=== PATIENT | female | born 1960 | race Caucasian/White ===

== ENCOUNTER 2022-07-05 14:25 | Emergency (ER) | payer SELFPAY ==
[2022-07-05 14:38] VITALS: BP 117/82; PULSE 106; RESP 18; TEMP 36.2; O2SAT 97; BMI 37.3
[2022-07-05 17:25] LABS: Appearance Urine Clear (Clear); Bilirubin Urine Negative (Negative); Blood Urine 1+ (Negative); Color Urine Yellow (Yellow); Glucose Urine Negative (Negative); Ketones Urine Negative (Negative); Leukocyte Esterase Urine 3+ (Negative); Nitrite Urine Negative (Negative); Protein Urine Negative (Negative); Specific Gravity Urine 1.015 (1.000-1.030)
--- NOTE | 2022-07-05 17:28 | CRLHL7_ITS ---
For Patients: As a result of the Cures Act, medical imaging exams and procedure reports are released immediately into your electronic medical record. You may view this report before your referring provider. If you have questions, please contact your health care provider. INDICATION: Cough, shortness of breath TECHNIQUE: Chest radiograph 2 views COMPARISON: None FINDINGS: The sensitivity and specificity of the exam are moderately limited by the patient`s body habitus. Mediastinum: The mediastinum is normal in appearance. The heart silhouette is normal in size and morphology. Lung: Both lungs are unremarkable in appearance. No sign of pleural effusion seen. No pneumothorax is identified. Bone and Soft tissue: Unremarkable for age. IMPRESSION: 1. No acute cardiopulmonary disease is seen. Dictated by: Adonay Polo MD @ 07/05/2022 18:45:23 (Electronically Signed)
--- NOTE | 2022-07-05 17:29 | ED.GENADULT ---
HPI - General Adult General Chief complaint: Shortness of Breath/Dyspnea Stated complaint: UTI, congestion, fever, shortness of breath Time Seen by Provider: 07/05/22 17:24 History of Present Illness HPI narrative: This 61-year-old female comes in reporting upper respiratory symptoms with productive cough and sore throat. She states that these symptoms started about a week ago. Her test for COVID was negative today. She states that she did have COVID toward the end of last month. She does not report any fevers. She does report some shortness of breath but arrives with oximetry at 97% on room air. She does have slight tachycardia. Related Data Home Medications Medication Instructions Recorded Confirmed chlorthalidone 25 mg tablet mg 07/05/22 cyclobenzaprine 5 mg tablet mg 07/05/22 duloxetine PO 07/05/22 lisinopril 10 mg tablet mg 07/05/22 ondansetron HCl 4 mg tablet mg 07/05/22 oxycodone 10 mg tablet,crush mg PO 07/05/22 resistant,extended release 12 hr (OxyContin) oxycodone 20 mg tablet,crush mg PO 07/05/22 resistant,extended release 12 hr (OxyContin) Previous Rx's Medication Instructions Recorded cephalexin 500 mg capsule 500 mg PO TID 7 days #21 caps 07/05/22 Allergies Allergy/AdvReac Type Severity Reaction Status Date / Time hydrochlorothiazide Allergy Unknown Verified 07/05/22 14:43 Review of Systems Status of ROS: Reports: 10 or more systems reviewed and unremarkable except as noted in History and below Narrative: Constitutional: No fevers, no weight gain or loss. Eyes: No discharge. No vision changes. HENT: No congestion, no sore throat, no ear pain. Laryngitis. Cardiovascular: No chest pain, no palpitations. Respiratory: Productive cough. Gastrointestinal: No abdominal pain, no vomiting, no diarrhea. Genitourinary: She wonders if she might have urinary tract infection. Musculoskeletal: Normal range of motion. Skin: No rashes, no pruritis. Neurological: No dizziness, weakness, sensory change, speech change. Endo/Heme/Allergies: No bruising or bleeding. No polydipsia. Pysch: no suicidality, no anxiety, no insomnia. All other systems reviewed and are negative. Exam Narrative: Exam Narrative: Constitutional: Well-developed, well-nourished, no acute distress. HEENT: Normocephalic, atraumatic. Neck: Normal range of motion. Nontender. Supple. Heart: Regular. No murmurs. Normal rate. Intact distal pulses. Lungs: Clear to auscultation. No chest discomfort. No wheezes, rhonchi, or rales. Abdomen: Normal bowel sounds. Nontender. No rebound tenderness. Genitalia: Deferred. Back: No midline tenderness. Normal range of motion. Extremities: Normal range of motion. No injury. Skin: Intact. No rash. Warm. No erythema or pallor. Neurologic: No altered sensation. No weakness. Alert and oriented. Psychiatric: No suicidality. No anxiety or depression. No insomnia. Nursing notes and vitals signs are reviewed. Const: Vital Signs, click to edit/add: Vital Signs - 24 hr 07/05/22 14:38 Temperature 97.1 F L Pulse Rate [Pulse Oximeter] 106 H Respiratory Rate 18 Blood Pressure [Ri ght Upper Arm] 117/82 Pulse Oximetry 97 Oxygen Delivery Me thod Room Air Course Vital Signs Vital signs: Initial Vital Signs Temperature 97.1 F L 07/05/22 14:38 Temperature Source Temporal Artery Scan 07/05/22 14:38 Pulse Rate 106 H 07/05/22 14:38 Respiratory Rate 18 07/05/22 14:38 Blood Pressure 117/82 07/05/22 14:38 Blood Pressure Mean 93 07/05/22 14:38 Blood Pressure Position Supine 07/05/22 14:38 Pulse Oximetry 97 07/05/22 14:38 Oxygen Delivery Method 07/05/22 14:38 Vital Signs Temperature 97.1 F L 07/05/22 14:38 Pulse Rate 106 H 07/05/22 14:38 Respiratory Rate 18 07/05/22 14:38 Blood Pressure 117/82 07/05/22 14:38 Pulse Oximetry 97 07/05/22 14:38 Oxygen Delivery Method 07/05/22 14:38 Temperature 97.1 F L 07/05/22 14:38 Pulse Rate 106 H 07/05/22 14:38 Respiratory Rate 18 07/05/22 14:38 Blood Pressure 117/82 07/05/22 14:38 Pulse Oximetry 97 07/05/22 14:38 Oxygen Delivery Method 07/05/22 14:38 Medical Decision Making MDM Narrative Medical decision making narrative: Urinalysis does show evidence of urinary tract infection. Patient received a prescription for Keflex. Chest x-ray by my review with radiology report pending shows no sign of acute infiltrate. If there is a possibility of a bacterial infection in the respiratory tract brewing, Keflex may help address this also. At the time of discharge the patient appears safe for outpatient management. The treatment plan is reviewed along with written and verbal return precautions. Reasons to return and the importance of close followup were also reviewed. Lab Data Labs: Lab Results 07/05/22 07/05/22 07/05/22 Range/Units 17:00 17:34 17:34 Urine Color Yellow (Yellow) Urine Appearance Clear (Clear) Urine pH 7.0 (5.0-8.5) Ur Specific [place] 1.015 (1.000-1.030) Urine Protein Negative (Negative) Urine Glucose (UA) Negative (Negative) Urine Ketones Negative (Negative) Urine Blood 1+ A (Negative) Urine Nitrite Negative (Negative) Urine Bilirubin Negative (Negative) Urine Urobilinogen 1.0 (0.2-1.0) Ur Leukocyte Esterase 3+ A (Negative) Urine RBC 0-2 (0-2) Urine WBC 25-50 A (0-5) Ur Squamous Epith Cells Few (None-Few) Urine Bacteria Moderate A (None) SARS-CoV-2 (PCR) Negative SARS-CoV-2 (Negative) Influenza Type A (PCR) Negative PCR FLU A (Negative) Influenza Type B (PCR) Negative PCR FLU B (Negative) RSV (PCR) Negative PCR RSV (Negative) Group A Strep DNA NOT DETECTED (Not Detectd) Discharge Plan Discharge Clinical Impression: UTI (urinary tract infection), URI (upper respiratory infection) Patient Disposition: Home, Self-Care Condition: Stable Additional Instructions: Take medication as prescribed. Follow up with MD or return if worsening. Prescriptions: New cephalexin 500 mg capsule 500 mg PO TID 7 Days Qty: 21 0RF No Action chlorthalidone 25 mg tablet Label Comments: TAKE 1 TABLET BY MOUTH ONCE DAILY duloxetine [Cymbalta] PO ondansetron HCl 4 mg tablet Label Comments: TAKE 1 TABLET BY MOUTH EVERY 8 HOURS NEEDED FOR NAUSEA lisinopril 10 mg tablet Label Comments: TAKE 1 TABLET BY MOUTH ONCE DAILY cyclobenzaprine 5 mg tablet Label Comments: TAKE 1 TO 2 TABLETS BY MOUTH EVERY 8 HOURS NEEDED oxycodone [OxyContin] 10 mg tablet,oral only,ext.rel.12 hr PO Label Comments: TAKE 1 TABLET BY ORAL ROUTE EVERY 12 HOURS FOR CHRONIC PAIN oxycodone [OxyContin] 20 mg tablet,oral only,ext.rel.12 hr PO Label Comments: TAKE 1 TABLET BY MOUTH EVERY 12 HOURS FOR CHRONIC PAIN Follow Up/Referrals: Provider,Not a Local [Primary Care Provider] - Stand Alone Forms: [employer] (P) Info Instructions
[2022-07-05 17:33] LABS: RBC Urine 0-2 (0-2)
[2022-07-05 17:34] LABS: Bacteria Urine Moderate; Squamous Epithelial Cell Urine Few (None-Few); WBC Urine 25-50 (0-5)
[2022-07-05 18:28] LABS: Strep A DNA Probe* NOT DETECTED (Not Detectd)
[2022-07-05 18:32] LABS: PCR FLU A Negative PCR FLU A (Negative); PCR FLU B Negative PCR FLU B (Negative); PCR RSV Negative PCR RSV (Negative)
[2022-07-05 18:35] LABS: SARS PCR* Negative SARS-CoV-2 (Negative)
== END 2022-07-05 18:47 | disposition home or self-care (01) ==
PROVIDERS: Emergency Provider Emergency Medicine Emergency Medical Services
DX: N39.0 Urinary tract infection, site not specified (principal); J06.9 Acute upper respiratory infection, unspecified
CPT/HCPCS: 71046; 81003; 81015; 87086; 87186; 87502; 87634; 87635; 87651; 99284

== ENCOUNTER 2022-09-22 09:19 | Emergency (ER) | payer SELFPAY ==
[2022-09-22 09:33] VITALS: BP 166/93; PULSE 94; RESP 20; TEMP 35.8; O2SAT 97; BMI 44.1
[2022-09-22 10:00] VITALS: BP 137/85; PULSE 90; RESP 16; O2SAT 96
--- NOTE | 2022-09-22 10:05 | ED.GENADULT ---
HPI - General Adult General Chief complaint: Weakness Stated complaint: Legs swollen/rashes, lumps on tongue Time Seen by Provider: 09/22/22 09:53 History of Present Illness HPI narrative: Patient is a 61 year white female who has fibromyalgia, chronic pain syndrome and is on narcotics from the pain clinic. She presents having no insurance with complaints of leg swelling as she has been out of her Lasix, she gets intermittent leg edema. She has not had by of history any significant heart failure. She takes it mostly for blood pressure issues. She has had some redness of the calves bilaterally, she is concerned she might have a UTI as well. She has no chest pain no shortness of breath. She has been on her regular doses of medicines except for the lisinopril and Lasix by her report, but her charts issues on chlorthalidone 25 mg daily. He has had some intermittent ear UTI type symptoms and wants this checked as well. No other specific complaints Related Data Home Medications Medication Instructions Recorded Confirmed chlorthalidone 25 mg tablet mg 07/05/22 cyclobenzaprine 5 mg tablet mg 07/05/22 duloxetine PO 07/05/22 lisinopril 10 mg tablet mg 07/05/22 ondansetron HCl 4 mg tablet mg 07/05/22 oxycodone 10 mg tablet,crush mg PO 07/05/22 resistant,extended release 12 hr (OxyContin) oxycodone 20 mg tablet,crush mg PO 07/05/22 resistant,extended release 12 hr (OxyContin) Previous Rx's Medication Instructions Recorded cephalexin 500 mg capsule 500 mg PO TID 7 days #21 caps 07/05/22 Allergies Allergy/AdvReac Type Severity Reaction Status Date / Time hydrochlorothiazide Allergy Unknown Verified 07/05/22 14:43 gluten Allergy Uncoded 09/22/22 09:41 Review of Systems Status of ROS: Reports: 6 or more systems reviewed and unremarkable except as noted in History and below PFSH PFSH Social History Smoking Status: Never smoker Do you use any of these nicotine containing products: None Second hand tobacco smoke exposure: Yes How often do you have a drink containing alcohol: never How often do you have six or more drinks on one occasion: Never AUDIT-C Alcohol total score: 0 Non-prescribed substance use: denies use service: No Exam Narrative: Exam Narrative: Objective: Patient's vital signs show elevated blood pressure O2 sats 97% on room air she is afebrile HEENT is unremarkable Neck is supple Chest is clear Heart rhythm rate rhythm regular without murmur Abdomen obese benign nontender Lower extremity shows some redness along in the distal 3rd of both legs mild 1+ edema of the lower extremities. Neurologic is non focal, good peripheral perfusion noted Const: Vital Signs, click to edit/add: Vital Signs - 24 hr 09/22/22 09:33 09/22/22 10:00 09/22/22 10:30 Temperature 96.5 F L Pulse Rate [Pulse Oximeter] 94 90 80 Respiratory Rate 20 16 16 Blood Pressure [Ri ght Forearm] 166/93 H 137/85 135/86 Pulse Oximetry 97 96 97 Oxygen Delivery Me thod Room Air Room Air Room Air 09/22/22 11:00 Temperature Pulse Rate [Pulse Oximeter] 78 Respiratory Rate 16 Blood Pressure [Ri ght Forearm] 144/86 H Pulse Oximetry 93 Oxygen Delivery Me thod Room Air Course Vital Signs Vital signs: Initial Vital Signs Temperature 96.5 F L 09/22/22 09:33 Temperature Source Temporal Artery Scan 09/22/22 09:33 Pulse Rate 94 09/22/22 09:33 Pulse Rhythm Regular 09/22/22 09:33 Respiratory Rate 20 09/22/22 09:33 Blood Pressure 166/93 H 09/22/22 09:33 Blood Pressure Mean 117 H 09/22/22 09:33 Pulse Oximetry 97 09/22/22 09:33 Oxygen Delivery Method Room Air 09/22/22 09:33 Vital Signs Temperature 96.5 F L 09/22/22 09:33 Pulse Rate 94 09/22/22 09:33 Respiratory Rate 20 09/22/22 09:33 Blood Pressure 166/93 H 09/22/22 09:33 Pulse Oximetry 97 09/22/22 09:33 Oxygen Delivery Method Room Air 09/22/22 09:33 Temperature 96.5 F L 09/22/22 09:33 Pulse Rate 78 09/22/22 11:00 Respiratory Rate 16 09/22/22 11:00 Blood Pressure 144/86 H 09/22/22 11:00 Pulse Oximetry 93 09/22/22 11:00 Oxygen Delivery Method Room Air 09/22/22 11:00 Medical Decision Making MDM Narrative Medical decision making narrative: Patient is a 61-year-old female without insurance who is currently under chronic pain management for fibromyalgia. She needs a refill on her chlorthalidone and lisinopril. I will write a prescription for this for her for 30 days. Social Service will check and see if there is a [facility] resource that she can get medications more chiefly. Recommend follow-up with primary care in 2-3 days certainly sooner changes or concerns. I am also going to give her prescription for Keflex 500 t.i.d. times 10 days for her leg inflammation and possible mild cellulitis. This should also cover UTI. If that turns out to be positive. Addendum 10 40 7p a a.m. patient's EKG shows low-voltage QRS but normal sinus rhythm, no acute ST T wave changes, white count is 4000 hemoglobin is 9.3 and should be followed up by the patient with primary care ER profile is unremarkable urinalysis is pending, but because of the patient's lower extremity cellulitis will treat her with Keflex, will follow up the urinalysis and urine culture as needed. Recommend recheck with primary care in 2-3 days certainly sooner changes or concerns return to ED. Lab Data Labs: Lab Results 09/22/22 09/22/22 Range/Units 09:55 10:14 WBC 4.06 L (4.50-11.00) K/uL RBC 3.13 L (4.00-5.20) m/uL Hgb 9.3 L (12.0-16.0) gm/dL Hct 29.1 L (33.0-51.0) % MCV 93 (80-100) fL MCH 30 (26-34) pg MCHC 32 (32-36) gm/dL RDW Coeff of Swapnil 14.1 (11.5-15.5) % Plt Count 253 (140-440) K/uL Neut % (Auto) 63.8 (42.0-72.0) % Lymph % (Auto) 22.2 (20-44) % [place] % (Auto) 8.9 (0.0-11.0) % Eos % (Auto) 4.4 (0.0-7.0) % Baso % (Auto) 0.5 (0.0-3.0) % Neut # (Auto) 2.60 (1.7-7.0) K/uL Lymph # (Auto) 0.90 (0.90-2.90) K/uL [place] # (Auto) 0.40 (0.00-0.90) K/UL Eos # (Auto) 0.20 (0.00-0.50) K/uL Baso # (Auto) 0.00 (0.00-0.30) K/uL Sodium 142 (135-149) mmol/L Potassium 3.6 (3.6-5.1) mmol/L Chloride 109 (96-114) mmol/L Carbon Dioxide 26 (20-32) mmol/L BUN 9 (7-30) mg/dL Creatinine 0.7 (0.5-1.5) mg/dL Estimated Creat Clear 81.01 Estimated GFR 100 ml/min Glucose 98 (60-115) mg/dL Calcium 8.6 (8.4-10.6) mg/dL C-Reactive Protein 1.0 (0.5-1.0) mg/dL Urine Color Yellow (Yellow) Urine Appearance Cloudy A (Clear) Urine pH 5.5 (5.0-8.5) Ur Specific [place] 1.010 (1.000-1.030) Urine Protein Negative (Negative) Urine Glucose (UA) Negative (Negative) Urine Ketones Negative (Negative) Urine Blood Trace-lysed A (Negative) Urine Nitrite Negative (Negative) Urine Bilirubin Negative (Negative) Urine Urobilinogen 0.2 (0.2-1.0) Ur Leukocyte Esterase 2+ A (Negative) Urine RBC 2-5 A (0-2) Urine WBC 50-100 A (0-5) Ur Squamous Epith Cells Few (None-Few) Urine Bacteria Moderate A (None) Discharge Plan Discharge Clinical Impression: Bilateral edema of lower extremity, Cellulitis, Hypertension, Anemia Patient Disposition: Home w/ Parent or Adult Condition: Stable Additional Instructions: Restart the chlorthalidone and lisinopril. Prescription written. Keflex 500 t.i.d. times 10 days for leg redness. Recheck with primary care in 2-3 days, elevate legs, return sooner problems concerns, low-salt diet. Hemoglobin is a little low, should talk about that with your regular doctor. Would recommend you also recheck with your regular doctor in 2-3 days. To make sure your legs are doing well. Would get any pain medication from her chronic pain clinic Activity Level: Light activity Discharge Diet: Heart Healthy (2 gm sodium, low fat) Prescriptions: No Action chlorthalidone 25 mg tablet Patient Comments: TAKE 1 TABLET BY MOUTH ONCE DAILY duloxetine [Cymbalta] PO ondansetron HCl 4 mg tablet Patient Comments: TAKE 1 TABLET BY MOUTH EVERY 8 HOURS NEEDED FOR NAUSEA lisinopril 10 mg tablet Patient Comments: TAKE 1 TABLET BY MOUTH ONCE DAILY cyclobenzaprine 5 mg tablet Patient Comments: TAKE 1 TO 2 TABLETS BY MOUTH EVERY 8 HOURS NEEDED oxycodone [OxyContin] 10 mg tablet,oral only,ext.rel.12 hr PO Patient Comments: TAKE 1 TABLET BY ORAL ROUTE EVERY 12 HOURS FOR CHRONIC PAIN oxycodone [OxyContin] 20 mg tablet,oral only,ext.rel.12 hr PO Patient Comments: TAKE 1 TABLET BY MOUTH EVERY 12 HOURS FOR CHRONIC PAIN cephalexin 500 mg capsule 500 mg PO TID 7 Days Qty: 21 0RF Follow Up/Referrals: Provider,Not a Local [Primary Care Provider] - Stand Alone Forms: [employer] Info Instructions
--- NOTE | 2022-09-22 10:10 | PC.NURSE ---
director of services consulted for no insurance and trouble filling her medications.
[2022-09-22] MEDS: FUROSEMIDE 40 MG TABLET PO (10:18)
--- NOTE | 2022-09-22 10:21 | ED.NURSE ---
marketing services coordinator met with patient and provided good RX cards and resources for [facility]. Patient very appreciative.
--- NOTE | 2022-09-22 10:21 | PC.SOCIAL ---
Pt. has no insurance. Gave pt. the information for [facility] through [facility] and [facility] and [place] [facility] card to use for prescriptions.
[2022-09-22 10:22] LABS: Basophils Percent Auto 0.5 % (0.0-3.0); Eosinophils Percent Auto 4.4 % (0.0-7.0); Hematocrit 29.1 % (33.0-51.0); Hemoglobin* 9.3 gm/dL (12.0-16.0); Immature Granulocytes Pct Auto 0.2 %; Lymphocytes Percent Auto 22.2 % (20-44); Mean Corpuscular HGB Conc 32 gm/dL (32-36); Mean Corpuscular Hemoglobin 30 pg (26-34); Mean Corpuscular Volume 93 fL (80-100); Monocytes Percent Auto 8.9 % (0.0-11.0); Neutrophils Percent Auto 63.8 % (42.0-72.0); Platelet Count* 253 K/uL (140-440); RDW Coefficient of Variation % 14.1 % (11.5-15.5); Red Blood Count 3.13 m/uL (4.00-5.20); White Blood Count* 4.06 K/uL (4.50-11.00)
[2022-09-22 10:30] VITALS: BP 135/86; PULSE 80; RESP 16; O2SAT 97
[2022-09-22 10:33] LABS: Slide Review Reflex No
[2022-09-22 10:38] LABS: Chloride* 109 mmol/L (96-114); Sodium* 142 mmol/L (135-149)
[2022-09-22 10:39] LABS: Potassium* 3.6 mmol/L (3.6-5.1)
[2022-09-22 10:40] LABS: Appearance Urine Cloudy (Clear); Bilirubin Urine Negative (Negative); Blood Urine Trace-lysed (Negative); Color Urine Yellow (Yellow); Glucose Urine Negative (Negative); Ketones Urine Negative (Negative); Leukocyte Esterase Urine 2+ (Negative); Nitrite Urine Negative (Negative); Protein Urine Negative (Negative); Urobilinogen Urine 0.2 (0.2-1.0); pH Urine 5.5 (5.0-8.5)
[2022-09-22 10:41] LABS: Creatinine* 0.7 mg/dL (0.5-1.5); Est. Creatinine Clearance* 81.01; Estimated Glomerular Filt Rate 100 ml/min
[2022-09-22 10:42] LABS: Blood Urea Nitrogen* 9 mg/dL (7-30); Calcium* 8.6 mg/dL (8.4-10.6); Carbon Dioxide* 26 mmol/L (20-32); Glucose* 98 mg/dL (60-115)
[2022-09-22 11:00] VITALS: BP 144/86; PULSE 78; RESP 16; O2SAT 93
[2022-09-22 11:13] LABS: Bacteria Urine Moderate; Squamous Epithelial Cell Urine Few (None-Few); WBC Urine 50-100 (0-5)
== END 2022-09-22 11:30 | disposition home or self-care (01) ==
LOC: ED 10:36
PROVIDERS: Emergency Provider Family Medicine
DX: R60.9 Edema, unspecified (principal); L03.116 Cellulitis of left lower limb; L03.115 Cellulitis of right lower limb; D64.9 Anemia, unspecified
CPT/HCPCS: 36415; 80048; 81001; 85025; 86140; 87086; 87186; 93005; 99284; A9270

== ENCOUNTER 2023-02-01 18:37 | Emergency (ER) | payer MEDICAID, SELFPAY ==
[2023-02-01] VITALS (55 sets, daily range): BP systolic 94–186; BP diastolic 37–156; PULSE 84–95; RESP 18; TEMP 36.5; O2SAT 89–100
--- NOTE | 2023-02-01 18:52 | CRLHL7_ITS ---
For Patients: As a result of the Cures Act, medical imaging exams and procedure reports are released immediately into your electronic medical record. You may view this report before your referring provider. If you have questions, please contact your health care provider. INDICATION: Headaches. Trauma. TECHNIQUE: Noncontrast axial CT of the head is submitted. No comparisons. FINDINGS: Moderate cerebral atrophy. The ventricles, sulci and gyri are of normal size, shape and contour for age and degree of atrophy. Midline structures are centrally located. No convincing evidence of suspicious intra- or extra-axial fluid collections. IMPRESSION: 1. No radiographic evidence of acute intracranial abnormalities. 2. Moderate cerebral atrophy. Dictated by Philip Denise MD @ 02/01/2023 7:30:05 PM Please note that all CT scans at this facility use dose modulation, iterative reconstruction, and/or weight-based dosing when appropriate to reduce radiation dose to as low as reasonably achievable. Dictated by: Philip Denise MD @ 02/01/2023 19:30:11 (Electronically Signed)
--- NOTE | 2023-02-01 18:52 | ED_ITS ---
HPI - Head Injury General Time Seen by Provider: 18:52 Date Seen: 02/01/23 Chief complaint: Head Injury/Pain Stated complaint: Bump on head, confusion Time Seen by Provider: 02/01/23 18:49 Source: patient, family and RN notes reviewed Mode of arrival: ambulatory Limitations: no limitations History of Present Illness HPI Narrative: This 62-year-old female is brought in by her for concern of new facial bruising and his being concerned. He left her for about an hour prior to arriving here, came home and she was confused, had bruising of her forehead. She can ambulate, does not remember what happen. She does take oxycodone for fibromyalgia but he controls them, he states she has not had any since about 10 or 11 this morning. If he does not control them, he admits that she will overuse them. She reportedly does not drink, does not use any other illicit substances. She does not remember what happened. She has bruising above her right forehead, is not on any blood thinners. Her states the bruising was not there. She did fall a couple days ago and has bruising on her right humeral area, remembers falling forward hitting her arm. She is seemingly confused but alert. Neither of them really have any idea what happened to her. When ask her if she has pain, she says a little bit but does not define where. She is not giving me any complaint of pain in her head, no neck or back pain but later when ask her, she maybe has some neck pain. She is ambulatory here. Denies pain in her legs, does state her left shoulder hurts later on. Denies any difficulty breathing, no chest pain, no abdominal pain. She is not noted to have been sick prior to any of this. Complaint: head injury Related Data Home Medications Medication Instructions Recorded Confirmed chlorthalidone 25 mg tablet mg 07/05/22 cyclobenzaprine 5 mg tablet mg 07/05/22 duloxetine PO 07/05/22 lisinopril 10 mg tablet mg 07/05/22 ondansetron HCl 4 mg tablet mg 07/05/22 oxycodone 10 mg tablet,crush mg PO 07/05/22 resistant,extended release 12 hr (OxyContin) oxycodone 20 mg tablet,crush mg PO 07/05/22 resistant,extended release 12 hr (OxyContin) Previous Rx's Medication Instructions Recorded cephalexin 500 mg capsule 500 mg PO TID 7 days #21 caps 07/05/22 Allergies Allergy/AdvReac Type Severity Reaction Status Date / Time hydrochlorothiazide Allergy Unknown Verified 02/01/23 18:56 gluten Allergy Uncoded 09/22/22 09:41 Review of Systems Status of ROS: Reports: 6 or more systems reviewed and unremarkable except as noted in History and below PFSH PFS Social History Smoking Status: Never smoker Do you use any of these nicotine containing products: None Second hand tobacco smoke exposure: Yes How often do you have a drink containing alcohol: never How often do you have six or more drinks on one occasion: Never AUDIT-C Alcohol total score: 0 Non-prescribed substance use: denies use service: No Exam Const: Vital Signs, click to edit/add: Vital Signs - 24 hr 02/01/23 18:59 02/01/23 19:18 02/01/23 19:19 Temperature 97.7 F Pulse Rate 88 87 Pulse Rate [Pulse Oximeter] 90 Respiratory Rate 18 Blood Pressure 163/93 H Blood Pressure [Ri ght Upper Arm] 139/79 Pulse Oximetry 95 100 100 Oxygen Delivery Me thod Room Air 02/01/23 19:22 02/01/23 19:26 02/01/23 19:30 Temperature Pulse Rate 87 86 Pulse Rate [Pulse Oximeter] Respiratory Rate Blood Pressure 170/99 H 158/95 H Blood Pressure [Ri ght Upper Arm] Pulse Oximetry 100 99 Oxygen Delivery Me thod 02/01/23 19:31 02/01/23 19:37 02/01/23 19:42 Temperature Pulse Rate 87 85 90 Pulse Rate [Pulse Oximeter] Respiratory Rate Blood Pressure 164/92 H 186/156 H 146/96 H Blood Pressure [Ri ght Upper Arm] Pulse Oximetry 99 97 89 Oxygen Delivery Me thod 02/01/23 19:45 02/01/23 19:57 02/01/23 20:00 Temperature Pulse Rate 88 87 87 Pulse Rate [Pulse Oximeter] Respiratory Rate Blood Pressure 141/87 H Blood Pressure [Ri ght Upper Arm] Pulse Oximetry 99 99 97 Oxygen Delivery Me thod 02/01/23 20:02 02/01/23 20:07 02/01/23 20:12 Temperature Pulse Rate 87 86 85 Pulse Rate [Pulse Oximeter] Respiratory Rate Blood Pressure 155/64 H 152/102 H 119/89 Blood Pressure [Ri ght Upper Arm] Pulse Oximetry 98 98 98 Oxygen Delivery Me thod 02/01/23 20:15 02/01/23 20:17 02/01/23 20:21 Temperature Pulse Rate 86 85 87 Pulse Rate [Pulse Oximeter] Respiratory Rate Blood Pressure 138/70 156/95 H Blood Pressure [Ri ght Upper Arm] Pulse Oximetry 97 97 97 Oxygen Delivery Me thod 02/01/23 20:27 02/01/23 20:30 02/01/23 20:31 Temperature Pulse Rate 84 85 84 Pulse Rate [Pulse Oximeter] Respiratory Rate Blood Pressure 156/87 H 154/96 H Blood Pressure [Ri ght Upper Arm] Pulse Oximetry 98 97 96 Oxygen Delivery Me thod 02/01/23 20:37 02/01/23 20:41 02/01/23 20:45 Temperature Pulse Rate 87 87 90 Pulse Rate [Pulse Oximeter] Respiratory Rate Blood Pressure 153/107 H 143/84 H Blood Pressure [Ri ght Upper Arm] Pulse Oximetry 97 98 98 Oxygen Delivery Me thod 02/01/23 20:47 02/01/23 20:52 02/01/23 20:53 Temperature Pulse Rate 89 90 89 Pulse Rate [Pulse Oximeter] Respiratory Rate Blood Pressure 130/87 136/98 H Blood Pressure [Ri ght Upper Arm] Pulse Oximetry 97 99 98 Oxygen Delivery Me thod 02/01/23 20:58 02/01/23 21:00 02/01/23 21:02 Temperature Pulse Rate 88 86 86 Pulse Rate [Pulse Oximeter] Respiratory Rate Blood Pressure 94/80 149/92 H Blood Pressure [Ri ght Upper Arm] Pulse Oximetry 98 98 98 Oxygen Delivery Me thod 02/01/23 21:08 02/01/23 21:12 02/01/23 21:15 Temperature Pulse Rate 89 87 89 Pulse Rate [Pulse Oximeter] Respiratory Rate Blood Pressure 108/87 147/85 H Blood Pressure [Ri ght Upper Arm] Pulse Oximetry 99 97 99 Oxygen Delivery Me thod 02/01/23 21:17 02/01/23 21:22 02/01/23 21:28 Temperature Pulse Rate 88 84 84 Pulse Rate [Pulse Oximeter] Respiratory Rate Blood Pressure 143/85 H 123/95 H 145/87 H Blood Pressure [Ri ght Upper Arm] Pulse Oximetry 99 98 99 Oxygen Delivery Me thod 02/01/23 21:30 02/01/23 21:31 02/01/23 21:37 Temperature Pulse Rate 85 85 85 Pulse Rate [Pulse Oximeter] Respiratory Rate Blood Pressure 149/86 H 149/78 H Blood Pressure [Ri ght Upper Arm] Pulse Oximetry 98 99 99 Oxygen Delivery Me thod 02/01/23 21:42 02/01/23 21:45 02/01/23 21:47 Temperature Pulse Rate 87 88 92 Pulse Rate [Pulse Oximeter] Respiratory Rate Blood Pressure 156/85 H 163/114 H Blood Pressure [Ri ght Upper Arm] Pulse Oximetry 98 99 98 Oxygen Delivery Wa thod 62-year-old female that is moving her ar ms and legs around, is able to speak, speech seems normal. Pupils are small but has a conjugate gaze, sclera clear. There is no periorbital swelling or erythema. She has ecchymosis above her right supraorbital ridge in on the forehead. No open wounds. No drainage in the ears or from the nares noted. No oral pharyngeal trauma noted. She sits up without any asking, no definite midline tenderness of her cervical or lower spine, no visible traumatic changes. No paraspinous tenderness. Lying in the bed she will move her head from side to side. No cervical adenopathy, no thyromegaly masses or nodules. Lungs are clear, good air entry, no wheezing or crackles. CV sounds regular, systolic murmur noted, probably 2/6 heard upper sternal borders best. Abdomen is soft, non distended, nontender anywhere. Do not feel any masses. Again exam is nonfocal, will follow commands, upper lower extremities without any focal neurologic deficits, see an old bruise on her upper outer lateral humeral area, watch her move her arms about in bed. Documenting provider has reviewed patient's vital signs: yes Course Course ED Course: I would say her presenting GCS is 14/15 due to some probable confusion. She definitely has bruising on the right frontal forehead area and above the eye, will proceed with a head CT, given some complaints of neck pain will get CT of her cervical spine. Will also get of a chest x-ray as well as left shoulder imaging. She does seem to have altered mental status, will do metabolic, infectious workup as well. I do think toxidrome is a are certainly potential here. She will be on cardiac monitoring, pulse oximetry. Reevaluation(s) Time of Reevaluation #1: 20:53 Reevaluation #1: Patient's son is here right now, is returning. Patient is more awake but son feels she still quite confused. She knows his birthday, her own birthday, thinks the year is 2021, cannot give me anything beyond that for date. She does know she is at [facility]. Her son saw her last night, she was not like this and did not have the bruise on her forehead. She denies using extra oxycodone. Besides the confusion, she does not have a focal neurologic exam. Discussed with them that she may need observation for this significant confusion and amnesia for the events, consideration for MRI in the morning could be entertained if felt clinically appropriate. May need to talk to our hospitalist. Believe there is still a few labs that we are waiting on at this time. Did review x-ray imaging with them. She states she is just really thirsty, will allow her to drink. Consultations Consultation #1: Spoke with hospitalist Dr. Diana, reviewed the drug screen positive for tricyclic antidepressants and oxycodone. Her does not nor medications. I see no hemodynamic changes or EKG changes that are concerning for tricyclic overdose. She has some relative mild hypokalemia with a potassium of 3.3 which is not responsible for these changes. As discussed with her son, this all could be significant concussion with confusion and amnesia for events. Have spoken with Dr. Diana the hospitalist, believe patient should be observed overnight and if not clearing, consideration for MRI and possibly need to talk to Neurology tomorrow. He concurs with the plan, will be down to see her. I do not think she needs any neuro imaging with CTAs at this time, I did not find any focal neurologic examination suggestive of stroke, did ask Dr. Diana to reassess as well. Time: 21:00 Vital Signs Vital signs: Initial Vital Signs Temperature 97.7 F 02/01/23 18:59 Temperature Source Temporal Artery Scan 02/01/23 18:59 Pulse Rate 90 09/19/23 18:59 Respiratory Rate 18 02/01/23 18:59 Blood Pressure 139/79 02/01/23 18:59 Blood Pressure Mean 99 02/01/23 18:59 Blood Pressure Position Sitting 02/01/23 18:59 Pulse Oximetry 95 02/01/23 18:59 Oxygen Delivery Method Room Air 02/01/23 18:59 Vital Signs Temperature 97.7 F 02/01/23 18:59 Pulse Rate 90 02/01/23 18:59 Respiratory Rate 18 02/01/23 18:59 Blood Pressure 139/79 02/01/23 18:59 Pulse Oximetry 95 02/01/23 18:59 Oxygen Delivery Method Room Air 02/01/23 18:59 Temperature 97.7 F 02/01/23 18:59 Pulse Rate 92 02/01/23 21:47 Respiratory Rate 18 02/01/23 18:59 Blood Pressure 163/114 H 02/01/23 21:47 Pulse Oximetry 98 02/01/23 21:47 Oxygen Delivery Method Room Air 02/01/23 18:59 MDM - Head Injury Lab Data Attestation: I reviewed the patient's lab results. Labs: Lab Results 02/01/23 02/01/23 02/01/23 Range/Units 19:56 20:00 20:20 WBC 8.47 (4.50-11.00) K/uL RBC 4.25 (4.00-5.20) m/uL Hgb 12.3 (12.0-16.0) gm/dL Hct 37.1 (33.0-51.0) % MCV 87 (80-100) fL MCH 29 (26-34) pg MCHC 33 (32-36) gm/dL RDW Coeff of Swapnil 15.0 (11.5-15.5) % Plt Count 343 (140-440) K/uL Neut % (Auto) 72.3 H (42.0-72.0) % Lymph % (Auto) 19.8 L (20-44) % Spalding % (Auto) 7.0 (0.0-11.0) % Eos % (Auto) 0.5 (0.0-7.0) % Baso % (Auto) 0.2 (0.0-3.0) % Neut # (Auto) 6.10 (1.7-7.0) K/uL Lymph # (Auto) 1.70 (0.90-2.90) K/uL Spalding # (Auto) 0.60 (0.00-0.90) K/UL Eos # (Auto) 0.04 (0.00-0.50) K/uL Baso # (Auto) 0.02 (0.00-0.30) K/uL Abs Immat Gran (auto) 0.02 (0.00-0.30) K/uL Imm/Tot Granulo (auto) 0.2 % Sodium 143 (135-149) mmol/L Potassium 3.3 L (3.6-5.1) mmol/L Chloride 106 (96-114) mmol/L Carbon Dioxide 26 (20-32) mmol/L Anion Gap 11 (7-15) mEq/L BUN 25 (7-30) mg/dL Creatinine 0.9 (0.5-1.5) mg/dL Estimated GFR 73 ml/min Glucose 119 H (60-115) mg/dL Lactate 1.4 (0.5-1.9) mmol/L Calcium 9.8 (8.4-10.6) mg/dL Total Bilirubin 0.8 (0.1-1.5) mg/dL AST 39 H (12-35) U/L ALT 25 (4-35) U/L Alkaline Phosphatase 88 (40-150) U/L C-Reactive Protein 0.6 (0.5-1.0) mg/dL Total Protein 7.9 (6.0-8.3) g/dL Albumin 4.6 (3.3-5.0) g/dL Urine Color Xochitl A (Yellow) Urine Appearance Clear (Clear) Urine pH 5.5 (5.0-8.5) Ur Specific Jewett >= 1.030 (1.000-1.030) Urine Protein Trace A (Negative) Urine Glucose (UA) Negative (Negative) Urine Ketones 1+ A (Negative) Urine Blood Negative (Negative) Urine Nitrite Negative (Negative) Urine Bilirubin Negative (Negative) Urine Urobilinogen 0.2 (0.2-1.0) Ur Leukocyte Esterase Negative (Negative) Urine RBC 0-2 (0-2) Urine WBC 0-2 (0-5) Ur Squamous Epith Cells Few (None-Few) Urine Bacteria Few A (None) Urine Opiates Screen Negative (Negative) Ur Oxycodone Screen POSITIVE A (Negative) Urine Methadone Screen Negative (Negative) Ur Propoxyphene Screen Negative (Negative) Ur Barbiturates Screen Negative (Negative) U Tricyclic Antidepress POSITIVE A (Negative) Ur Phencyclidine Scrn Negative (Negative) Ur Amphetamines Screen Negative (Negative) U Methamphetamines Scrn Negative (Negative) U Benzodiazepines Scrn Negative (Negative) Urine Cocaine Screen Negative (Negative) U Marijuana (THC) Screen Negative (Negative) Ur Drug Screen Comment See Note Ethyl Alcohol < 0.01 L (0.01-0.03) % SARS-CoV-2 (PCR) Negative SARS-CoV-2 (Negative) POC Troponin I 0.00 L (0.01-0.04) ng/ml Imaging Data CT scan - head: Attestation: I have reviewed the pertinent imaging results. Radiologist's impression: Patient: STEVIE ABDULLAHI Facility:[facility] Patient ID:?[id number] Site Patient ID:?[id number]. Site :?1960 Study:?CT Head CODE TRAUMA-02/01/2023 7:25:38 PM Ordering Physician:Qamar Lee Final Report: INDICATION: Headaches. Trauma. TECHNIQUE: Noncontrast axial CT of the head is submitted. No comparisons. FINDINGS: Moderate cerebral atrophy. The ventricles, sulci and gyri are of normal size, shape and contour for age and degree of atrophy. Midline structures are centrally located. No convincing evidence of suspicious intra- or extra-axial fluid collections. IMPRESSION: 1. No radiographic evidence of acute intracranial abnormalities. 2. Moderate cerebral atrophy. Dictated by Philip Denise MD @ 02/01/2023 7:30:05 PM Please note that all CT scans at this facility use dose modulation, iterative reconstruction, and/or weight-based dosing when appropriate to reduce radiation dose to as low as reasonably achievable. Dictated by: Philip Denise MD @ 02/01/2023 19:30:11 (Electronic Signature) CT cervical spine: Attestation: I have reviewed the pertinent imaging results. Radiologist's impression: Patient: STEVIE ABDULLAHI Facility:?[facility] Patient ID:?[id number] Site Patient ID:?[id number]. Site :?1960 Study:?CT Spine Cervical CODE TRAUMA-02/01/2023 7:26:19 PM Ordering Physician:Qamar Lee Final Report: Indication: Neck pain. Trauma. Technique: Noncontrast axial CT of the cervical spine with coronal and sagittal reformats are provided. No comparisons. Findings: The overall stature, alignment of the cervical spine is within normal limits. No convincing evidence of suspicious bony fragments narrowing the central canal or neural foramina. Prevertebral soft tissues, cervical airway, dens and lateral masses are within normal limits. Mild scattered degenerative changes of the cervical spine. Impression: 1. No convincing radiographic evidence of acute osseous injury. 2. Mild scattered degenerative changes of the cervical spine. Dictated by Philip Denise MD @ 02/01/2023 7:31:28 PM Please note that all CT scans at this facility use dose modulation, iterative reconstruction, and/or weight-based dosing when appropriate to reduce radiation dose to as low as reasonably achievable. Dictated by: Philip Denise MD @ 02/01/2023 19:31:35 (Electronic Signature) Chest x-ray: Attestation: I have reviewed the pertinent imaging results. Radiologist's impression: Patient: STEVIE ABDULLAHI Facility:[facility] Patient ID:?[id number] Site Patient ID:?[id number]. Site :?1960 Study:?XRay Chest 1 VIEW-02/01/2023 7:26:54 PM Ordering Physician:?Marcella Lee Final Report: INDICATION: Fall TECHNIQUE: Single view chest. FINDINGS: The lungs are clear. The heart, mediastinum and pulmonary vessels are of normal size. There is no evidence of pleural disease. IMPRESSION: Negative chest. Dictated by Lilly Sahu MD @ 02/01/2023 8:36:11 PM (Electronic Signature) XR left shoulder: Attestation: I have reviewed the pertinent imaging results. Radiologist's impression: Patient: STEVIE ABDULLAHI Facility:[facility] Patient ID:?[id number] Site Patient ID:?[id number]. Site :?1960 Study:?XRay Shoulder Left -02/01/2023 7:26:42 PM Ordering Physician:Qamar Lee Final Report: INDICATION: Fall TECHNIQUE: Three views left shoulder FINDINGS: Normal alignment. No acute fractures or acute osseous abnormalities. Normal a rticulation glenohumeral joint. Calcific tendinosis. IMPRESSION: No acute fracture. Dictated by Lilly Sahu MD @ 02/01/2023 8:35:38 PM (Electronic Signature) ECG Data Attestation: I personally reviewed and interpreted this ECG as follows: (Sinus rhythm, 87 beats per minute. No ischemia. QT corrected 440 milliseconds.) ECG interpretation date: 02/01/23 ECG interpretation time: 19:06 Prior ECG tracings: not available for review Discharge Plan Discharge Clinical Impression: Amnesia, Closed head injury, Acute confusion Patient Disposition: Home w/ Parent or Adult Condition: Unchanged Activity Level: Activity as Tolerated
--- NOTE | 2023-02-01 18:54 | CRLHL7_ITS ---
For Patients: As a result of the Century Cures Act, medical imaging exams and procedure reports are released immediately into your electronic medical record. You may view this report before your referring provider. If you have questions, please contact your health care provider. INDICATION: Fall TECHNIQUE: Single view chest. FINDINGS: The lungs are clear. The heart, mediastinum and pulmonary vessels are of normal size. There is no evidence of pleural disease. IMPRESSION: Negative chest. Dictated by Lilly Sahu MD @ 02/01/2023 8:36:11 PM (Electronically Signed)
--- NOTE | 2023-02-01 18:54 | CRLHL7_ITS ---
For Patients: As a result of the Century Cures Act, medical imaging exams and procedure reports are released immediately into your electronic medical record. You may view this report before your referring provider. If you have questions, please contact your health care provider. INDICATION: Fall TECHNIQUE: Three views left shoulder FINDINGS: Normal alignment. No acute fractures or acute osseous abnormalities. Normal articulation glenohumeral joint. Calcific tendinosis. IMPRESSION: No acute fracture. Dictated by Lilly Sahu MD @ 02/01/2023 8:35:38 PM (Electronically Signed)
--- NOTE | 2023-02-01 18:54 | CRLHL7_ITS ---
For Patients: As a result of the Century Cures Act, medical imaging exams and procedure reports are released immediately into your electronic medical record. You may view this report before your referring provider. If you have questions, please contact your health care provider. Indication: Neck pain. Trauma. Technique: Noncontrast axial CT of the cervical spine with coronal and sagittal reformats are provided. No comparisons. Findings: The overall stature, alignment of the cervical spine is within normal limits. No convincing evidence of suspicious bony fragments narrowing the central canal or neural foramina. Prevertebral soft tissues, cervical airway, dens and lateral masses are within normal limits. Mild scattered degenerative changes of the cervical spine. Impression: 1. No convincing radiographic evidence of acute osseous injury. 2. Mild scattered degenerative changes of the cervical spine. Dictated by Philip Denise MD @ 02/01/2023 7:31:28 PM Please note that all CT scans at this facility use dose modulation, iterative reconstruction, and/or weight-based dosing when appropriate to reduce radiation dose to as low as reasonably achievable. Dictated by: Philip Denise MD @ 02/01/2023 19:31:35 (Electronically Signed)
[2023-02-01 20:08] LABS: Lactate* 1.4 mmol/L (0.5-1.9)
[2023-02-01 20:10] LABS: Amphetamine Screen Urine Negative (Negative); Appearance Urine Clear (Clear); Barbiturate Screen Urine Negative (Negative); Benzodiazepines Screen Urine Negative (Negative); Bilirubin Urine Negative (Negative); Blood Urine Negative (Negative); Cannabinoid Screen Urine Negative (Negative); Cocaine Screen Urine Negative (Negative); Color Urine Amber (Yellow); Glucose Urine Negative (Negative); Ketones Urine 1+ (Negative); Leukocyte Esterase Urine Negative (Negative); Methadone Screen Urine Negative (Negative); Methamphetamines Screen Urine Negative (Negative); Nitrite Urine Negative (Negative); Opiate Screen Urine Negative (Negative); Oxycodone Screen Urine POSITIVE (Negative); Phencyclidine Screen Urine Negative (Negative); Protein Urine Trace (Negative); Specific Gravity Urine >= 1.030 (1.000-1.030); Tricyclic Antidepressant Urine POSITIVE (Negative); Urobilinogen Urine 0.2 (0.2-1.0); pH Urine 5.5 (5.0-8.5)
[2023-02-01 20:17] LABS: Bacteria Urine Few; RBC Urine 0-2 (0-2); Squamous Epithelial Cell Urine Few (None-Few); WBC Urine 0-2 (0-5)
[2023-02-01 20:20] LABS: Basophils Absolute Auto 0.02 K/uL (0.00-0.30); Basophils Percent Auto 0.2 % (0.0-3.0); Eosinophils Absolute Auto 0.04 K/uL (0.00-0.50); Eosinophils Percent Auto 0.5 % (0.0-7.0); Hematocrit 37.1 % (33.0-51.0); Hemoglobin* 12.3 gm/dL (12.0-16.0); Immature Granulocytes Abs Auto 0.02 K/uL (0.00-0.30); Immature Granulocytes Pct Auto 0.2 %; Lymphocytes Percent Auto 19.8 % (20-44); Mean Corpuscular HGB Conc 33 gm/dL (32-36); Mean Corpuscular Hemoglobin 29 pg (26-34); Mean Corpuscular Volume 87 fL (80-100); Neutrophils Percent Auto 72.3 % (42.0-72.0); Platelet Count* 343 K/uL (140-440); Red Blood Count 4.25 m/uL (4.00-5.20); White Blood Count* 8.47 K/uL (4.50-11.00)
[2023-02-01 20:23] LABS: Slide Review Reflex No
[2023-02-01 20:37] LABS: Albumin* 4.6 g/dL (3.3-5.0); Chloride* 106 mmol/L (96-114); Potassium* 3.3 mmol/L (3.6-5.1); Sodium* 143 mmol/L (135-149)
[2023-02-01 20:39] LABS: Bilirubin Total* 0.8 mg/dL (0.1-1.5); Creatinine* 0.9 mg/dL (0.5-1.5); Estimated Glomerular Filt Rate 73 ml/min
[2023-02-01 20:40] LABS: Alanine Aminotransferase* 25 U/L (4-35); Alkaline Phosphatase* 88 U/L (40-150); Anion Gap 11 mEq/L (7-15); Aspartate Amino Transferase* 39 U/L (12-35); Blood Urea Nitrogen* 25 mg/dL (7-30); Carbon Dioxide* 26 mmol/L (20-32); Glucose* 119 mg/dL (60-115); Total Protein* 7.9 g/dL (6.0-8.3)
[2023-02-01 20:41] LABS: Calcium* 9.8 mg/dL (8.4-10.6); Ethanol* < 0.01 % (0.01-0.03)
[2023-02-01 20:43] LABS: C Reactive Protein* 0.6 mg/dL (0.5-1.0)
[2023-02-01 21:10] LABS: SARS PCR* Negative SARS-CoV-2 (Negative)
--- NOTE | 2023-02-01 21:48 | ED.NURSE ---
nurse to nurse report given
--- NOTE | 2023-02-01 22:12 | PM.IMHP1 ---
Hospitalist- H&P: HPI History of Present Illness Date Seen: 02/01/23 Chief complaint: Bump on head, confusion Narrative: Georgiana España is a 62 year old female with chronic pain, fibromyalgia, obesity, hypertension admitted to the hospital after being found down at home by her , confused and with a bruise over her right forehead. The patient does not recall any of the events that occurred leading up to her being found down by her . reports that he was at home with her until about 3:00 p.m. today. He left the house for about an hour and returned about 4:00 p.m. at that time he found her partly laying on the bed. She seemed confused and did not recall anything that happened. She has a new bruise above her right eyebrow. Her son came home about 530. He noted that her pupils were quite small though he was looking at her outside in the sunshine. She is brought to the emergency room for evaluation. She does have occasional problems with falling at home. She does not have any history of syncope or seizure. She has no recollection of ever having a loss of consciousness episode or finding herself on the floor. She is on chronic oxycodone 10 mg q.i.d. and OxyContin 20 mg b.i.d. her controls her opioids in says he she does not have access to them. She denies taking excess. She denies any other ingestions of mood altering substances. She reports taking her medications as prescribed. In the emergency department she had evaluation including head and C-spine CT scan showing no acute injury. Vital signs have been normal other than persistent hypertension. Her mental status is back to baseline. She is adamantly demanding to go home. She reports no recent illness, shortness of breath, chest pain, abdominal pain, nausea, vomiting, diarrhea, urinary problems. No bleeding or clotting problems. She does report feeling dehydrated today but has not had any restriction on access to food and fluid. She also reports being quite fatigued recently. She reports this is been going on for months or years. I was asked to admit the patient to the hospital for ongoing neurologic monitoring. Review of Systems Narrative: Other than events above happening today there is been no other significant illness or injury. She did fall and bruise her arm a few days ago but no other recent injuries [facility] Medical History (Updated 02/01/23 @ 22:38 by Shawn Diana MD) Ataxia ?R27.0 - Ataxia, unspecified (ICD-10) Humeral fracture ?S42.309A - Unspecified fracture of shaft of humerus, unspecified arm, initial encounter for closed fracture (ICD-10) Fibromyalgia ?M79.7 - Fibromyalgia (ICD-10) Chronic back pain ?M54.9 - Dorsalgia, unspecified (ICD-10) ?G89.29 - Other chronic pain (ICD-10) Obesity ?E66.9 - Obesity, unspecified (ICD-10) Chronic, continuous use of opioids ?F11.90 - Opioid use, unspecified, uncomplicated (ICD-10) Chronic pain ?G89.29 - Other chronic pain (ICD-10) Concussion ?S06.0XAA - Concussion with loss of consciousness status unknown, initial encounter (ICD-10) Surgical History History of cholecystectomy ?Z90.49 - Acquired absence of other specified parts of digestive tract (ICD-10) History of gastric bypass ?Z98.84 - Bariatric surgery status (ICD-10) Family History (Updated 02/01/23 @ 22:32 by Shawn Diana MD) Father Heart disease Stroke Substance use disorder Mother Diabetes High blood pressure Social History (Updated 02/01/23 @ 22:33 by Shawn Diana MD) Narrative: She lives with her who is with her most the time during the day. She does not smoke. She occasionally drinks alcohol. Her and son are present with her in the emergency department today. She does not drive. Smoking Status: Never smoker Do you use any of these nicotine containing products: None Second hand tobacco smoke exposure: Yes How often do you have a drink containing alcohol: never How often do you have six or more drinks on one occasion: Never AUDIT-C Alcohol total score: 0 Non-prescribed substance use: denies use service: No Meds Home Medications and Allergies Home Medications Medication Instructions Recorded Confirmed Type chlorthalidone 25 mg tablet mg 07/05/22 History cyclobenzaprine 5 mg tablet mg 07/05/22 History duloxetine PO 07/05/22 History lisinopril 10 mg tablet mg 07/05/22 History ondansetron HCl 4 mg tablet mg 07/05/22 History oxycodone 10 mg tablet,crush mg PO 07/05/22 History resistant,extended release 12 hr (OxyContin) oxycodone 20 mg tablet,crush mg PO 07/05/22 History resistant,extended release 12 hr (OxyContin) Allergies Allergy/AdvReac Type Severity Reaction Status Date / Time hydrochlorothiazide Allergy Unknown Verified 02/01/23 18:56 gluten Allergy Uncoded 09/22/22 09:41 Exam Narrative: Exam Narrative: She is alert and oriented to her circumstances. She is observed to be having a conversation with her and son when I walk in. Her speech is fluent. She is able to give her own history except has no recall of the events around her head injury. Head is notable for bruising over her forehead and right eyebrow. There is no facial asymmetry. Pupils are equal round reactive to light and extraocular movements are full. Visual barragan are intact. There is no facial asymmetry. Oropharynx is normal except for small airway. Neck is supple without mass or adenopathy. Respirations are clear to auscultation. Cardiovascular: S1, S2, 2/6 systolic murmur heard best at the left lower sternal border. No gallop or rub. Regular rate and rhythm. Abdomen: Bowel sounds active. Abdomen is soft without tenderness or mass. Upper extremity strength testing is full and symmetric in finger extension wrist flexion extension, elbow flexion extension, shoulder flexion extension bilaterally. Cgrrmu-tipe-[id number] is fairly accurate. Lower extremity strength testing shows 5/5 strength in hip flexion, knee flexion and extension and ankle dorsiflexion and plantar flexion bilaterally. Heel-combs is fairly accurate. She has mild ataxia with both kgtdid-lyfq-eudyvb and heel-combs bilaterally. No significant edema. Intact pedal pulses. Bruise on her are arm and forehead but no other obvious bruising or trauma. Const: Vital Signs, click to edit/add: Vital Signs - 24 hr 02/01/23 18:59 02/01/23 19:18 02/01/23 19:19 Temperature 97.7 F Pulse Rate 88 87 Pulse Rate [Pulse Oximeter] 90 Respiratory Rate 18 Blood Pressure 163/93 H Blood Pressure [Ri ght Upper Arm] 139/79 Pulse Oximetry 95 100 100 Oxygen Delivery Me thod Room Air 02/01/23 19:22 02/01/23 19:26 02/01/23 19:30 Temperature Pulse Rate 87 86 Pulse Rate [Pulse Oximeter] Respiratory Rate Blood Pressure 170/99 H 158/95 H Blood Pressure [Ri ght Upper Arm] Pulse Oximetry 100 99 Oxygen Delivery Me thod 02/01/23 19:31 02/01/23 19:37 02/01/23 19:42 Temperature Pulse Rate 87 85 90 Pulse Rate [Pulse Oximeter] Respiratory Rate Blood Pressure 164/92 H 186/156 H 146/96 H Blood Pressure [Ri ght Upper Arm] Pulse Oximetry 99 97 89 Oxygen Delivery Me thod 02/01/23 19:45 02/01/23 19:57 02/01/23 20:00 Temperature Pulse Rate 88 87 87 Pulse Rate [Pulse Oximeter] Respiratory Rate Blood Pressure 141/87 H Blood Pressure [Ri ght Upper Arm] Pulse Oximetry 99 99 97 Oxygen Delivery Me thod 02/01/23 20:02 02/01/23 20:07 02/01/23 20:12 Temperature Pulse Rate 87 86 85 Pulse Rate [Pulse Oximeter] Respiratory Rate Blood Pressure 155/64 H 152/102 H 119/89 Blood Pressure [Ri ght Upper Arm] Pulse Oximetry 98 98 98 Oxygen Delivery Me thod 02/01/23 20:15 02/01/23 20:17 02/01/23 20:21 Temperature Pulse Rate 86 85 87 Pulse Rate [Pulse Oximeter] Respiratory Rate Blood Pressure 138/70 156/95 H Blood Pressure [Ri ght Upper Arm] Pulse Oximetry 97 97 97 Oxygen Delivery Me thod 02/01/23 20:27 02/01/23 20:30 02/01/23 20:31 Temperature Pulse Rate 84 85 84 Pulse Rate [Pulse Oximeter] Respiratory Rate Blood Pressure 156/87 H 154/96 H Blood Pressure [Ri ght Upper Arm] Pulse Oximetry 98 97 96 Oxygen Delivery Me thod 02/01/23 20:37 02/01/23 20:41 02/01/23 20:45 Temperature Pulse Rate 87 87 90 Pulse Rate [Pulse Oximeter] Respiratory Rate Blood Pressure 153/107 H 143/84 H Blood Pressure [Ri ght Upper Arm] Pulse Oximetry 97 98 98 Oxygen Delivery Me thod 02/01/23 20:47 02/01/23 20:52 02/01/23 20:53 Temperature Pulse Rate 89 90 89 Pulse Rate [Pulse Oximeter] Respiratory Rate Blood Pressure 130/87 136/98 H Blood Pressure [Ri ght Upper Arm] Pulse Oximetry 97 99 98 Oxygen Delivery Me thod 02/01/23 20:58 02/01/23 21:00 02/01/23 21:02 Temperature Pulse Rate 88 86 86 Pulse Rate [Pulse Oximeter] Respiratory Rate Blood Pressure 94/80 149/92 H Blood Pressure [Ri ght Upper Arm] Pulse Oximetry 98 98 98 Oxygen Delivery Me thod 02/01/23 21:08 02/01/23 21:12 02/01/23 21:15 Temperature Pulse Rate 89 87 89 Pulse Rate [Pulse Oximeter] Respiratory Rate Blood Pressure 108/87 147/85 H Blood Pressure [Ri ght Upper Arm] Pulse Oximetry 99 97 99 Oxygen Delivery Pr thod 02/01/23 21:17 02/01/23 21:22 02/01/23 21:28 Temperature Pulse Rate 88 84 84 Pulse Rate [Pulse Oximeter] Respiratory Rate Blood Pressure 143/85 H 123/95 H 145/87 H Blood Pressure [Ri ght Upper Arm] Pulse Oximetry 99 98 99 Oxygen Delivery Pr thod 02/01/23 21:30 02/01/23 21:31 02/01/23 21:37 Temperature Pulse Rate 85 85 85 Pulse Rate [Pulse Oximeter] Respiratory Rate Blood Pressure 149/86 H 149/78 H Blood Pressure [Ri ght Upper Arm] Pulse Oximetry 98 99 99 Oxygen Delivery Pr thod 02/01/23 21:42 02/01/23 21:45 02/01/23 21:47 Temperature Pulse Rate 87 88 92 Pulse Rate [Pulse Oximeter] Respiratory Rate Blood Pressure 156/85 H 163/114 H Blood Pressure [Ri ght Upper Arm] Pulse Oximetry 98 99 98 Oxygen Delivery Me thod Documenting provider has reviewed patient's vital signs: yes Hospitalist - H&P: Result Labs Labs: Short CBC 02/01/23 Range/Units 20:00 WBC 8.47 (4.50-11.00) K/uL Hgb 12.3 (12.0-16.0) gm/dL Hct 37.1 (33.0-51.0) % Plt Count 343 (140-440) K/uL BMP 02/01/23 20:00 Sodium 143 Potassium 3.3 L Chloride 106 Carbon Dioxide 26 BUN 25 Creatinine 0.9 Glucose 119 H Calcium 9.8 Liver Function 02/01/23 Range/Units 20:00 Total Bilirubin 0.8 (0.1-1.5) mg/dL AST 39 H (12-35) U/L ALT 25 (4-35) U/L Alkaline Phosphatase 88 (40-150) U/L Albumin 4.6 (3.3-5.0) g/dL Urine 02/01/23 Range/Units 19:56 Urine Color Xochitl A (Yellow) Urine Appearance Clear (Clear) Urine pH 5.5 (5.0-8.5) Ur Specific [place] >= 1.030 (1.000-1.030) Urine Protein Trace A (Negative) Urine Glucose (UA) Negative (Negative) Assessment and Plan Assessment and plan (1) Concussion: Problem comment: I think the most likely explanation for her head injury and amnesia is that she had another fall hitting her head and then having acute confusion or loss of consciousness. Other possibilities include seizure or syncope. Status: Acute (2) Amnesia: Problem comment: Amnesia likely due to concussion. Alternative explanation could be seizure with postictal status Status: Acute (3) Chronic, continuous use of opioids: Problem comment: Does not appear to be suffering from excess opioid ingestion at this time Status: Acute (4) Ataxia: Problem comment: She is mildly ataxic when I examine her today. History of recurrent falls suggests that this is a chronic problem. Cause for this is uncertain. Consider outpatient evaluation Status: Acute Plan I recommended admission for further evaluation and monitoring of the patient. She is adamant about going home. I discussed possible explanations for her probable loss of consciousness, amnesia and head injury including accidental fall with concussion, generalized seizure with postictal status, syncope. I discussed the evaluations the could be done in the hospital including cardiovascular and neurologic monitoring. After this discussion with the patient her and son they asked that she be discharged into their care at home. After discussion of risks and benefits we proceed to discharge from the emergency department rather than admission. Return to the emergency department with any evidence of loss of consciousness, seizure, recurrent injuries. Outpatient follow-up with primary care to discuss recurrent falling Total time spent today is 60 minutes, 40 minutes in coordination of care discussing with patient, family and other providers ongoing evaluation management of head injury, loss of consciousness and amnesia.
== END 2023-02-01 23:00 | disposition home or self-care (01) ==
LOC: ED 21:02 → MEDSURG 22:05 → ED 22:33
PROVIDERS: Emergency Provider Family Medicine
DX: R41.3 Other amnesia (principal); S09.90XA Unspecified injury of head, initial encounter; R41.0 Disorientation, unspecified
CPT/HCPCS: 36415; 70450; 71045; 72125; 73030; 80053; 80306; 81001; 82077; 83605; 84484; 85025; 86140; 87086; 87186; 87635; 93005; 94761; 99284; 99285; 99291; G0390

== ENCOUNTER 2023-02-04 00:44 | Inpatient (IN) | payer MEDICAID, SELFPAY ==
[2023-02-04] VITALS (14 sets, daily range): BP systolic 113–166; BP diastolic 64–121; PULSE 91–110; RESP 16–18; TEMP 36.2–36.9; O2SAT 93–100; BMI 35.9; BMI 33.7
--- NOTE | 2023-02-04 00:50 | ED.GENADULT ---
HPI - General Adult General Time Seen by Provider: 00:50 Date Seen: 02/04/23 Chief complaint: Weakness Stated complaint: Fall, confusion Time Seen by Provider: 02/04/23 00:50 Source: patient, family, RN notes reviewed and old records reviewed Mode of arrival: ambulatory Limitations: no limitations History of Present Illness HPI narrative: 62-year-old female who comes in today with weakness. Patient was seen a couple of days ago with confusion and fall although she did not remember falling at that time, did have bruising of the face and imaging and labs were done, admission was recommended but patient wanted to be discharged. She is on chronic opioid therapy for fibromyalgia, spouse controls her medications patient does have a history of overuse. Patient presents today with spouse who gives additional history, very difficult to get history from them but it sounds like since her prior emergency department visit she has had continued symptoms of confusion and some balance problems although no new falls. She has and electrical shock-like sensation through her arms and legs which is intermittent and does not seem to be related to neck or back flexion or extension, or movement. She says she does have some double vision which is been going on for a while and she has attributed to needing new glasses. Patient currently takes Cymbalta, cyclobenzaprine, lisinopril, chlorthalidone, and oxycodone. Related Data Home Medications Medication Instructions Recorded Confirmed chlorthalidone 25 mg tablet mg 07/05/22 cyclobenzaprine 5 mg tablet mg 07/05/22 duloxetine PO 07/05/22 lisinopril 10 mg tablet mg 07/05/22 oxycodone 10 mg tablet,crush mg PO 07/05/22 resistant,extended release 12 hr (OxyContin) oxycodone 20 mg tablet,crush mg PO 07/05/22 resistant,extended release 12 hr (OxyContin) omeprazole 20 mg capsule,delayed 20 mg PO DAILY 02/04/23 02/04/23 release Previous Rx's Medication Instructions Recorded cephalexin 500 mg capsule 500 mg PO TID 7 days #21 caps 07/05/22 Allergies Allergy/AdvReac Type Severity Reaction Status Date / Time hydrochlorothiazide Allergy Unknown Verified 02/04/23 03:14 gluten Allergy Uncoded 02/04/23 03:14 Review of Systems Status of ROS: Reports: 10 or more systems reviewed and unremarkable except as noted in History and below PFSH PFS Medical History (Updated 02/04/23 @ 02:53 by Zaire Albarran MD) Ataxia ?R27.0 - Ataxia, unspecified (ICD-10) Humeral fracture ?S42.309A - Unspecified fracture of shaft of humerus, unspecified arm, initial encounter for closed fracture (ICD-10) Fibromyalgia ?M79.7 - Fibromyalgia (ICD-10) Chronic back pain ?M54.9 - Dorsalgia, unspecified (ICD-10) ?G89.29 - Other chronic pain (ICD-10) Obesity ?E66.9 - Obesity, unspecified (ICD-10) Chronic, continuous use of opioids ?F11.90 - Opioid use, unspecified, uncomplicated (ICD-10) Chronic pain ?G89.29 - Other chronic pain (ICD-10) Concussion ?S06.0XAA - Concussion with loss of consciousness status unknown, initial encounter (ICD-10) Surgical History History of cholecystectomy ?Z90.49 - Acquired absence of other specified parts of digestive tract (ICD-10) History of gastric bypass ?Z98.84 - Bariatric surgery status (ICD-10) Family History (Updated 02/01/23 @ 22:32 by Shawn Diana MD) Father Heart disease Stroke Substance use disorder Mother Diabetes High blood pressure Social History (Updated 02/01/23 @ 22:33 by Shawn Diana MD) Narrative: She lives with her who is with her most the time during the day. She does not smoke. She occasionally drinks alcohol. Her and son are present with her in the emergency department today. She does not drive. Smoking Status: Never smoker Do you use any of these nicotine containing products: None Second hand tobacco smoke exposure: Yes How often do you have a drink containing alcohol: never How often do you have six or more drinks on one occasion: Never AUDIT-C Alcohol total score: 0 Non-prescribed substance use: denies use service: No Exam Narrative: Exam Narrative: General: Well-developed and well-nourished, no acute distress Head: Atraumatic and normocephalic Eyes: Pupils are equal reactive, extraocular motions intact, conjunctiva clear ENT: External nose and ears are normal, posterior pharynx without erythema or exudate Neck: No midline cervical tenderness, full spontaneous range of motion the neck, trachea midline, no adenopathy Heart: Tachycardic with 4/ 6 systolic murmur Lungs: Clear to auscultation bilaterally without wheezes or crackles Abdomen: Soft, nontender, nondistended with active bowel sounds Musculoskeletal: No tenderness, deformity, or edema Neurologic: Awake, alert, and oriented x3, no gross focal neurologic deficits, cranial nerves intact as tested. 10 beat clonus of the ankles bilaterally, mild hyper reflexia of the upper extremities but diminished in the lower extremities Psych: Mood and affect are appropriate Skin: No rashes Const: Vital Signs, click to edit/add: Vital Signs - 24 hr 02/04/23 00:52 Temperature 98.4 F Pulse Rate [Pulse Oximeter] 106 H Respiratory Rate 18 Blood Pressure [Le ft Upper Arm] 149/84 H Pulse Oximetry 100 Oxygen Delivery Me thod Room Air Course Course ED Course: Patient seen examined, prior emergency department records from February 01 reviewed when patient was seen with acute confusion, at that time had some facial bruising and head CT and neck CT were done which were negative, no focal neurologic deficits at that time. Recommendation was for admission at that time which patient declined. Patient presents today with generalized weakness. Initially little tachycardic but this is a sinus tachycardia. Afebrile and no focal complaints other than her generalized weakness, confusion, some gait disturbance. Differential diagnosis includes but not limited to dehydration, electrolyte disturbance, urinary tract infection or other infection, pneumonia, COVID, acute coronary syndrome, medication reaction. Labs ordered and IV fluids will be given. Patient presents today with ongoing confusion, ataxia, now with some intermittent shock-like pain of her upper and lower extremities. Was seen a couple days ago for similar symptoms, symptoms started a couple days ago although sounds like vision problems may be little bit longer in duration. On exam here, no cogwheel rigidity, no ocular clonus or nystagmus, no focal weakness. She does have sustained myoclonus of the lower extremities bilaterally and mild hyper reflexia the upper extremities. She does not complain any back pain or numbness in the arms or legs. Symptoms may be related to serotonin syndrome or other toxidrome, also consider acute CVA although again no focal neurologic deficits. Other neuromuscular disorder including multiple sclerosis could be considered as well. Labs and CTA head and neck ordered as patient does have a new heart murmur, plan for admission for MRI in the morning and further evaluation and treatment. Reevaluation(s) Time of Reevaluation #1: 02:51 Reevaluation #1: Labs independently interpreted by me with reassuring CBC, no leukocytosis. Basic panel with hypokalemia which is replaced intravenously and orally, magnesium is normal, hepatic panel is normal, lactate is normal, alcohol is negative, TSH, cortisol, urine drug screen, and urinalysis are pending. Patient is at CT now. Time of Reevaluation #2: 03:24 Reevaluation #2: CTA of the neck independently interpreted by me does not demonstrate any acute aortic pathology, no acute intracranial hemorrhage seen. Patient recheck, she continues to be confused. Admit for further evaluation and treatment including MRI in the morning. Time of Reevaluation #3: 03:37 Reevaluation #3: Care discussed with of the telehospitalist for admission. Vital Signs Vital signs: Initial Vital Signs Temperature 98.4 F 02/04/23 00:52 Temperature Source Temporal Artery Scan 02/04/23 00:52 Pulse Rate 106 H 02/04/23 00:52 Respiratory Rate 18 02/04/23 00:52 Blood Pressure 149/84 H 02/04/23 00:52 Blood Pressure Mean 105 02/04/23 00:52 Blood Pressure Position Supine 02/04/23 00:52 Pulse Oximetry 100 02/04/23 00:52 Oxygen Delivery Method Room Air 02/04/23 00:52 Vital Signs Temperature 98.4 F 02/04/23 00:52 Pulse Rate 106 H 02/04/23 00:52 Respiratory Rate 18 02/04/23 00:52 Blood Pressure 149/84 H 02/04/23 00:52 Pulse Oximetry 100 02/04/23 00:52 Oxygen Delivery Method Room Air 02/04/23 00:52 Temperature 98.4 F 02/04/23 00:52 Pulse Rate 106 H 02/04/23 00:52 Respiratory Rate 18 02/04/23 00:52 Blood Pressure 149/84 H 02/04/23 00:52 Pulse Oximetry 100 02/04/23 00:52 Oxygen Delivery Method Room Air 02/04/23 00:52 Medical Decision Making Medical Records Medical records reviewed: Yes I reviewed the patient's medical records Lab Data Lab results reviewed: Yes I reviewed the patient's lab results Labs: Lab Results 02/04/23 Range/Units 01:45 WBC 6.15 (4.50-11.00) K/uL RBC 4.39 (4.00-5.20) m/uL Hgb 12.6 (12.0-16.0) gm/dL Hct 37.8 (33.0-51.0) % MCV 86 (80-100) fL MCH 29 (26-34) pg MCHC 33 (32-36) gm/dL RDW Coeff of Swapnil 14.7 (11.5-15.5) % Plt Count 306 (140-440) K/uL Neut % (Auto) 50.1 (42.0-72.0) % Lymph % (Auto) 39.5 (20-44) % [place] % (Auto) 8.1 (0.0-11.0) % Eos % (Auto) 1.6 (0.0-7.0) % Baso % (Auto) 0.5 (0.0-3.0) % Neut # (Auto) 3.08 (1.7-7.0) K/uL Lymph # (Auto) 2.43 (0.90-2.90) K/uL [place] # (Auto) 0.50 (0.00-0.90) K/UL Eos # (Auto) 0.10 (0.00-0.50) K/uL Baso # (Auto) 0.03 (0.00-0.30) K/uL Abs Immat Gran (auto) 0.01 (0.00-0.30) K/uL Imm/Tot Granulo (auto) 0.2 % Diff Slide Review Acceptable Review (Acceptable) Sodium 137 (135-149) mmol/L Potassium 2.7 L* (3.6-5.1) mmol/L Chloride 101 (96-114) mmol/L Carbon Dioxide 26 (20-32) mmol/L Anion Gap 10 (7-15) mEq/L BUN 12 (7-30) mg/dL Creatinine 0.8 (0.5-1.5) mg/dL Estimated Creat Clear 80.87 Estimated GFR 84 ml/min Glucose 113 (60-115) mg/dL Lactate 1.0 (0.5-1.9) mmol/L Calcium 9.8 (8.4-10.6) mg/dL Magnesium 1.5 (1.5-2.6) mg/dL Total Bilirubin 0.5 (0.1-1.5) mg/dL Direct Bilirubin 0.1 (0.0-0.5) mg/dL AST 28 (12-35) U/L ALT 21 (4-35) U/L Alkaline Phosphatase 84 (40-150) U/L Ammonia < 9.0 L (13.1-30.0) umol/L Troponin I 0.02 (0.01-0.04) ng/mL Total Protein 7.3 (6.0-8.3) g/dL Albumin 4.2 (3.3-5.0) g/dL TSH 2.070 (0.270-4.200) uIU/mL Ethyl Alcohol < 0.01 L (0.01-0.03) % ECG Data Attestation: I personally reviewed and interpreted this ECG as follows: Prior ECG tracings: not available for review Interpretation: Performed at 12:56 a.m. demonstrates normal sinus rhythm rate 100, no acute ST elevations or depressions, normal intervals, normal axis, QTC 454, MO 168. No prior available for comparison. Discharge Plan Discharge Clinical Impression: Acute encephalopathy, Chronic, continuous use of opioids, Acute hypokalemia Patient Disposition: Admitted As Inpatient
--- NOTE | 2023-02-04 01:35 | CRLHL7_ITS ---
For Patients: As a result of the Century Cures Act, medical imaging exams and procedure reports are released immediately into your electronic medical record. You may view this report before your referring provider. If you have questions, please contact your health care provider. DATE: 02/04/2023 CLINICAL HISTORY: Patient with confusion. TECHNIQUE: Standard helical CT image acquisition through the intracranial circulation following intravenous administration of contrast material with bolus tracking. 2D and 3D MIP images for post-processing were performed and interpreted on an independent workstation and 3D images were permanently archived. COMPARISON: CT same day. FINDINGS: There is no cerebral aneurysm or large vessel occlusion. The right internal carotid artery is normal. The right middle cerebral artery and its branches are normal. The right anterior cerebral artery and its branches are normal. The left internal carotid artery is normal. The left middle cerebral artery and its branches are normal. The left anterior cerebral artery and its branches are normal. The anterior communicating artery is well visualized and appears normal. The right vertebral artery and PICA are normal. The left vertebral artery and PICA are normal. The right vertebral artery is dominant. The basilar artery is patent and appears normal. The right posterior cerebral artery is normal. The left posterior cerebral artery is normal. The visualized venous structures are patent. IMPRESSION: Normal CT angiogram of the head without intracranial aneurysm or other neurovascular abnormality. Please note that all CT scans at this facility use dose modulation, iterative reconstruction, and/or weight-based dosing when appropriate to reduce radiation dose to as low as reasonably achievable. Dictated by Channing Torres MD @ 02/04/2023 9:46:57 AM (Electronically Signed)
--- NOTE | 2023-02-04 01:35 | CRLHL7_ITS ---
For Patients: As a result of the Century Cures Act, medical imaging exams and procedure reports are released immediately into your electronic medical record. You may view this report before your referring provider. If you have questions, please contact your health care provider. DATE: 02/04/2023 CLINICAL HISTORY: Patient with confusion. TECHNIQUE: Standard helical CT image acquisition of the neck up to the skull base after bolus intravenous contrast enhancement. Multiplanar reconstructed images performed on a separate workstation. COMPARISON: None. FINDINGS: The origins of the great vessels from the aortic arch are patent. The origin of the right vertebral artery is patent. The origin of the left vertebral artery is patent. The common carotid arteries are patent. There is no stenosis at the origin of the right internal carotid artery. There is no stenosis at the origin of the left internal carotid artery. The rest of the cervical segments of the internal carotid arteries are patent up to the skull base. The right vertebral artery is dominant. The cervical segments of the vertebral arteries are patent up to the skull base. The visualized lung apices are unremarkable. The thyroid gland is unremarkable. The soft tissues of the neck are unremarkable. There are degenerative changes in the cervical spine. IMPRESSION: Normal CT angiogram of the neck. Please note that all CT scans at this facility use dose modulation, iterative reconstruction, and/or weight-based dosing when appropriate to reduce radiation dose to as low as reasonably achievable. Dictated by Channing Torres MD @ 02/04/2023 9:46:57 AM (Electronically Signed)
--- OUTSIDE RECORDS SUMMARY | 2023-02-04 01:39 | XMS_ITS | Continuity of Care Document ---
Author Name Unknown Organization [facility] Address [address] [address] [place] [address] Phone Care Team Providers [facility] Department Supervisor Name Role Phone Unavailable Unavailable Unavailable Allergies, Adverse Reactions, Alerts Substance Reaction Status Criticality hydrochlorothiazide Active No Infor mation WARNIN allergy(ies) could not be collected because the type is not supported. Please contact the source practice for further details. Medications Medication Instructions Dosage Effective Dates (start - stop) Status Comments loratadine 10 mg tablet take 1 tablet by oral route every day 10 MG - Active CHLORTHALIDONE (unknown strength) take 1 tablet by oral route every day Not Available - Active Microgestin 20 (21) 1 mg-20 mcg tablet take 1 tablet by oral route every day 1.00 tablet - Active Neurontin 100 mg capsule take 3 capsule by oral route 3 times every day 300 MG - Active omeprazole 40 mg capsule,delayed release take 1 by Oral route every day 1 - Active promethazine 25 mg tablet take 1 tablet (25MG) by oral route every 6 - 12 hours as needed 25 MG - Active Cymbalta 60 mg capsule,delayed release take 1 capsule (60MG) by oral route every day 60 MG - Active chlorthalidone 25 mg tablet take 0.5 Tablet (12.5MG) by oral route every day 12.5 MG - Active lisinopril 10 mg tablet take 1 tablet (10MG) by oral route every day 10 MG - Active Allergy Relief (cetirizine) 10 mg tablet take 1 tablet (10MG) by oral route every day 10 MG - Active MiralaxBisacodylMagCit Colon Prep Use as directed - No Longer Active PERCOCET (unknown strength) take 1 tablet by oral route every 4 hours Not Available - No Longer Active Dexilant 60 mg capsule, delayed release take 1 by Oral route every day 1 - No Longer Active Procedures Procedure Date Colonoscopy Flex; Dx (sep Pro) 14 Ugi Endo; W/bx 1/mx Level Iv-surg Path Gross/micro 14 Offic/outpt E&m Estab Low-mod 3 Offic/outpt E&m Estab Low-mod 3 Routine Serum Collection Ugi Endo; Dx W/wo Collec Specm 13 Ugi Endo; W/bx 1/mx Level Iv-surg Path Gross/micro 13 Offic/outpt E&m [place] [facility] Advance Directives Directive Yes / No Effective Date File Name No Information Encounters Encounter Description Practice Location Reason(s) For Visit Diagnoses Date Provider Providers Copied on Encounter [facility] [address] [address], [place], [id number], [place] tel:[phone] [facility] Status post gastric bypassScreeni ng colonoscopyHe morrhoidsAbdo riya PainColon Cancer ScreeningBari atric Surgery StatusHemorrh oids 4 No Information Referring Provider: Referral Self. [facility] Maurilio [facility]RON [address] [address], [place], [id number], [place] tel:[phone] [facility] Screening colonoscopyEp igastric Pain 4 No Information Referring Provider: Shelbi Adhikari, [address], [place], [address]. tel:[phone] [facility] [address] [address], [place], [id number], [place] tel:[phone] [facility] No Information Oct- 3- 4 No Information [facility], [address] [address], [place], [id number], [place] tel:[phone] [facility] No Information Feb- 2- 3 No Information Offic/outpt E&m Estab Low-mod [facility], [address] [address], [place], [id number], [place] tel:[phone] [facility] Nausea & vomiting (chief complaint) Epigastric PainEpigastri c PainNausea With Vomiting 5 3 No Information Referring Provider: Referral Self. [facility], [address] [address], [place], [id number], [place] tel:[phone] [facility] Epigastric Pain Sep-3 0- 3 No Information Referring Provider: Shelbi Adhikari, [address], [place], [address]. tel:[phone] Offic/outpt E&m Estab Low-mod [facility], [address] [address], [place], [id number], [place] tel:[phone] [facility] Abdominal pain (chief complaint) Epigastric PainEpigastri c Pain Sep-2 3 No Information Referring Provider: Referral Self. [facility], [address] [address], [place], [id number], [place] tel:[phone] [facility] Post-op Aftercare NecGastric/an tral Ulcer UnspecBariatr ic Surgery Status Dec-0 3 No Information Referring Provider: Shelbi Adhikari, [address] [place], [address]. tel:[phone] [facility], [address] [address], [place], [id number], [place] tel:[phone] [facility] Post-op Aftercare NecGastric/an tral Ulcer UnspecGastrod uodenal Dis NosBariatric Surgery StatusGastric /antral Ulcer UnspecBariatr ic Surgery StatusGastrod uodenal Dis Nos 3 No Information Referring Provider: Shelbi Adhikari, [address] [place], [address]. tel:[phone] Offic/outpt E&m [facility] [place] [facility] [address] [address], [place], [place], [id number], tel:[phone] [facility] Abdominal pain (chief complaint) Epigastric Pain 3 No Information Referring Provider: Shelbi Adhikari, [address] [place], [address]. tel:[phone] Family History Family Member Type Diagnosis Age At Onset First degree family history Problem (finding) No history of Ulcerative Colitis First degree family history Problem (finding) No history of Crohn's First degree family history Problem (finding) malignant neoplasm of skin First degree family history Problem (finding) Colon Polyps First degree family history Problem (finding) alcoholism First degree family history Problem (finding) Cholelithasis First degree family history Problem (finding) No history of Cancer, colon Payers Payer name Insurance type Covered libertarian ID Authoriza 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 [facility] CI [id number] Social History Type Description Quantity Date Captured Comments Alcohol Use Details Unknown Caffeine Use Details Unknown Tobacco Use Status No Information Smoking Status No Information Sex Female Chief Complaint And Reason For Visit No Information Reason For Referral Reason For Referral No Information History Of Present Illness Encounter Date Complaint History Of Prese nt Illness No Information Functional Status Date Functional Assessmen t No Information Instructions Date Instruction Additional Infor mation Colon Cancer Prevention Related to Screening colonoscopy Hemorrhoids Related to Scree minoo colonoscopy Assessments Type Assessment Date assessment Status post gastric bypass assessment Screening colonoscopy 4 assessment Hemorrhoids Patient Care Teams Name Effective Dates (start - stop) Status Members No Information
--- OUTSIDE RECORDS SUMMARY | 2023-02-04 01:39 | XMS_ITS | Continuity of Care Document ---
Author Name Unknown Organization [facility] Address [address] [place] [address] Phone Care Team Providers Care Punch Box Tender Name Role Phone Analy Padron CNP Unavailable Unavailable Allergies, Adverse Reactions, Alerts Substance Reaction Status Criticality gluten Vomiting Active No Information hydrochlorothiazide cramps Active No Infor mation venom-honey bee respiratory issues Active No Inf ormation CAT HAIR STANDARDIZED ALLERG ENIC EXTRACT HivesHivesHivesTongue swelling Active No Inform ation wheat vomit, cramps Active No Information Medications Medication Instructions Dosage Effective Dates (start - stop) Status Comments OxyContin 20 mg tablet,crush resistant,extended release take 1 tablet by ORAL route every 12 hours for chronic pain for Chronic Pain - Active may fill 8-27 to start on 9-1 oxycodone 5 mg tablet take 1 - 2 tablet by ORAL route every 4 - 6 hours as needed for pain, max 8/day for Chronic Pain - Active cyclobenzaprine 5 mg tablet TAKE ONE TO TWO TABLETS BY MOUTH Q8 hours prn - Active duloxetine 60 mg capsule,delayed release take 1 capsule by ORAL route every day 60 MG - Active CEPHALEXIN (unknown strength) take 1 tablet by oral route every evening Not Available - Active omeprazole 40 mg capsule,delayed release take 2 capsule by oral route every day 80 MG - Active chlorthalidone 25 mg tablet take 0.5 tablet by oral route every day 12.5 MG - Active lisinopril 10 mg tablet take 1 tablet by oral route every day 10 MG - Active Procedures Procedure Date OFFICE VISIT, EST TELEMEDICINE OFFICE/OUTPATIENT VISIT, EST Foll-up eval q3mo opiod tx OFFICE VISIT, EST TELEMEDICINE 23 Foll-up eval q3mo opiod tx OFFICE VISIT, EST TELEMEDICINE Foll-up eval q3mo opiod tx OFFICE/OUTPATIENT VISIT, EST Drug Urine Toxology With Chromatography Drug test def 8-14 classes Foll-up eval q3mo opiod tx OFFICE VISIT, EST TELEMEDICINE Foll-up eval q3mo opiod tx OFFICE VISIT, EST TELEMEDICINE Foll-up eval q3mo opiod tx OFFICE VISIT, EST TELEMEDICINE Foll-up eval q3mo opiod tx OFFICE/OUTPATIENT VISIT, EST Foll-up eval q3mo opiod tx OFFICE VISIT, EST TELEMEDICINE Foll-up eval q3mo opiod tx OFFICE VISIT, EST TELEMEDICINE Foll-up eval q3mo opiod tx OFFICE VISIT, EST TELEMEDICINE Foll-up eval q3mo opiod tx OFFICE/OUTPATIENT VISIT, EST Foll-up eval q3mo opiod tx OFFICE VISIT, EST TELEMEDICINE Foll-up eval q3mo opiod tx OFFICE VISIT, EST TELEMEDICINE ROUTINE BLOOD DRAW Drug Urine Toxology With Chromatography Drug test def 8-14 classes Foll-up eval q3mo opiod tx OFFICE VISIT, EST TELEMEDICINE 21 Foll-up eval q3mo opiod tx OFFICE VISIT, EST TELEMEDICINE Foll-up eval q3mo opiod tx OFFICE VISIT, EST TELEMEDICINE Foll-up eval q3mo opiod tx OFFICE VISIT, EST TELEMEDICINE Foll-up eval q3mo opiod tx OFFICE VISIT, EST TELEMEDICINE OFFICE VISIT, EST TELEMEDICINE Foll-up eval q3mo opiod tx Drug test def 22+ classes Drug Urine Toxology Foll-up eval q3mo opiod tx OFFICE VISIT, EST TELEMEDICINE Foll-up eval q3mo opiod tx OFFICE VISIT, EST TELEMEDICINE Foll-up eval q3mo opiod tx OFFICE VISIT, EST TELEMEDICINE OFFICE VISIT, EST TELEMEDICINE Foll-up eval q3mo opiod tx Foll-up eval q3mo opiod tx OFFICE VISIT, EST TELEMEDICINE OFFICE/OUTPATIENT VISIT, EST Foll-up eval q3mo opiod tx Drug test def 22+ classes Drug Urine Toxology With Chromatography Foll-up eval q3mo opiod tx OFFICE/OUTPATIENT VISIT, EST OFFICE/OUTPATIENT VISIT, EST Foll-up eval q3mo opiod tx Foll-up eval q3mo opiod tx OFFICE/OUTPATIENT VISIT, EST OFFICE/OUTPATIENT VISIT, EST OFFICE/OUTPATIENT VISIT, EST OFFICE/OUTPATIENT VISIT, EST OFFICE/OUTPATIENT VISIT, EST OFFICE/OUTPATIENT VISIT, EST OFFICE/OUTPATIENT VISIT, EST OFFICE/OUTPATIENT VISIT, EST OFFICE/OUTPATIENT VISIT, EST OFFICE/OUTPATIENT VISIT, EST Drug test def 22+ classes Drug Urine Toxology With Chromatography OFFICE/OUTPATIENT VISIT, EST OFFICE/OUTPATIENT VISIT, EST OFFICE/OUTPATIENT VISIT, EST OFFICE/OUTPATIENT VISIT, EST OFFICE/OUTPATIENT VISIT, EST OFFICE/OUTPATIENT VISIT, EST OFFICE/OUTPATIENT VISIT, EST OFFICE/OUTPATIENT VISIT, EST OFFICE/OUTPATIENT VISIT, EST OFFICE/OUTPATIENT VISIT, EST OFFICE/OUTPATIENT VISIT, EST OFFICE/OUTPATIENT VISIT, EST OFFICE/OUTPATIENT VISIT, EST OFFICE/OUTPATIENT VISIT, EST OFFICE/OUTPATIENT VISIT, EST OFFICE/OUTPATIENT VISIT, EST OFFICE/OUTPATIENT VISIT, EST OFFICE/OUTPATIENT VISIT, EST OFFICE/OUTPATIENT VISIT, EST OFFICE/OUTPATIENT VISIT, EST Surgical trays FLUOROGUIDE FOR SPINE INJECT BILATERAL INJECT SACROILIAC JOINT Lidocaine injection Betamethasone acet&sod phosp Omnipaque 240 50ml Omnipaque 240 Per 50ml OFFICE/OUTPATIENT VISIT, EST OFFICE/OUTPATIENT VISIT, EST OFFICE/OUTPATIENT VISIT, EST OFFICE/OUTPATIENT VISIT, EST OFFICE/OUTPATIENT VISIT, EST OFFICE/OUTPATIENT VISIT, EST BILATERAL INJECT SACROILIAC JOINT Surgical trays FLUOROGUIDE FOR SPINE INJECT Lidocaine injection Betamethasone acet&sod phosp Omnipaque 240 50ml Omnipaque 240 Per 50ml OFFICE/OUTPATIENT VISIT, EST INJECT SPINE L/S (CD) Surgical trays FLUOROGUIDE FOR SPINE INJECT Lidocaine injection Betamethasone acet&sod phosp Omnipaque 240 50ml Omnipaque 240 Per 50ml OFFICE/OUTPATIENT VISIT, EST OFFICE/OUTPATIENT VISIT, EST OFFICE/OUTPATIENT VISIT, EST Surgical trays FLUOROGUIDE FOR SPINE INJECT Fentanyl citrate injeciton Inj midazolam hydrochloride Lidocaine injection Betamethasone acet&sod phosp Omnipaque 240 50ml Omnipaque 240 Per 50ml MOD CS BY SAME PHYS, 5 YRS + BILATERAL INJECT SACROILIAC JOINT OFFICE/OUTPATIENT VISIT, EST OFFICE/OUTPATIENT VISIT, EST OFFICE/OUTPATIENT VISIT, NEW Advance Directives Directive Yes / No Effective Date File Name No Information Encounters Encounter Description Practice Location Reason(s) For Visit Diagnoses Date Provider Providers Copied on Encounter [facility], [address] [place] [address], [id number] , [place] tel:[phone] [facility] [place] No Information 3 Nereida Beckford. [address] [place] [address], [id number], [place]. tel:[phone] [facility], [address] [place] [address], [id number] , [place] tel:[phone] [facility] [place] No Information 3 Nereida Beckford. [address] [place], [place], [id number], [place]. [phone] OFFICE VISIT, EST TELEMEDICINE [facility], [address] [place] [address], [id number] , [place] [phone] [facility] [place] Widespread pain (chief complaint) InsomniaOther intervertebra l disc degeneration, lumbosacral regionOther muscle spasmFibromya lgiaLong term (current) use of opiate analgesic 3 Nereida Beckford. [address] [place] [address], [id number], [place]. tel:[phone] Referring Provider: Carson Vega, [address] [place], [place] [address], [address] . tel:[phone] [facility], [address] [place] [address], [id number] , [place] [phone] [facility] [place] No Information 3 Dario Byrd. [address] [place] [address], [id number], [place]. tel:[phone] OFFICE/OUTPAT IENT VISIT, [facility], [address] [place] [address], [id number] , [place] tel:[phone] [facility] Widespread pain (chief complaint) InsomniaOther intervertebra l disc degeneration, lumbosacral regionOther muscle spasmFibromya lgiaLong term (current) use of opiate analgesicEnco unter for therapeutic drug level monitoring 3 Nereida Beckford. [address] [place] [address], [id number], [place]. tel:[phone] Referring Provider: Carson Vega, [address] [place], [place] [address], [address] . tel:[phone] OFFICE VISIT, EST TELEMEDICINE [facility], [address] [place] [address], [id number] , [place] tel:[phone] [facility] Fibromyalgia (chief complaint) InsomniaOther intervertebra l disc degeneration, lumbosacral regionOther muscle spasmFibromya lgiaLong term (current) use of opiate analgesic Jul- 3 Krenzer Analy. [address] [place] [address], [id number], [place]. tel:[phone] OFFICE VISIT, EST TELEMEDICINE [facility], [address] [place] [address], [id number] , [place] tel:[phone] [facility] [place] Fibromyalgia (chief complaint) InsomniaOther intervertebra l disc degeneration, lumbosacral regionOther muscle spasmFibromya lgiaLong term (current) use of opiate analgesic 3 Krenzer Analy. [address] [place] [address], [id number], [place]. tel:[phone] OFFICE/OUTPAT IENT VISIT, EST [facility], [address] [place] [address], [id number] , [place] tel:[phone] [facility] Fibromyalgia (chief complaint) InsomniaOther intervertebra l disc degeneration, lumbosacral regionOther muscle spasmFibromya lgiaLong term (current) use of opiate analgesicEnco unter for therapeutic drug level monitoring 2 Krenzer Analy. [address] [place] [address], [id number], [place]. tel:[phone] Referring Provider: Carson Vega, [address] [place], [place] [address], [address] . tel:[phone] [facility], [address] [place] [address], [id number] , [place] tel:[phone] [facility] No Information 2 Krenzer Analy. [address] [place] [address], [id number], [place]. tel:[phone] OFFICE VISIT, [facility] TELEMEDICINE [facility], [address] [place] [address], [id number] , [place] tel:[phone] [facility] Fibromyalgia (chief complaint) InsomniaOther intervertebra l disc degeneration, lumbosacral regionOther muscle spasmFibromya lgiaLong term (current) use of opiate analgesic Jan-2 2 Krenzer Analy. [address] [place] [address], [id number], [place]. tel:[phone] OFFICE VISIT, EST TELEMEDICINE [facility], [address] [place] [address], [id number] , [place] tel:[phone] [facility] Fibromyalgia (chief complaint) InsomniaOther intervertebra l disc degeneration, lumbosacral regionOther muscle spasmFibromya lgiaLong term (current) use of opiate analgesic Sep-0 2 Krenzer Analy. [address] [place] [address], [id number], [place]. tel:[phone] OFFICE VISIT, [facility], [address] [place] [address], [id number] , [place] tel:[phone] [facility] [place] Fibromyalgia (chief complaint) InsomniaOther intervertebra l disc degeneration, lumbosacral regionOther muscle spasmFibromya lgiaLong term (current) use of opiate analgesic 2 Nereida Analy. [address] [place] [address], [id number], [place]. tel:[phone] Referring Provider: Carson Vega, [address] [place], [place] [address], [address] . tel:[phone] OFFICE/OUTPAT IENT VISIT, [facility], [address] [place] [address], [id number] , [place] tel:[phone] [facility] [place] Fibromyalgia (chief complaint) InsomniaOther intervertebra l disc degeneration, lumbosacral regionOther muscle spasmFibromya lgiaLong term (current) use of opiate analgesicEnco unter for screening for other disorder 2 Nereida Analy. [address] [place] [address], [id number], [place]. tel:[phone] Referring Provider: Carson Vega, [address] [place], [place] [address], [address] . tel:[phone] OFFICE VISIT, [facility], [address] [place] [address], [id number] , [place] tel:[phone] [facility] Fibromyalgia (chief complaint) InsomniaOther intervertebra l disc degeneration, lumbosacral regionOther muscle spasmFibromya lgiaLong term (current) use of opiate analgesic 2 Radhazer Analy. [address] [place] [address], [id number], [place]. tel:[phone] OFFICE VISIT, [facility], [address] [place] [address], [id number] , [place] tel:[phone] [facility] Fibromyalgia (chief complaint) InsomniaLong term (current) use of opiate analgesicOthe r muscle spasmFibromya lgiaOther intervertebra l disc degeneration, lumbosacral region Mar-0 2 Nereida Analy. [address] [place] [address], [id number], [place]. tel:[phone] OFFICE VISIT, [facility], [address] [place] [address], [id number] , [place] [phone] [facility] Fibromyalgia (chief complaint) FibromyalgiaO ther intervertebra l disc degeneration, lumbosacral regionInsomni aLong term (current) use of opiate analgesicOthe r muscle spasm Jas-0 2 Nereida Analy. [address] [place] [address], [id number], [place]. tel:[phone] OFFICE/OUTPAT IENT VISIT, [facility], [address] [place] [address], [id number] , [place] [phone] [facility] Fibromyalgia (chief complaint) FibromyalgiaO ther intervertebra l disc degeneration, lumbosacral regionInsomni aLong term (current) use of opiate analgesicOthe r muscle spasm Nov-0 1 Nereida Analy. [address] [place] [address], [id number], [place]. tel:[phone] Referring Provider: Carson Vega, [address] [place] [address], [id number] . tel:[phone] OFFICE VISIT, [facility], [address] [place] [address], [id number] , [place] [phone] [facility] Fibromyalgia (chief complaint) FibromyalgiaO ther intervertebra l disc degeneration, lumbosacral regionInsomni aLong term (current) use of opiate analgesic Sep-0 1 Radhazer Analy. [address] [place] [address], [id number], [place]. tel:[phone] OFFICE VISIT, [facility], [address] [place] [address], [id number] , [place] [phone] [facility] Fibromyalgia (chief complaint) FibromyalgiaO ther intervertebra l disc degeneration, lumbosacral regionInsomni aLong term (current) use of opiate analgesic 1 Nereida Espinoza [address] [place] [address], [id number], [place]. tel:[phone] Referring Provider: Carson Vega, [address] [place], [place] [address], [address] . tel:[phone] [facility], [address] [place] [address], [id number] , [place] [phone] [facility] [place] No Information 1 Nereida Espinoza [address] [place] [address], [id number], [place]. tel:[phone] Referring Provider: Carson Vega, [address] [place], [place] [address], [address] . tel:[phone] OFFICE VISIT, EST TELEMEDICINE [facility], [address] [place] [address], [id number] , [place] tel:[phone] [facility] Fibromyalgia (chief complaint) FibromyalgiaO ther intervertebra l disc degeneration, lumbosacral regionInsomni aLong term (current) use of opiate analgesic 1 Nereida Espinoza [address] [place] [address], [id number], [place]. tel:[phone] Referring Provider: Carson Vega, [address] [place], [place] [address], [address] . tel:[phone] OFFICE VISIT, EST TELEMEDICINE [facility], [address] [place] [address], [id number] , [place] tel:[phone] [facility] [place] Fibromyalgia (chief complaint) FibromyalgiaO ther intervertebra l disc degeneration, lumbosacral regionInsomni aLong term (current) use of opiate analgesic 1 Nereida Espinoza [address] [place] [address], [id number], [place]. tel:[phone] OFFICE VISIT, [facility], [address] [place] [address], [id number] , [place] tel:[phone] [facility] Fibromyalgia (chief complaint) FibromyalgiaO ther intervertebra l disc degeneration, lumbosacral regionInsomni aLong term (current) use of opiate analgesic 1 Krenzer Analy. [address] [place] [address], [id number], [place]. tel:[phone] Referring Provider: Carson Vega, [address] [place] [address] [place], [address] . tel:[phone] OFFICE VISIT, [facility], [address] [place] [address], [id number] , [place] tel:[phone] [facility] Fibromyalgia (chief complaint) FibromyalgiaO ther intervertebra l disc degeneration, lumbosacral regionInsomni aLong term (current) use of opiate analgesic 0 Nereida Analy. [address] [place] [address], [id number], [place]. tel:[phone] Referring Provider: Carson Vega, [address] [place] [address] [place], [address] . tel:[phone] OFFICE VISIT, [facility], [address] [place] [address], [id number] , [place] [phone] [facility] Fibromyalgia (chief complaint) FibromyalgiaO ther intervertebra l disc degeneration, lumbosacral regionInsomni aLong term (current) use of opiate analgesic 0 Warren Kaur. [address] [place] [address], [id number], [place]. tel:[phone] OFFICE VISIT, [facility], [address] [place] [address], [id number] , [place] tel:[phone] [facility] Fibromyalgia (chief complaint) FibromyalgiaO ther intervertebra l disc degeneration, lumbosacral regionInsomni aLong term (current) use of opiate analgesic 0 Lelandnzer Analy. [address] [place] [address], [id number], [place]. tel:[phone] OFFICE VISIT, [facility], [address] [place] [address], [id number] , [place] [phone] [facility] Fibromyalgia (chief complaint) FibromyalgiaO ther intervertebra l disc degeneration, lumbosacral regionInsomni aLong term (current) use of opiate analgesic 0 Lelandnzer Analy. [address] [place] [address], [id number], [place]. tel:[phone] Referring Provider: Carson Vega, [address] [place], [place] [address], [address] . tel:[phone] OFFICE VISIT, [facility], [address] [place] [address], [id number] , [place] [phone] [facility] Fibromyalgia (chief complaint) FibromyalgiaO ther intervertebra l disc degeneration, lumbosacral regionInsomni aLong term (current) use of opiate analgesic 0 Nereida Analy. [address] [place] [address], [id number], [place]. tel:[phone] Referring Provider: Carson Vega, [address] [place], [place] [address], [address] . tel:[phone] OFFICE VISIT, [facility], [address] [place] [address], [id number] , [place] [phone] [facility] Fibromyalgia (chief complaint) FibromyalgiaL arsenio term (current) use of opiate analgesicOthe r intervertebra l disc degeneration, lumbosacral regionInsomni a 0 Lelandnzer Analy. [address] [place] [address], [id number], [place]. tel:[phone] OFFICE VISIT, [facility], [address] [place] [address], [id number] , [place] [phone] [facility] [place] Fibromyalgia (chief complaint) FibromyalgiaO ther intervertebra l disc degeneration, lumbosacral regionLong term (current) use of opiate analgesicInso mnia Aug- 0 Nereida Analy. [address] [place], [place], [id number], [place]. tel:[phone] OFFICE VISIT, [facility] TELEMEDICINE [facility], [address] [place], [place], [id number] , [place] tel:[phone] [facility] Fibromyalgia (chief complaint) FibromyalgiaO ther intervertebra l disc degeneration, lumbosacral regionLong term (current) use of opiate analgesic 0 Lelandnzer Analy. [address] [place], [place], [id number], [place]. tel:[phone] Referring Provider: Carson Vega, [address] [place], [place] [address], [address] . tel:[phone] OFFICE/OUTPAT IENT VISIT, [facility], [address] [place] [address], [id number] , [place] tel:[phone] [facility] Fibromyalgia (chief complaint) Other intervertebra l disc degeneration, lumbosacral regionFibromy algiaLong term (current) use of opiate analgesic 0 Nereida Analy. [address] [place], [place], [id number], [place]. tel:[phone] Referring Provider: Carson Vega, [address] [place], [place] [address], [address] . tel:[phone] OFFICE/OUTPAT IENT VISIT, [facility], [address] [place] [address], [id number] , [place] tel:[phone] [facility] Fibromyalgia (chief complaint) Other intervertebra l disc degeneration, lumbosacral regionFibromy algiaLong term (current) use of opiate analgesicEnco unter for therapeutic drug level monitoring 6-201 9 Perla Brito. [address] [place], [place], [id number], [place]. tel:[phone] Referring Provider: Carson Vega, [address] [place], [place] [address], [address] . tel:[phone] OFFICE/OUTPAT IENT VISIT, [facility], [address] [place] [address], [id number] , [place] [phone] [facility] Fibromyalgia (chief complaint) FibromyalgiaO ther intervertebra l disc degeneration, lumbosacral regionSacroil iitis, not elsewhere classifiedLon g term (current) use of opiate analgesic Mar-2 9 Krenzer Analy. [address] [place] [address], [id number], [place]. tel:[phone] Referring Provider: Carson Veag, [address] [place], [place] [address], [address] . tel:[phone] OFFICE/OUTPAT IENT VISIT, [facility], [address] [place] [address], [id number] , [place] [phone] [facility] Fibromyalgia (chief complaint) FibromyalgiaO ther intervertebra l disc degeneration, lumbosacral regionSacroil iitis, not elsewhere classifiedLon g term (current) use of opiate analgesic 3 9 Krenzer Analy. [address] [place] [address], [id number], [place]. tel:[phone] Referring Provider: Carson Vega, [address] [place], [place] [address], [address] . tel:[phone] OFFICE/OUTPAT IENT VISIT, [facility], [address] [place] [address], [id number] , [place] [phone] [facility] Fibromyalgia (chief complaint) punch box tender (current) use of opiate analgesicFibr omyalgiaSacro iliitis, not elsewhere classifiedOth er intervertebra l disc degeneration, lumbosacral regionOther muscle spasm Feb-0 9 Krenzer Analy. [address] [place] [address], [id number], [place]. tel:[phone] Referring Provider: Carson Vega, [address] [place], [place] [address], [address] . tel:[phone] OFFICE/OUTPAT IENT VISIT, [facility], [address] [place] [address], [id number] , [place] [phone] [facility], [facility] Fibromyalgia (chief complaint) FibromyalgiaS acroiliitis, not elsewhere classifiedOth er intervertebra l disc degeneration, lumbosacral regionLong term (current) use of opiate analgesic 9 Nereida Analy. [address] [place] [address], [id number], [place]. tel:[phone] Referring Provider: Carson Vega, [address] [place] [address] [place], [address] . tel:[phone] OFFICE/OUTPAT IENT VISIT, [facility], [address] [place] [address], [id number] , [place] [phone] [facility] Fibromyalgia (chief complaint) FibromyalgiaS acroiliitis, not elsewhere classifiedOth er intervertebra l disc degeneration, lumbosacral regionLong term (current) use of opiate analgesic Lelandnzer Analy. [address] [place] [address], [id number], [place]. tel:[phone] Referring Provider: Carson Vega, [address] [place] [address] [place], [address] . tel:[phone] OFFICE/OUTPAT IENT VISIT, [facility], [address] [place] [address], [id number] , [place] [phone] [facility], [facility] Fibromyalgia (chief complaint) Sacroiliitis, not elsewhere classifiedOth er intervertebra l disc degeneration, lumbosacral regionFibromy algiaLong term (current) use of opiate analgesic America Patel. [id number] [place] [address] [address], [place], [place], [id number], [place]. tel:[phone] Referring Provider: Carson Vega, [address] [place] [address], [address] . tel:[phone] OFFICE/OUTPAT IENT VISIT, [facility], [address] [place] [address], [id number] , [place] [phone] [facility] Fibromyalgia (chief complaint) FibromyalgiaS acroiliitis, not elsewhere classifiedOth er intervertebra l disc degeneration, lumbosacral regionLong term (current) use of opiate analgesicEnco unter for therapeutic drug level monitoring 9 Nereida Beckford. [address] [place] [address], [id number], [place]. tel:[phone] Referring Provider: Carson Vega, [address] [place] [address], [address] . tel:[phone] OFFICE/OUTPAT IENT VISIT, [facility], [address] [place] [address], [id number] , [place] [phone] [facility] Fibromyalgia (chief complaint) FibromyalgiaS acroiliitis, not elsewhere classifiedOth er intervertebra l disc degeneration, lumbosacral regionLong term (current) use of opiate analgesic 9 Nereida Beckford. [address] [place] [address], [id number], [place]. tel:[phone] Referring Provider: Carson Vega, [address] [place] [address] [place], [address] . tel:[phone] OFFICE/OUTPAT IENT VISIT, [facility], [address] [place] [address], [id number] , [place] [phone] [facility] Fibromyalgia (chief complaint) FibromyalgiaS acroiliitis, not elsewhere classifiedPai n in right shoulderOther intervertebra l disc degeneration, lumbosacral regionLong term (current) use of opiate analgesic Fe 9 Nereida Beckford. [address] [place] [address], [id number], [place]. tel:[phone] Referring Provider: Carson Vega, [address] [place], [place] [address], [address] . tel:[phone] OFFICE/OUTPAT IENT VISIT, [facility], [address] [place] [address], [id number] , [place] [phone] [facility] Fibromyalgia (chief complaint) FibromyalgiaS acroiliitis, not elsewhere classifiedPai n in right shoulderOther intervertebra l disc degeneration, lumbosacral region 8 Nereida Beckford. [address] [place] [address], [id number], [place]. tel:[phone] Referring Provider: Carson Vega, [address] [place] [address] [place], [address] . tel:[phone] OFFICE/OUTPAT IENT VISIT, [facility], [address] [place] [address], [id number] , [place] [phone] [facility] fibromyalgia (chief complaint) FibromyalgiaS acroiliitis, not elsewhere classifiedPai n in right shoulderOther intervertebra l disc degeneration, lumbosacral regionLong term (current) use of opiate analgesic 8 Nereida Beckford. [address] [place] [address], [id number], [place]. tel:[phone] Referring Provider: Carson Vega, [address] [place] [address] [place], [address] . tel:[phone] OFFICE/OUTPAT IENT VISIT, [facility], [address] [place] [address], [id number] , [place] [phone] [facility] Back Pain (chief complaint) FibromyalgiaS acroiliitis, not elsewhere classifiedPai n in right shoulderOther intervertebra l disc degeneration, lumbosacral region 8 Ni Aguirre. [address] [place] [address] [address], [place], [place], [id number], [place]. tel:[phone] Referring Provider: Carson Vega, [facility] [place], [address] . tel:[phone] OFFICE/OUTPAT IENT VISIT, [facility], [address] [place] [address], [id number] , [place] tel:[phone] [facility] fibromyalgia (chief complaint) FibromyalgiaO ther intervertebra l disc degeneration, lumbosacral region Lee- 8 Krenzer Analy. [address] [place] [address], [id number], [place]. tel:[phone] Referring Provider: Carson Vega, [address] [place], [place] [address], [address] . tel:[phone] OFFICE/OUTPAT IENT VISIT, [facility], [address] [place] [address], [id number] , [place] tel:[phone] [facility] fibromyalgia (chief complaint) FibromyalgiaO ther intervertebra l disc degeneration, lumbosacral region 8 Krenzer Analy. [address] [place] [address], [id number], [place]. tel:[phone] Referring Provider: Carson Vega, [address] [place] [address], [place], [address] . tel:[phone] OFFICE/OUTPAT IENT VISIT, [facility], [address] [place] [address], [id number] , [place] tel:[phone] [facility] fibromyalgia (chief complaint) FibromyalgiaO ther intervertebra l disc degeneration, lumbosacral region 8 Krenzer Analy. [address] [place] [address], [id number], [place]. tel:[phone] Referring Provider: Carson Vega, [address] [place], [place] [address], [address] . tel:[phone] OFFICE/OUTPAT IENT VISIT, [facility], [address] [place] [address], [id number] , [place] tel:[phone] [facility] fibromyalgia (chief complaint) FibromyalgiaO ther intervertebra l disc degeneration, lumbosacral region Dec-2 7 Krenzer Analy. [address] [place], [place], [id number], [place]. tel:[phone] Referring Provider: Carson Vega, [address] [place], [place] [address], [address] . tel:[phone] OFFICE/OUTPAT IENT VISIT, [facility], [address] [place] [address], [id number] , [place] tel:[phone] [facility], [facility] fibromyalgia (chief complaint) FibromyalgiaO ther intervertebra l disc degeneration, lumbosacral region Mar-0 7 Krenzer Analy. [address] [place], [place], [id number], [place]. tel:[phone] Referring Provider: Carson Vega, [address] [place], [place] [address], [address] . tel:[phone] OFFICE/OUTPAT IENT VISIT, [facility], [address] [place] [address], [id number] , [place] tel:[phone] [facility] fibromyalgia (chief complaint) Other intervertebra l disc degeneration, lumbosacral regionFibromy algia Sep-2 7 Krenzer Analy. [address] [place], [place], [id number], [place]. tel:[phone] Referring Provider: Carson Vega, [address] [place], [place] [address], [address] . tel:[phone] OFFICE/OUTPAT IENT VISIT, [facility], [address] [place] [address], [id number] , [place] [phone] [facility] fibromyalgia (chief complaint) Other intervertebra l disc degeneration, lumbosacral regionFibromy algia Nov-2 7 Krenzer Analy. [address] [place], [place], [id number], [place]. tel:[phone] Referring Provider: Edgardo Erwin[address] [place], [address] . tel:[phone] OFFICE/OUTPAT IENT VISIT, [facility], [address] [place] [address], [id number] , [place] tel:[phone] [facility], [facility] fibromyalgia (chief complaint) Other intervertebra l disc degeneration, lumbosacral regionFibromy algiaLong term (current) use of opiate analgesic Lee-0 5- 7 Radhazer Analy. [address] [place] [address], [id number], [place]. tel:[phone] Referring Provider: Carson Vega, [address] [place] [address] [place], [address] . tel:[phone] OFFICE/OUTPAT IENT VISIT, [facility], [address] [place] [address], [id number] , [place] tel:[phone] [facility], [facility] Fibromyalgia (chief complaint) Other intervertebra l disc degeneration, lumbosacral regionFibromy algiaLong term (current) use of opiate analgesic Apr-0 7 Lelandnzer Analy. [address] [place] [address], [id number], [place]. tel:[phone] Referring Provider: Carson Vega, [address] [place], [place] [address], [address] . tel:[phone] OFFICE/OUTPAT IENT VISIT, [facility], [address] [place] [address], [id number] , [place] [phone] [facility], [facility] fibromyalgia (chief complaint) FibromyalgiaO ther intervertebra l disc degeneration, lumbosacral regionLong term (current) use of opiate analgesic May-3 7 Lelandnzer Analy. [address] [place] [address], [id number], [place]. tel:[phone] Referring Provider: Carson Vega, [address] [place] [address] [place], [address] . tel:[phone] OFFICE/OUTPAT IENT VISIT, [facility], [address] [place] [address], [id number] , [place] [phone] [facility], [facility] fibromyalgia (chief complaint) FibromyalgiaL arsenio term (current) use of opiate analgesic Dec-0 6-201 6 Krenzer Analy. [address] [place] [address], [id number], [place]. tel:[phone] Referring Provider: Carson Vega, [address] [place], [place] [address], [address] . tel:[phone] OFFICE/OUTPAT IENT VISIT, [facility], [address] [place] [address], [id number] , [place] [phone] [facility] fibromyalgia (chief complaint) FibromyalgiaL arsenio term (current) use of opiate analgesic Oct-0 3-201 6 Krenzer Analy. [address] [place] [address], [id number], [place]. tel:[phone] Referring Provider: Carson Vega, [address] [place], [place] [address], [address] . tel:[phone] OFFICE/OUTPAT IENT VISIT, [facility], [address] [place] [address], [id number] , [place] [phone] [facility], [facility] fibromyalgia (chief complaint) FibromyalgiaO ther intervertebra l disc degeneration, lumbosacral region Aug-1 0-201 6 Krenzer Analy. [address] [place] [address], [id number], [place]. tel:[phone] Referring Provider: Carson Vega, [address] [place], [place] [address], [address] . tel:[phone] OFFICE/OUTPAT IENT VISIT, [facility], [address] [place] [address], [id number] , [place] [phone] [facility], [facility] fibromyalgia (chief complaint) Other intervertebra l disc degeneration, lumbosacral region Lee-0 7-201 6 Krenzer Analy. [address] [place] [address], [id number], [place]. tel:[phone] Referring Provider: Carson Vega, [address] [place], [place] [address], [address] . tel:[phone] OFFICE/OUTPAT IENT VISIT, [facility], [address] [place] [address], [id number] , [place] tel:[phone] [facility] fibromyalgia (chief complaint) Fibromyalgia 6 Krenzer Analy. [address] [place] [address], [id number], [place]. tel:[phone] Referring Provider: Carson Vega, [address] [place], [place] [address], [address] . tel:[phone] OFFICE/OUTPAT IENT VISIT, [facility], [address] [place] [address], [id number] , [place] tel:[phone] [facility] fibromyalgia (chief complaint) Fibromyalgia 6 Krenzer Analy. [address] [place] [address], [id number], [place]. tel:[phone] Referring Provider: Carson Vega, [address] [place], [place] [address], [address] . tel:[phone] OFFICE/OUTPAT IENT VISIT, [facility], [address] [place] [address], [id number] , [place] tel:[phone] [facility] fibromyalgia (chief complaint) Fibromyalgia 6 Krenzer Analy. [address] [place] [address], [id number], [place]. tel:[phone] Referring Provider: Carson Vega, [address] [place], [place] [address], [address] . tel:[phone] OFFICE/OUTPAT IENT VISIT, [facility], [address] [place] [address], [id number] , [place] tel:[phone] [facility] fibromyalgia (chief complaint) Fibromyalgia 5 Nereida Beckford. [address] [place] [address], [id number], [place]. tel:[phone] Referring Provider: Carson Vega, [address] [place] [address] [place], [address] . tel:[phone] OFFICE/OUTPAT IENT VISIT, [facility], [address] [place] [address], [id number] , [place] tel:[phone] [facility] Back Pain (chief complaint) Other intervertebra l disc degeneration, lumbosacral region Nereida Beckford. [address] [place] [address], [id number], [place]. tel:[phone] Referring Provider: Carson Vega, [address] [place] [address] [place], [address] . tel:[phone] [facility], [facility], [address] [place] [address], [id number] , [place] tel:[phone] [facility], [facility] Sacroiliitis, not elsewhere classified 5 Will Carson. [address] [place] [address], [id number], [place]. tel:[phone] Referring Provider: Carson Vega, [address] [place] [address], [address] . tel:[phone] [facility], [facility], [address] [place] [address], [id number] , [place] tel:[phone] [facility], [facility] [place] Sacroiliitis, not elsewhere classified 5 Will Carson. [address] [place] [address], [id number], [place]. tel:[phone] OFFICE/OUTPAT IENT VISIT, [facility], [address] [place] [address], [id number] , [place] [phone] [facility] fibromyalgia (chief complaint) Fibromyalgia 5 Nereida Beckford. [address] [place] [address], [id number], [place]. tel:[phone] Referring Provider: Carson Vega, [address] [place] [address] [place], [address] . tel:[phone] OFFICE/OUTPAT IENT VISIT, [facility], [address] [place] [address], [id number] , [place] [phone] [facility] fibromyalgia (chief complaint) Myalgia and myositis, unspecified 5 Krenzer Analy. [address] [place] [address], [id number], [place]. tel:[phone] Referring Provider: Carson Vega, [address] [place], [place] [address], [address] . tel:[phone] OFFICE/OUTPAT IENT VISIT, [facility], [address] [place] [address], [id number] , [place] [phone] [facility] Widespread pain (chief complaint) Myalgia and myositis, unspecified 5 Krenzer Analy. [address] [place] [address], [id number], [place]. tel:[phone] Referring Provider: Carson Vega, [address] [place], [place] [address], [address] . tel:[phone] OFFICE/OUTPAT IENT VISIT, [facility], [address] [place] [address], [id number] , [place] [phone] [facility] Back Pain (chief complaint)fib romyalgia (chief complaint) Pain in joint involving lower legDegenerati on of lumbar or lumbosacral intervertebra l discLumbagoMy algia and myositis, unspecifiedUn specified arthropathy involving other specified sitesSacroili ac joint disorder No Information Referring Provider: Carson Vega, [address] [place], [place] [address], [address] . tel:[phone] OFFICE/OUTPAT IENT VISIT, [facility], [address] [facility] [place], [id number] , [place] tel:[phone] [facility], [facility] [place] Back Pain (chief complaint)fib romyalgia (chief complaint) Myalgia and myositis, unspecifiedLu mbagoSacroili ac joint disorderUnspe cified arthropathy involving other specified sites No Information Referring Provider: Carson Vega, [address] [place] [address] [place], [address] . tel:[phone] OFFICE/OUTPAT IENT VISIT, EST [facility], [facility], [address] [place] [address] [place], [place], [id number] , [place] tel:[phone] [facility] low back pain (chief complaint)fib romyalgia (chief complaint) Myalgia and myositis, unspecifiedSa croiliac joint disorderSacro iliitis, not elsewhere classifiedLum bagoDegenerat ion of lumbar or lumbosacral intervertebra l discUnspecifi ed arthropathy involving other specified sites No Information Referring Provider: Carson Vega, [address] [place] [address] [place], [address] . tel:[phone] [facility], [facility], [address] [place] [address] [place], [place], [id number] , [place] tel:[phone] [facility], [facility] [place] Sacroiliitis, not elsewhere classified Will Carson. [address] [place] [address], [id number], [place]. tel:[phone] Referring Provider: Carson Vega, [address] [place] [address] [place], [address] . tel:[phone] OFFICE/OUTPAT IENT VISIT, EST [facility], [facility], [address] [place] [address] [place], [place], [id number] , [place] tel:[phone] [facility], [facility] fibromyalgia (chief complaint)low back pain (chief complaint) Myalgia and myositis, unspecifiedDe generation of lumbar or lumbosacral intervertebra l discSacroilia c joint disorderPain in joint involving shoulder regionUnspeci fied arthropathy involving other specified sites Aug- 5 No Information Referring Provider: Carson Vega, [address] [place] [address] [place], [address] . tel:[phone] [facility], [facility], [address] [place] [address], [id number] , [place] tel: [phone] [facility] Degeneration of lumbar or lumbosacral intervertebra l disc Aug-0 5 Radha Mcmullen. [address] [place], [place], [id number], [place]. tel:[phone] Referring Provider: Carson Vega, [address] [place] [address] [place], [address] . tel:[phone] OFFICE/OUTPAT IENT VISIT, [facility], [address] [place] [address], [id number] , [place] tel: [phone] [facility] low back pain (chief complaint)fib romyalgia (chief complaint) Myalgia and myositis, unspecifiedSa croiliac joint disorderLumba goDegeneratio n of lumbar or lumbosacral intervertebra l discUnspecifi ed arthropathy involving other specified sites Jul-3 0 5 No Information Referring Provider: Carson Vega, [address] [place] [address] [place], [address] . tel:[phone] OFFICE/OUTPAT IENT VISIT, EST [facility], [facility], [address] [place] [address] [place], [place], [id number] , [place] tel: [phone] [facility] low back pain (chief complaint)fib romyalgia (chief complaint) Myalgia and myositis, unspecifiedLu mbagoUnspecif ied arthropathy involving other specified sitesSacroili ac joint disorderDegen eration of lumbar or lumbosacral intervertebra l disc Jun- 5 No Information Referring Provider: Carson Vega, [address] [facility] [place], [address] . tel:[phone] OFFICE/OUTPAT IENT VISIT, EST [facility], [facility], [address] [facility] [place], [id number] , [place] tel:[phone] [facility], [facility] low back pain (chief complaint)fib romyalgia (chief complaint) Myalgia and myositis, unspecifiedLu mbagoDegenera tion of lumbar or lumbosacral intervertebra l discSacroilia c joint disorderUnspe cified arthropathy involving other specified sites 0-201 5 No Information Referring Provider: Carson Vega, [address] [place], [place] [address], [address] . tel:[phone] [facility], [address] [place] [address], [id number] , [place] tel:[phone] [facility] Sacroiliitis Radha Mcmullen. [address] [place] [address], [id number], [place]. tel:[phone] Referring Provider: Carson Vega, [address] [place], [place] [address], [address] . tel:[phone] OFFICE/OUTPAT IENT VISIT, [facility], [address] [place] [address] [place], [place], [id number] , [place] tel:[phone] [facility] [place] fibromyalgia (chief complaint) LumbagoMyalgi a and myositis, unspecifiedPa in in joint involving shoulder regionUnspeci fied arthropathy involving other specified sitesDegenera tion of lumbar or lumbosacral intervertebra l disc 5 No Information Referring Provider: Carson Vega, [address] [place] [address] [place], [address] . tel:[phone] OFFICE/OUTPAT IENT VISIT, [facility], [address] [place] [address], [id number] , [place] tel:[phone] [facility] fibromyalgia (chief complaint)low back pain (chief complaint) Myalgia and myositis, unspecifiedLu mbagoPain in joint involving shoulder regionSacroil iac joint disorder 4 No Information Referring Provider: Carson Vega, [address] [place], [address] . tel:[phone] OFFICE/OUTPAT IENT VISIT, [facility], [address] [facility] [place], [id number] , [place] [phone] [facility] [facility] Neck pain (chief complaint)low back pain (chief complaint)Wid espread pain (chief complaint) Pain in joint involving shoulder regionLumbago Therapeutic Drug MonitoringMyo fascial pain syndrome Will Carson. [address], [place], [id number], [place]. tel:[phone] Referring Provider: Carson Vega, [address] [place], [address] . tel:[phone] Family History Family Member Type Diagnosis Age At Onset Mother Problem (finding) Back pain Payers Payer name Insurance type Covered alliance party ID Authoriza tion(s) No Information Social History Type Description Quantity Date Captured Comments Sex Female Smoking Status No Information Chief Complaint And Reason For Visit No Information Reason For Referral Reason For Referral No Information Plan Of Treatment Date Type Action Status Goal ALT (SGPT). Due on due Goal FLAP CURER Scanned. Due on 023 due Goal PHQ-9. Due on du e Goal Medication Recon ciliation. Due on due Goal Creatinine. Due on due Goal OARS. Due on due Goal Hepatitis C screening. Due o n due Goal Order Annual PT. Due on due Goal FINANCIAL ADVISOR Paperwork. Due on due Goal FIT. Due on due Goal AST (SGOT). Due on due Goal UDT. Due on due Goal FIT-DNA. Due on due Goal CT-Colonography. Due on due Goal Tobacco Use. Due on due Goal HPV. Due on due Goal Lipid panel. Due on due Goal Height. Due on d ue Goal Zoster vaccine (). Due on due Goal Weight. Due on d ue Goal Update Social History. Due o n due Goal Unhealthy drug u se screening. Due on due Goal Review Allergy List. Due on due Goal Medication Recon ciliation. Due on due Goal FIT. Due on due Goal FINANCIAL ADVISOR Paperwork. Due on due Goal Hepatitis C screening. Due o n due Goal FIT-DNA. Due on due Goal PHQ-9. Due on du e Goal CT-Colonography. Due on due Goal FLAP CURER Scanned. Due on due Goal Zoster vaccine (1st). Due on due Goal Review Allergy List. Due on due Goal Height. Due on d ue Goal AST (SGOT). Due on due Goal Order Annual PT. Due on due Goal Update Social History. Due o n due Goal Weight. Due on d ue Goal Lipid panel. Due on due Goal Tobacco Use. Due on due Goal Creatinine. Due on due Goal UDT. Due on due Goal HPV. Due on due Goal OARS. Due on due Goal ALT (SGPT). Due on due Goal Unhealthy drug u se screening. Due on due Goal Lipid panel. Due on due Goal Medication Recon ciliation. Due on due Goal Zoster vaccine (1st). Due on due Goal OARS. Due on due Goal FLAP CURER Scanned. Due on due Goal Hepatitis C screening. Due o n due Goal Review Allergy List. Due on due Goal Unhealthy drug u se screening. Due on due Goal CT-Colonography. Due on due Goal Weight. Due on d ue Goal HPV. Due on due Goal Order Annual PT. Due on due Goal PHQ-9. Due on du e Goal Update Social History. Due o n due Goal FINANCIAL ADVISOR Paperwork. Due on due Goal Tobacco Use. Due on due Goal ALT (SGPT). Due on due Goal FIT-DNA. Due on due Goal Height. Due on d ue Goal AST (SGOT). Due on due Goal FIT. Due on due Goal Creatinine. Due on due Goal UDT. Due on due Goal FLAP CURER Scanned. Due on due Goal Tobacco Use. Due on due Goal Unhealthy drug u se screening. Due on due Goal Weight. Due on d ue Goal CT-Colonography. Due on due Goal Creatinine. Due on due Goal UDT. Due on due Goal Lipid panel. Due on due Goal OARS. Due on due Goal ALT (SGPT). Due on due Goal FIT-DNA. Due on due Goal Update Social History. Due o n due Goal HPV. Due on due Goal Review Allergy List. Due on due Goal Height. Due on d ue Goal Order Annual PT. Due on due Goal FIT. Due on due Goal Medication Recon ciliation. Due on due Goal Zoster vaccine (). Due on due Goal AST (SGOT). Due on due Goal PHQ-9. Due on du e Goal FINANCIAL ADVISOR Paperwork. Due on due Goal Hepatitis C screening. Due o n due Goal FLAP CURER Scanned. Due on due Goal Order Annual PT. Due on due Goal Zoster vaccine (). Due on due Goal PHQ-9. Due on du e Goal FIT. Due on due Goal UDT. Due on due Goal Height. Due on d ue Goal Update Social History. Due o n due Goal Hepatitis C screening. Due o n due Goal Medication Recon ciliation. Due on due Goal Review Allergy List. Due on due Goal Weight. Due on d ue Goal Unhealthy drug u se screening. Due on due Goal Creatinine. Due on due Goal FIT-DNA. Due on due Goal FINANCIAL ADVISOR Paperwork. Due on due Goal ALT (SGPT). Due on due Jas-23-2023 Goal HPV. Due on due Goal CT-Colonography. Due on due Goal Lipid panel. Due on due Goal Tobacco Use. Due on due Goal AST (SGOT). Due on due Goal OARS. Due on due Goal OARS. Due on due Goal FLAP CURER Scanned. Due on due Goal Order Annual PT. Due on due Goal Tobacco Use. Due on due Goal Creatinine. Due on due Goal Height. Due on d ue Goal UDT. Due on due Goal Weight. Due on d ue Goal ALT (SGPT). Due on due Goal FINANCIAL ADVISOR Paperwork. Due on due Goal Hepatitis C screening. Due o n due Goal CT-Colonography. Due on due Goal AST (SGOT). Due on due Goal Medication Recon ciliation. Due on due Goal Update Social History. Due o n due Goal Lipid panel. Due on due Goal FIT. Due on due Goal PHQ-9. Due on du e Goal Zoster vaccine (1st). Due on due Goal Unhealthy drug u se screening. Due on due Goal FIT-DNA. Due on due Goal Review Allergy List. Due on due Goal HPV. Due on due Goal ALT (SGPT). Due on due Goal Height. Due on d ue Goal AST (SGOT). Due on due Goal Creatinine. Due on due Goal Order Annual PT. Due on due Goal FLAP CURER Scanned. Due on due Goal OARS. Due on due Goal UDT. Due on due Goal FINANCIAL ADVISOR Paperwork. Due on due Goal FIT. Due on due Goal CT-Colonography. Due on due Goal Tobacco Use. Due on due Goal Lipid panel. Due on due Goal Review Allergy List. Due on due Goal FIT-DNA. Due on due Goal Zoster vaccine (1st). Due on due Goal Hepatitis C screening. Due o n due Goal Weight. Due on d ue Goal Update Social History. Due o n due Goal Medication Recon ciliation. Due on due Goal HPV. Due on due Goal Unhealthy drug u se screening. Due on due Goal PHQ-9. Due on du e Goal FLAP CURER Scanned. Due on due Goal FIT. Due on due Goal Lipid panel. Due on due Goal Height. Due on d ue Goal Zoster vaccine (1st). Due on due Goal FIT-DNA. Due on due Goal Review Allergy List. Due on due Goal CT-Colonography. Due on due Goal Medication Recon ciliation. Due on due Goal Weight. Due on d ue Goal Unhealthy drug u se screening. Due on due Goal OARS. Due on due Goal Update Social History. Due o n due Goal Tobacco Use. Due on due Goal PHQ-9. Due on du e Goal Creatinine. Due on due Goal HPV. Due on due Goal UDT. Due on due Goal Hepatitis C screening. Due o n due Goal FINANCIAL ADVISOR Paperwork. Due on due Goal Order Annual PT. Due on due Goal AST (SGOT). Due on due Goal ALT (SGPT). Due on due Goal Unhealthy drug u se screening. Due on due Goal Height. Due on d ue Goal AST (SGOT). Due on due Goal FLAP CURER Scanned. Due on due Goal ALT (SGPT). Due on due Goal Order Annual PT. Due on due Goal Weight. Due on d ue Goal Creatinine. Due on due Goal Hepatitis C screening. Due o n due Goal FINANCIAL ADVISOR Paperwork. Due on due Goal CT-Colonography. Due on due Goal Medication Recon ciliation. Due on due Goal FIT. Due on due Goal Tobacco Use. Due on due Goal OARS. Due on due Goal UDT. Due on due Goal Lipid panel. Due on due Goal Zoster vaccine (1st). Due on due Goal FIT-DNA. Due on due Goal PHQ-9. Due on du e Goal Update Social History. Due o n due Goal HPV. Due on due Goal Review Allergy List. Due on due Goal FLAP CURER Scanned. Due on due Goal HPV. Due on due Goal Unhealthy drug u se screening. Due on due Goal AST (SGOT). Due on due Goal Creatinine. Due on due Goal Zoster vaccine (1st). Due on due Goal Lipid panel. Due on due Goal Update Social History. Due o n due Goal OARS. Due on due Goal ALT (SGPT). Due on due Goal FINANCIAL ADVISOR Paperwork. Due on due Goal Tobacco Use. Due on due Goal Order Annual PT. Due on due Goal UDT. Due on due Goal FIT. Due on due Goal Hepatitis C screening. Due o n due Goal FIT-DNA. Due on due Goal Height. Due on d ue Goal Weight. Due on d ue Goal Review Allergy List. Due on due Goal Medication Recon ciliation. Due on due Goal CT-Colonography. Due on due Goal PHQ-9. Due on du e Goal OARS. Due on due Goal UDT. Due on due Goal Order Annual PT. Due on due Goal Update Social History. Due o n due Goal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
--- OUTSIDE RECORDS SUMMARY | 2023-02-04 01:39 | XMS_ITS | Continuity of Care Document ---
Author Name Unknown Organization [facility] vida Address [address] [place] [address] Phone Care Team Providers Care Office Lead Name Role Phone Analy Padron CNP Unavailable [...] Diagnoses Date Provider Providers Copied on Encounter [facility], [address] [place] [address], [id number] , [place] tel:[phone] [facility] [place] No Information 3 Nereida Beckford. [address] [place] [address], [id number], [place]. tel:[phone] [facility], [address] [place] [address], [id number] , [place] tel: [phone] [facility] [place] No Information 3 Nereida Beckford. [address], [place], [id number], [place]. [phone] OFFICE VISIT, EST TELEMEDICINE [facility], [address] [place] [address], [id number] , [place] [phone] [facility] [place] Widespread pain (chief complaint) InsomniaOther intervertebra l disc degeneration, lumbosacral regionOther muscle spasmFibromya lgiaLong term (current) use of opiate analgesic 3 Nereida Beckford. [address] [place] [address], [id number], [place]. tel:[phone] Referring Provider: Carson Vega, [address] [place], [place] [address], [address] . tel:[phone] [facility], [address] [place] [address], [id number] , [place] [phone] [facility] [place] No Information 3 Dario Byrd. [address] [place] [address], [id number], [place]. tel:[phone] OFFICE/OUTPAT IENT VISIT, [facility], [address] [place] [address], [id number] , [place] tel:[phone] [facility] Widespread pain (chief complaint) InsomniaOther intervertebra l disc degeneration, lumbosacral regionOther muscle spasmFibromya lgiaLong term (current) use of opiate analgesicEnco unter for therapeutic drug level monitoring 3 Nereida Beckford. [address] [place] [address], [id number], [place]. tel:[phone] Referring Provider: Carson Vega, [address] [place], [place] [address], [address] . tel:[phone] OFFICE VISIT, EST TELEMEDICINE [facility], [address] [place] [address], [id number] , [place] tel:[phone] [facility] Fibromyalgia (chief complaint) InsomniaOther intervertebra l disc degeneration, lumbosacral regionOther muscle spasmFibromya lgiaLong term (current) use of opiate analgesic Jul- 3 Krenzer Analy. [address] [place] [address], [id number], [place]. tel:[phone] OFFICE VISIT, EST TELEMEDICINE [facility], [address] [place] [address], [id number] , [place] tel:[phone] [facility] [place] Fibromyalgia (chief complaint) InsomniaOther intervertebra l disc degeneration, lumbosacral regionOther muscle spasmFibromya lgiaLong term (current) use of opiate analgesic 3 Krenzer Analy. [address] [place] [address], [id number], [place]. tel:[phone] OFFICE/OUTPAT IENT VISIT, EST [facility], [address] [place] [address], [id number] , [place] tel:[phone] [facility] Fibromyalgia (chief complaint) InsomniaOther intervertebra l disc degeneration, lumbosacral regionOther muscle spasmFibromya lgiaLong term (current) use of opiate analgesicEnco unter for therapeutic drug level monitoring 2 Krenzer Analy. [address] [place] [address], [id number], [place]. tel:[phone] Referring Provider: Carson Vega, [address] [place], [place] [address], [address] . tel:[phone] [facility], [address] [place] [address], [id number] , [place] tel:[phone] [facility] No Information 2 Krenzer Analy. [address] [place] [address], [id number], [place]. tel:[phone] OFFICE VISIT, [facility] TELEMEDICINE [facility], [address] [place] [address], [id number] , [place] tel:[phone] [facility] Fibromyalgia (chief complaint) InsomniaOther intervertebra l disc degeneration, lumbosacral regionOther muscle spasmFibromya lgiaLong term (current) use of opiate analgesic Jan-2 2 Krenzer Analy. [address] [place] [address], [id number], [place]. tel:[phone] OFFICE VISIT, EST TELEMEDICINE [facility], [address] [place] [address], [id number] , [place] tel:[phone] [facility] Fibromyalgia (chief complaint) InsomniaOther intervertebra l disc degeneration, lumbosacral regionOther muscle spasmFibromya lgiaLong term (current) use of opiate analgesic Sep-0 2 Krenzer Analy. [address] [place] [address], [id number], [place]. tel:[phone] OFFICE VISIT, [facility], [address] [place] [address], [id number] , [place] tel:[phone] [facility] Fibromyalgia (chief complaint) InsomniaOther intervertebra l disc degeneration, lumbosacral regionOther muscle spasmFibromya lgiaLong term (current) use of opiate analgesic 2 Nereida Analy. [address] [place] [address], [id number], [place]. tel:[phone] Referring Provider: Carson Vega, [address] [place], [place] [address], [address] . tel:[phone] OFFICE/OUTPAT IENT VISIT, [facility], [address] [place] [address], [id number] , [place] tel:[phone] [facility] [place] Fibromyalgia (chief complaint) InsomniaOther intervertebra l disc degeneration, lumbosacral regionOther muscle spasmFibromya lgiaLong term (current) use of opiate analgesicEnco unter for screening for other disorder 2 Nereida Analy. [address] [place] [address], [id number], [place]. tel:[phone] Referring Provider: Carson Vega, [address] [place], [place] [address], [address] . tel:[phone] OFFICE VISIT, [facility], [address] [place] [address], [id number] , [place] tel:[phone] [facility] Fibromyalgia (chief complaint) InsomniaOther intervertebra l disc degeneration, lumbosacral regionOther muscle spasmFibromya lgiaLong term (current) use of opiate analgesic 2 Radhazer Analy. [address] [place] [address], [id number], [place]. tel:[phone] OFFICE VISIT, [facility], [address] [place] [address], [id number] , [place] tel:[phone] [facility] Fibromyalgia (chief complaint) InsomniaLong term (current) use of opiate analgesicOthe r muscle spasmFibromya lgiaOther intervertebra l disc degeneration, lumbosacral region Mar-0 2 Nereida Analy. [address] [place] [address], [id number], [place]. tel:[phone] OFFICE VISIT, [facility], [address] [place] [address], [id number] , [place] [phone] [facility] Fibromyalgia (chief complaint) FibromyalgiaO ther intervertebra l disc degeneration, lumbosacral regionInsomni aLong term (current) use of opiate analgesicOthe r muscle spasm Jas-0 2 Nereida Analy. [address] [place] [address], [id number], [place]. tel:[phone] OFFICE/OUTPAT IENT VISIT, [facility], [address] [place] [address], [id number] , [place] [phone] [facility] Fibromyalgia (chief complaint) FibromyalgiaO ther intervertebra l disc degeneration, lumbosacral regionInsomni aLong term (current) use of opiate analgesicOthe r muscle spasm Nov-0 1 Nereida Analy. [address] [place] [address], [id number], [place]. tel:[phone] Referring Provider: Carson Vega, [address] [place] [address], [address] . tel:[phone] OFFICE VISIT, [facility], [address] [place] [address], [id number] , [place] [phone] [facility] Fibromyalgia (chief complaint) FibromyalgiaO ther intervertebra l disc degeneration, lumbosacral regionInsomni aLong term (current) use of opiate analgesic Sep-0 1 Radhazer Analy. [address] [place] [address], [id number], [place]. tel:[phone] OFFICE VISIT, [facility], [address] [place] [address], [id number] , [place] [phone] [facility] Fibromyalgia (chief complaint) FibromyalgiaO ther intervertebra l disc degeneration, lumbosacral regionInsomni aLong term (current) use of opiate analgesic 1 Nereida Espinoza [address] [place] [address], [id number], [place]. tel:[phone] Referring Provider: Carson Vega, [address] [place], [place] [address], [address] . tel:[phone] [facility], [address] [place] [address], [id number] , [place] [phone] [facility] [place] No Information 1 Nereida Espinoza [address] [place] [address], [id number], [place]. tel:[phone] Referring Provider: Carson Vega, [address] [place], [place] [address], [address] . tel:[phone] OFFICE VISIT, EST TELEMEDICINE [facility], [address] [place] [address], [id number] , [place] tel:[phone] [facility] Fibromyalgia (chief complaint) FibromyalgiaO ther intervertebra l disc degeneration, lumbosacral regionInsomni aLong term (current) use of opiate analgesic 1 Nereida Espinoza [address] [place] [address], [id number], [place]. tel:[phone] Referring Provider: Carson Vega, [address] [place], [place] [address], [address] . tel:[phone] OFFICE VISIT, EST TELEMEDICINE [facility], [address] [place] [address], [id number] , [place] tel:[phone] [facility] [place] Fibromyalgia (chief complaint) FibromyalgiaO ther intervertebra l disc degeneration, lumbosacral regionInsomni aLong term (current) use of opiate analgesic 1 Nereida Espinoza [address] [place] [address], [id number], [place]. tel:[phone] OFFICE VISIT, [facility], [address] [place] [address], [id number] , [place] tel:[phone] [facility] Fibromyalgia (chief complaint) FibromyalgiaO ther intervertebra l disc degeneration, lumbosacral regionInsomni aLong term (current) use of opiate analgesic 1 Krenzer Analy. [address] [place] [address], [id number], [place]. tel:[phone] Referring Provider: Carson Vega, [address] [place] [address] [place], [address] . tel:[phone] OFFICE VISIT, [facility], [address] [place] [address], [id number] , [place] tel:[phone] [facility] Fibromyalgia (chief complaint) FibromyalgiaO ther intervertebra l disc degeneration, lumbosacral regionInsomni aLong term (current) use of opiate analgesic 0 Nereida Analy. [address] [place] [address], [id number], [place]. tel:[phone] Referring Provider: Carson Vega, [address] [place] [address] [place], [address] . tel:[phone] OFFICE VISIT, [facility], [address] [place] [address], [id number] , [place] [phone] [facility] Fibromyalgia (chief complaint) FibromyalgiaO ther intervertebra l disc degeneration, lumbosacral regionInsomni aLong term (current) use of opiate analgesic 0 Warren Kaur. [address] [place] [address], [id number], [place]. tel:[phone] OFFICE VISIT, [facility], [address] [place] [address], [id number] , [place] tel:[phone] [place] Fibromyalgia (chief complaint) FibromyalgiaO ther intervertebra l disc degeneration, lumbosacral regionInsomni aLong term (current) use of opiate analgesic 0 Lelandnzer Analy. [address] [place] [address], [id number], [place]. tel:[phone] OFFICE VISIT, [facility], [address] [place] [address], [id number] , [place] [phone] [facility] Fibromyalgia (chief complaint) FibromyalgiaO ther intervertebra l disc degeneration, lumbosacral regionInsomni aLong term (current) use of opiate analgesic 0 Lelandnzer Analy. [address] [place] [address], [id number], [place]. tel:[phone] Referring Provider: Carson Vega, [address] [place], [place] [address], [address] . tel:[phone] OFFICE VISIT, [facility], [address] [place] [address], [id number] , [place] [phone] [facility] Fibromyalgia (chief complaint) FibromyalgiaO ther intervertebra l disc degeneration, lumbosacral regionInsomni aLong term (current) use of opiate analgesic 0 Nereida Analy. [address] [place] [address], [id number], [place]. tel:[phone] Referring Provider: Carson Vega, [address] [place], [place] [address], [address] . tel:[phone] OFFICE VISIT, [facility], [address] [place] [address], [id number] , [place] [phone] [facility] Fibromyalgia (chief complaint) FibromyalgiaL arsenio term (current) use of opiate analgesicOthe r intervertebra l disc degeneration, lumbosacral regionInsomni a 0 Lelandnzer Analy. [address] [place] [address], [id number], [place]. tel:[phone] OFFICE VISIT, [facility], [address] [place] [address], [id number] , [place] [phone] [facility] [place] Fibromyalgia (chief complaint) FibromyalgiaO ther intervertebra l disc degeneration, lumbosacral regionLong term (current) use of opiate analgesicInso mnia Aug- 0 Nereida Analy. [address], [place], [id number], [place]. tel:[phone] OFFICE VISIT, [facility] TELEMEDICINE [facility], [address], [place], [id number] , [place] tel:[phone] [facility] Fibromyalgia (chief complaint) FibromyalgiaO ther intervertebra l disc degeneration, lumbosacral regionLong term (current) use of opiate analgesic 0 Lelandnzer Analy. [address], [place], [id number], [place]. tel:[phone] Referring Provider: Carson Vega, [address] [place], [place] [address], [address] . tel:[phone] OFFICE/OUTPAT IENT VISIT, [facility], [address] [place] [address], [id number] , [place] tel:[phone] [facility] Fibromyalgia (chief complaint) Other intervertebra l disc degeneration, lumbosacral regionFibromy algiaLong term (current) use of opiate analgesic 0 Nereida Analy. [address], [place], [id number], [place]. tel:[phone] Referring Provider: Carson Vega, [address] [place], [place] [address], [address] . tel:[phone] OFFICE/OUTPAT IENT VISIT, [facility], [address] [place] [address], [id number] , [place] tel:[phone] [facility] Fibromyalgia (chief complaint) Other intervertebra l disc degeneration, lumbosacral regionFibromy algiaLong term (current) use of opiate analgesicEnco unter for therapeutic drug level monitoring 6-201 9 Perla Brito. [address], [place], [id number], [place]. tel:[phone] Referring Provider: Carson Vega, [address] [place], [place] [address], [address] . tel:[phone] OFFICE/OUTPAT IENT VISIT, [facility], [address] [place] [address], [id number] , [place] [phone] [facility] Fibromyalgia (chief complaint) FibromyalgiaO ther intervertebra l disc degeneration, lumbosacral regionSacroil iitis, not elsewhere classifiedLon g term (current) use of opiate analgesic Mar-2 9 Krenzer Analy. [address] [place] [address], [id number], [place]. tel:[phone] Referring Provider: Carson Vega, [address] [place], [place] [address], [address] . tel:[phone] OFFICE/OUTPAT IENT VISIT, [facility], [address] [place] [address], [id number] , [place] [phone] [facility] Fibromyalgia (chief complaint) FibromyalgiaO ther intervertebra l disc degeneration, lumbosacral regionSacroil iitis, not elsewhere classifiedLon g term (current) use of opiate analgesic 3 9 Krenzer Analy. [address] [place] [address], [id number], [place]. tel:[phone] Referring Provider: Carson Vega, [address] [place], [place] [address], [address] . tel:[phone] OFFICE/OUTPAT IENT VISIT, [facility], [address] [place] [address], [id number] , [place] [phone] [facility] Fibromyalgia (chief complaint) intermodal truck driver (current) use of opiate analgesicFibr omyalgiaSacro iliitis, not elsewhere classifiedOth er intervertebra l disc degeneration, lumbosacral regionOther muscle spasm Feb-0 9 Krenzer Analy. [address] [place] [address], [id number], [place]. tel:[phone] Referring Provider: Carson Vega, [address] [place], [place] [address], [address] . tel:[phone] OFFICE/OUTPAT IENT VISIT, [facility], [address] [place] [address], [id number] , [place] [phone] [facility] Fibromyalgia (chief complaint) FibromyalgiaS acroiliitis, not elsewhere classifiedOth er intervertebra l disc degeneration, lumbosacral regionLong term (current) use of opiate analgesic 9 Nereida Analy. [address] [place] [address], [id number], [place]. tel:[phone] Referring Provider: Carson Vega, [address] [place] [address] [place], [address] . tel:[phone] OFFICE/OUTPAT IENT VISIT, [facility], [address] [place] [address], [id number] , [place] [phone] [facility] Fibromyalgia (chief complaint) FibromyalgiaS acroiliitis, not elsewhere classifiedOth er intervertebra l disc degeneration, lumbosacral regionLong term (current) use of opiate analgesic Lelandnzer Analy. [address] [place] [address], [id number], [place]. tel:[phone] Referring Provider: Carson Vega, [address] [place] [address] [place], [address] . tel:[phone] OFFICE/OUTPAT IENT VISIT, [facility], [address] [place] [address], [id number] , [place] [phone] [facility] Fibromyalgia (chief complaint) Sacroiliitis, not elsewhere classifiedOth er intervertebra l disc degeneration, lumbosacral regionFibromy algiaLong term (current) use of opiate analgesic America Patel. [address] [place] [address] [address], [place], [place], [id number], [place]. tel:[phone] Referring Provider: Carson Vega, [address] [place] [address], [address] . tel:[phone] OFFICE/OUTPAT IENT VISIT, [facility], [address] [place] [address], [id number] , [place] [phone] [facility] Fibromyalgia (chief complaint) FibromyalgiaS acroiliitis, not elsewhere classifiedOth er intervertebra l disc degeneration, lumbosacral regionLong term (current) use of opiate analgesicEnco unter for therapeutic drug level monitoring 9 Nereida Beckford. [address] [place] [address], [id number], [place]. tel:[phone] Referring Provider: Carson Vega, [address] [place] [address], [address] . tel:[phone] OFFICE/OUTPAT IENT VISIT, [facility], [address] [place] [address], [id number] , [place] [phone] [facility] Fibromyalgia (chief complaint) FibromyalgiaS acroiliitis, not elsewhere classifiedOth er intervertebra l disc degeneration, lumbosacral regionLong term (current) use of opiate analgesic 9 Nereida Beckford. [address] [place] [address], [id number], [place]. tel:[phone] Referring Provider: Carson Vega, [address] [place] [address] [place], [address] . tel:[phone] OFFICE/OUTPAT IENT VISIT, [facility], [address] [place] [address], [id number] , [place] [phone] [facility] Fibromyalgia (chief complaint) FibromyalgiaS acroiliitis, not elsewhere classifiedPai n in right shoulderOther intervertebra l disc degeneration, lumbosacral regionLong term (current) use of opiate analgesic Fe 9 Nereida Beckford. [address] [place] [address], [id number], [place]. tel:[phone] Referring Provider: Carson Vega, [address] [place], [place] [address], [address] . tel:[phone] OFFICE/OUTPAT IENT VISIT, [facility], [address] [place] [address], [id number] , [place] [phone] [facility] Fibromyalgia (chief complaint) FibromyalgiaS acroiliitis, not elsewhere classifiedPai n in right shoulderOther intervertebra l disc degeneration, lumbosacral region 8 Nereida Beckford. [address] [place] [address], [id number], [place]. tel:[phone] Referring Provider: Carson Vega, [address] [place] [address] [place], [address] . tel:[phone] OFFICE/OUTPAT IENT VISIT, [facility], [address] [place] [address], [id number] , [place] [phone] [facility] fibromyalgia (chief complaint) FibromyalgiaS acroiliitis, not elsewhere classifiedPai n in right shoulderOther intervertebra l disc degeneration, lumbosacral regionLong term (current) use of opiate analgesic 8 Nereida Beckford. [address] [place] [address], [id number], [place]. tel:[phone] Referring Provider: Carson Vega, [address] [place] [address] [place], [address] . tel:[phone] OFFICE/OUTPAT IENT VISIT, [facility], [address] [place] [address], [id number] , [place] [phone] [facility] Back Pain (chief complaint) FibromyalgiaS acroiliitis, not elsewhere classifiedPai n in right shoulderOther intervertebra l disc degeneration, lumbosacral region 8 Ni Aguirre. [address] [place] [address] [address], [place], [place], [id number], [place]. tel:[phone] Referring Provider: Carson Vega, [facility] [place], [address] . tel:[phone] OFFICE/OUTPAT IENT VISIT, [facility], [address] [place] [address], [id number] , [place] tel:[phone] [facility] fibromyalgia (chief complaint) FibromyalgiaO ther intervertebra l disc degeneration, lumbosacral region Lee- 8 [employer]. [address] [place] [address], [id number], [place]. tel:[phone] Referring Provider: Carson Vega, [address] [place], [place] [address], [address] . tel:[phone] OFFICE/OUTPAT IENT VISIT, [facility], [address] [place] [address], [id number] , [place] tel:[phone] [facility] fibromyalgia (chief complaint) FibromyalgiaO ther intervertebra l disc degeneration, lumbosacral region 8 [employer]. [address] [place] [address], [id number], [place]. tel:[phone] Referring Provider: Carson Vega, [address] [place] [address], [place], [address] . tel:[phone] OFFICE/OUTPAT IENT VISIT, [facility], [address] [place] [address], [id number] , [place] tel:[phone] [facility] fibromyalgia (chief complaint) FibromyalgiaO ther intervertebra l disc degeneration, lumbosacral region 8 [employer]. [address] [place] [address], [id number], [place]. tel:[phone] Referring Provider: Carson Vega, [address] [place], [place] [address], [address] . tel:[phone] OFFICE/OUTPAT IENT VISIT, [facility], [address] [place] [address], [id number] , [place] tel:[phone] [facility] fibromyalgia (chief complaint) FibromyalgiaO ther intervertebra l disc degeneration, lumbosacral region Dec-2 7 [employer]. [address], [place], [id number], [place]. tel:[phone] Referring Provider: Carson Vega, [address] [place], [place] [address], [address] . tel:[phone] OFFICE/OUTPAT IENT VISIT, [facility], [address] [place] [address], [id number] , [place] tel:[phone] [facility] fibromyalgia (chief complaint) FibromyalgiaO ther intervertebra l disc degeneration, lumbosacral region Mar-0 7 [employer]. [address], [place], [id number], [place]. tel:[phone] Referring Provider: Carson Vega, [address] [place], [place] [address], [address] . tel:[phone] OFFICE/OUTPAT IENT VISIT, [facility], [address] [place] [address], [id number] , [place] tel:[phone] [facility] fibromyalgia (chief complaint) Other intervertebra l disc degeneration, lumbosacral regionFibromy algia Sep-2 7 [employer]. [address], [place], [id number], [place]. tel:[phone] Referring Provider: Carson Vega, [address] [place], [place] [address], [address] . tel:[phone] OFFICE/OUTPAT IENT VISIT, [facility], [address] [place] [address], [id number] , [place] [phone] [facility] fibromyalgia (chief complaint) Other intervertebra l disc degeneration, lumbosacral regionFibromy algia Nov-2 7 [employer]. [address], [place], [id number], [place]. tel:[phone] Referring Provider: Edgardo Erwin[address] [place], [address] . tel:[phone] OFFICE/OUTPAT IENT VISIT, [facility], [address] [place] [address], [id number] , [place] tel:[phone] [facility] fibromyalgia (chief complaint) Other intervertebra l disc degeneration, lumbosacral regionFibromy algiaLong term (current) use of opiate analgesic Lee-0 5- 7 Radhazer [employer]. [address] [place] [address], [id number], [place]. tel:[phone] Referring Provider: Carson Vega, [address] [place] [address] [place], [address] . tel:[phone] OFFICE/OUTPAT IENT VISIT, [facility], [address] [place] [address], [id number] , [place] tel:[phone] [facility] Fibromyalgia (chief complaint) Other intervertebra l disc degeneration, lumbosacral regionFibromy algiaLong term (current) use of opiate analgesic Apr-0 7 Lelandnzer [employer]. [address] [place] [address], [id number], [place]. tel:[phone] Referring Provider: Carson Vega, [address] [place], [place] [address], [address] . tel:[phone] OFFICE/OUTPAT IENT VISIT, [facility], [address] [place] [address], [id number] , [place] [phone] [facility] fibromyalgia (chief complaint) FibromyalgiaO ther intervertebra l disc degeneration, lumbosacral regionLong term (current) use of opiate analgesic May-3 7 Lelandnzer [employer]. [address] [place] [address], [id number], [place]. tel:[phone] Referring Provider: Carson Vega, [address] [place] [address] [place], [address] . tel:[phone] OFFICE/OUTPAT IENT VISIT, [facility], [address] [place] [address], [id number] , [place] [phone] [facility] fibromyalgia (chief complaint) FibromyalgiaL arsenio term (current) use of opiate analgesic Dec-0 6-201 6 [employer]. [address] [place] [address], [id number], [place]. tel:[phone] Referring Provider: Carson Vega, [address] [place], [place] [address], [address] . tel:[phone] OFFICE/OUTPAT IENT VISIT, [facility], [address] [place] [address], [id number] , [place] [phone] [facility] fibromyalgia (chief complaint) FibromyalgiaL arsenio term (current) use of opiate analgesic Oct-0 3-201 6 [employer]. [address] [place] [address], [id number], [place]. tel:[phone] Referring Provider: Carson Vega, [address] [place], [place] [address], [address] . tel:[phone] OFFICE/OUTPAT IENT VISIT, [facility], [address] [place] [address], [id number] , [place] [phone] [facility] fibromyalgia (chief complaint) FibromyalgiaO ther intervertebra l disc degeneration, lumbosacral region Aug-1 0-201 6 [employer]. [address] [place] [address], [id number], [place]. tel:[phone] Referring Provider: Carson Vega, [address] [place], [place] [address], [address] . tel:[phone] OFFICE/OUTPAT IENT VISIT, [facility], [address] [place] [address], [id number] , [place] [phone] [facility] fibromyalgia (chief complaint) Other intervertebra l disc degeneration, lumbosacral region Lee-0 7-201 6 [employer]. [address] [place] [address], [id number], [place]. tel:[phone] Referring Provider: Carson Vega, [address] [place], [place] [address], [address] . tel:[phone] OFFICE/OUTPAT IENT VISIT, [facility], [address] [place] [address], [id number] , [place] tel:[phone] [facility] fibromyalgia (chief complaint) Fibromyalgia 6 [employer]. [address] [place] [address], [id number], [place]. tel:[phone] Referring Provider: Carson Vega, [address] [place], [place] [address], [address] . tel:[phone] OFFICE/OUTPAT IENT VISIT, [facility], [address] [place] [address], [id number] , [place] tel:[phone] [facility] fibromyalgia (chief complaint) Fibromyalgia 6 [employer]. [address] [place] [address], [id number], [place]. tel:[phone] Referring Provider: Carson Vega, [address] [place], [place] [address], [address] . tel:[phone] OFFICE/OUTPAT IENT VISIT, [facility], [address] [place] [address], [id number] , [place] tel:[phone] [facility] fibromyalgia (chief complaint) Fibromyalgia 6 [employer]. [address] [place] [address], [id number], [place]. tel:[phone] Referring Provider: Carson Vega, [address] [place], [place] [address], [address] . tel:[phone] OFFICE/OUTPAT IENT VISIT, [facility], [address] [place] [address], [id number] , [place] tel:[phone] [facility] fibromyalgia (chief complaint) Fibromyalgia 5 Nereida Beckford. [address] [place] [address], [id number], [place]. tel:[phone] Referring Provider: Carson Vega, [address] [place] [address] [place], [address] . tel:[phone] OFFICE/OUTPAT IENT VISIT, [facility], [address] [place] [address], [id number] , [place] tel:[phone] [facility] Back Pain (chief complaint) Other intervertebra l disc degeneration, lumbosacral region Nereida Beckford. [address] [place] [address], [id number], [place]. tel:[phone] Referring Provider: Carson Vega, [address] [place] [address] [place], [address] . tel:[phone] [facility], [address] [place] [address], [id number] , [place] tel:[phone] [facility] Sacroiliitis, not elsewhere classified 5 Will Carson. [address] [place] [address], [id number], [place]. tel:[phone] Referring Provider: Carson Vega, [address] [place] [address], [address] . tel:[phone] [facility], [address] [place] [address], [id number] , [place] tel:[phone] [facility] [place] Sacroiliitis, not elsewhere classified 5 Will Carson. [address] [place] [address], [id number], [place]. tel:[phone] OFFICE/OUTPAT IENT VISIT, [facility], [address] [place] [address], [id number] , [place] [phone] [facility] fibromyalgia (chief complaint) Fibromyalgia 5 Nereida Beckford. [address] [place] [address], [id number], [place]. tel:[phone] Referring Provider: Carson Vega, [address] [place] [address] [place], [address] . tel:[phone] OFFICE/OUTPAT IENT VISIT, [facility], [address] [place] [address], [id number] , [place] [phone] [facility] fibromyalgia (chief complaint) Myalgia and myositis, unspecified 5 [employer]. [address] [place] [address], [id number], [place]. tel:[phone] Referring Provider: Carson Vega, [address] [place], [place] [address], [address] . tel:[phone] OFFICE/OUTPAT IENT VISIT, [facility], [address] [place] [address], [id number] , [place] [phone] [facility] Widespread pain (chief complaint) Myalgia and myositis, unspecified 5 [employer]. [address] [place] [address], [id number], [place]. tel:[phone] Referring Provider: Carson Vega, [address] [place], [place] [address], [address] . tel:[phone] OFFICE/OUTPAT IENT VISIT, [facility], [address] [place] [address], [id number] , [place] [phone] [facility] Back Pain (chief complaint)fib romyalgia (chief complaint) Pain in joint involving lower legDegenerati on of lumbar or lumbosacral intervertebra l discLumbagoMy algia and myositis, unspecifiedUn specified arthropathy involving other specified sitesSacroili ac joint disorder No Information Referring Provider: Carson Vega, [address] [place], [place] [address], [address] . tel:[phone] OFFICE/OUTPAT IENT VISIT, [facility], [address] [facility] [place], [place], [id number] , [place] tel:[phone] [facility] [place] Back Pain (chief complaint)fib romyalgia (chief complaint) Myalgia and myositis, unspecifiedLu mbagoSacroili ac joint disorderUnspe cified arthropathy involving other specified sites No Information Referring Provider: Carson Vega, [address] [place] [address] [place], [address] . tel:[phone] OFFICE/OUTPAT IENT VISIT, EST [facility], [address] [place] [address] [place], [place], [id number] , [place] tel:[phone] [facility] low back pain (chief complaint)fib romyalgia (chief complaint) Myalgia and myositis, unspecifiedSa croiliac joint disorderSacro iliitis, not elsewhere classifiedLum bagoDegenerat ion of lumbar or lumbosacral intervertebra l discUnspecifi ed arthropathy involving other specified sites No Information Referring Provider: Carson Vega, [address] [place] [address] [place], [address] . tel:[phone] [facility], [address] [place] [address] [place], [place], [id number] , [place] tel:[phone] [facility] [place] Sacroiliitis, not elsewhere classified Will Carson. [address] [place] [address], [id number], [place]. tel:[phone] Referring Provider: Carson Vega, [address] [place] [address] [place], [address] . tel:[phone] OFFICE/OUTPAT IENT VISIT, EST [facility], [address] [place] [address] [place], [place], [id number] , [place] tel:[phone] [facility] fibromyalgia (chief complaint)low back pain (chief complaint) Myalgia and myositis, unspecifiedDe generation of lumbar or lumbosacral intervertebra l discSacroilia c joint disorderPain in joint involving shoulder regionUnspeci fied arthropathy involving other specified sites Aug- 5 No Information Referring Provider: Carson Vega, [address] [place] [address] [place], [address] . tel:[phone] [facility], [address] [place] [address], [id number] , [place] tel: [phone] [facility] Degeneration of lumbar or lumbosacral intervertebra l disc Aug-0 5 Radha Mcmullen. [address], [place], [id number], [place]. tel:[phone] Referring Provider: Carson Vega, [address] [place] [address] [place], [address] . tel:[phone] OFFICE/OUTPAT IENT VISIT, [facility], [address] [place] [address], [id number] , [place] tel: [phone] [facility] low back pain (chief complaint)fib romyalgia (chief complaint) Myalgia and myositis, unspecifiedSa croiliac joint disorderLumba goDegeneratio n of lumbar or lumbosacral intervertebra l discUnspecifi ed arthropathy involving other specified sites Jul-3 0 5 No Information Referring Provider: Carson Vega, [address] [place] [address] [place], [address] . tel:[phone] OFFICE/OUTPAT IENT VISIT, EST [facility], [address] [place] [address] [place], [place], [id number] , [place] tel: [phone] [facility] low back pain (chief complaint)fib romyalgia (chief complaint) Myalgia and myositis, unspecifiedLu mbagoUnspecif ied arthropathy involving other specified sitesSacroili ac joint disorderDegen eration of lumbar or lumbosacral intervertebra l disc Jun- 5 No Information Referring Provider: Carson Vega, [address] [facility] [place], [address] . tel:[phone] OFFICE/OUTPAT IENT VISIT, EST [facility], [address] [facility] [place], [place], [id number] , [place] tel:[phone] [facility] low back pain (chief complaint)fib romyalgia (chief complaint) Myalgia and myositis, unspecifiedLu mbagoDegenera tion of lumbar or lumbosacral intervertebra l discSacroilia c joint disorderUnspe cified arthropathy involving other specified sites 0-201 5 No Information Referring Provider: Carson Vega, [address] [place], [place] [address], [address] . tel:[phone] [facility], [address] [place] [address], [id number] , [place] tel:[phone] [facility] Sacroiliitis Radha Mcmullen. [address] [place] [address], [id number], [place]. tel:[phone] Referring Provider: Carson Vega, [address] [place], [place] [address], [address] . tel:[phone] OFFICE/OUTPAT IENT VISIT, [facility], [address] [place] [address] [place], [place], [id number] , [place] tel:[phone] [facility] [place] fibromyalgia (chief complaint) LumbagoMyalgi a and myositis, unspecifiedPa in in joint involving shoulder regionUnspeci fied arthropathy involving other specified sitesDegenera tion of lumbar or lumbosacral intervertebra l disc 5 No Information Referring Provider: Carson Vega, [address] [place] [address] [place], [address] . tel:[phone] OFFICE/OUTPAT IENT VISIT, [facility], [address] [place] [address], [id number] , [place] tel:[phone] [facility] fibromyalgia (chief complaint)low back pain (chief complaint) Myalgia and myositis, unspecifiedLu mbagoPain in joint involving shoulder regionSacroil iac joint disorder 4 No Information Referring Provider: Carson Vega, [address] [place], [address] . tel:[phone] OFFICE/OUTPAT IENT VISIT, [facility], [address] [facility] [place], [place], [id number] , [place] [phone] [facility] Neck pain (chief complaint)low back pain (chief complaint)Wid espread pain (chief complaint) Pain in joint involving shoulder regionLumbago Therapeutic Drug MonitoringMyo fascial pain syndrome Will Carson. [address], [place], [id number], [place]. tel:[phone] Referring Provider: Carson Vega, [address] [place], [address] . tel:[phone] Family History Family Member Type Diagnosis Age At Onset Mother Problem (finding) Back pain Payers Payer name Insurance type Covered republican ID Authoriza tion(s) No Information Social History Type Description Quantity Date Captured Comments Sex Female Smoking Status No Information Chief Complaint And Reason For Visit No Information Reason For Referral Reason For Referral No Information Plan Of Treatment Date Type Action Status Goal ALT (SGPT). Due on due Goal INNER TUBE TUBER MACHINE OPERATOR Scanned. Due on 023 due Goal Medication Recon ciliation. Due on due Goal CT-Colonography. Due on due Goal Creatinine. Due on due Goal OARS. Due on due Goal Hepatitis C screening. Due o n due Goal PHQ-9. Due on du e Goal Order Annual PT. Due on due Goal HEEL SPLITTER Paperwork. Due on due Goal FIT. Due on due Goal AST (SGOT). Due on due Goal UDT. Due on due Goal FIT-DNA. Due on due Goal Update Social History. Due o n due Goal Unhealthy drug u se screening. Due on due Goal Zoster vaccine (1st). Due on due Goal Review Allergy List. Due on due Goal Weight. Due on d ue Goal Tobacco Use. Due on due Goal HPV. Due on due Goal Lipid panel. Due on due Goal Height. Due on d ue Goal Medication Recon ciliation. Due on due Goal ALT (SGPT). Due on due Goal Unhealthy drug u se screening. Due on due Goal FIT. Due on due Goal HEEL SPLITTER Paperwork. Due on due Goal Hepatitis C screening. Due o n due Goal FIT-DNA. Due on due Goal PHQ-9. Due on du e Goal CT-Colonography. Due on due Goal INNER TUBE TUBER MACHINE OPERATOR Scanned. Due on due Goal Zoster vaccine [...] due Goal OARS. Due on due Goal Review Allergy List. Due on due Goal Unhealthy drug u se screening. Due on due Goal CT-Colonography. Due on due Goal Weight. Due on d ue Goal HPV. Due on due Goal Order Annual PT. Due on due Goal PHQ-9. Due on du e Goal Update Social History. Due o n due Goal HEEL SPLITTER Paperwork. Due on due Goal Tobacco Use. Due on due Goal ALT (SGPT). Due on due Goal FIT-DNA. Due on due Goal Height. Due on d ue Goal AST (SGOT). Due on due Goal FIT. Due on due Goal Creatinine. Due on due Goal UDT. Due on due Goal Hepatitis C screening. Due o n due Goal INNER TUBE TUBER MACHINE OPERATOR Scanned. Due on due Goal OARS. Due on due Goal Zoster vaccine (). Due on due Goal Medication Recon ciliation. Due on due Goal Lipid panel. Due on due Goal Height. Due on d ue Goal HEEL SPLITTER Paperwork. Due on due Goal Hepatitis C screening. Due o n due Goal Order Annual PT. Due on due Goal FIT. Due on due Goal Medication Recon ciliation. Due on due Goal Zoster vaccine (). Due on due Goal AST (SGOT). Due on due Goal PHQ-9. Due on du e Goal INNER TUBE TUBER MACHINE OPERATOR Scanned. Due on due Goal Tobacco Use. [...] Review Allergy List. Due on due Goal INNER TUBE TUBER MACHINE OPERATOR Scanned. Due on due Goal AST (SGOT). Due on due Goal OARS. Due on due Goal Order Annual PT. Due on due Goal Tobacco Use. Due on due Goal Zoster vaccine (1st). Due on due Goal PHQ-9. Due on [...] due Goal FIT-DNA. Due on due Goal HEEL SPLITTER Paperwork. Due on due Goal ALT (SGPT). Due on due Goal HPV. Due on due Goal CT-Colonography. Due on due Goal Lipid panel. Due on due Goal Tobacco Use. Due on due Goal ALT (SGPT). Due on due Goal HEEL SPLITTER Paperwork. Due on due Goal Height. Due on d ue Goal UDT. Due on due Goal Weight. Due on d ue Goal AST (SGOT). Due on due Goal Hepatitis C screening. Due o n due Goal CT-Colonography. Due on due Goal Creatinine. Due on due Goal Zoster vaccine (1st). Due on due Goal Medication Recon ciliation. Due on due Goal Unhealthy drug u se screening. Due on due Goal Review Allergy List. Due on due Goal HPV. Due on due Goal OARS. Due on due Goal INNER TUBE TUBER MACHINE OPERATOR Scanned. Due on due Goal Order Annual PT. Due on due Goal FIT-DNA. Due on due Goal Update Social History. Due o n due Goal Lipid panel. Due on due Goal FIT. Due on due Goal PHQ-9. Due on du e Goal AST (SGOT). Due on due Goal Creatinine. Due on due Goal Order Annual PT. Due on due Goal INNER TUBE TUBER MACHINE OPERATOR Scanned. Due on due Goal OARS. Due on due Goal UDT. Due on due Goal HEEL SPLITTER Paperwork. Due on due Goal FIT. Due on due Goal ALT (SGPT). Due on due Goal Height. Due on d ue Goal PHQ-9. Due on du e Goal Weight. Due on d ue Goal Update Social History. Due o n due Goal HPV. Due on due Goal Unhealthy drug u se screening. Due on due Goal Medication Recon ciliation. Due on due Goal Hepatitis C screening. Due o n due Goal Zoster vaccine (1st). Due on due Goal Lipid panel. Due on due Goal Review Allergy List. Due on due Goal FIT-DNA. Due on due Goal CT-Colonography. Due on due Goal Tobacco Use. Due on due Goal Lipid panel. Due on due Goal AST (SGOT). Due [...] Social History. Due o n due Goal INNER TUBE TUBER MACHINE OPERATOR Scanned. Due on due Goal FIT. Due on due Goal Tobacco Use. Due on due Goal PHQ-9. Due on du e Goal Creatinine. Due on due Goal HPV. Due on due Goal UDT. Due on due Goal Hepatitis C screening. Due o n due Goal HEEL SPLITTER Paperwork. Due on due Goal Order Annual PT. Due on due Goal Unhealthy drug u se screening. Due on due Goal HPV. Due on due Goal Review Allergy List. Due on due Goal Height. Due on d ue Goal AST (SGOT). Due on due Goal INNER TUBE TUBER MACHINE OPERATOR Scanned. Due on due Goal ALT (SGPT). Due on due Goal Order Annual PT. Due on due Goal Weight. Due on d ue Goal Creatinine. Due on due Goal Hepatitis C screening. Due o n due Goal HEEL SPLITTER Paperwork. Due on due Goal CT-Colonography. Due [...] Social History. Due o n due Goal Update Social History. Due o n due Goal CT-Colonography. Due on due Goal PHQ-9. Due on du e Goal OARS. Due on due Goal ALT (SGPT). Due on due Goal HEEL SPLITTER Paperwork. Due on due Goal Tobacco Use. [...] Medication Recon ciliation. Due on due Goal INNER TUBE TUBER MACHINE OPERATOR Scanned. Due on due Goal HPV. Due on due Goal Unhealthy drug u se screening. Due on due Goal AST (SGOT). Due on due Goal Creatinine. Due on due Goal Zoster vaccine (1st). Due on due Goal Lipid panel. Due on due Goal UDT. Due on due Goal OARS. Due on due Goal Creatinine. Due on due Goal PHQ-9. Due on du e Goal Update Social History. Due o n due Goal Unhealthy drug u se screening. Due on due Goal HEEL SPLITTER Paperwork. Due on due Goal Review Allergy List. Due on due Goal Zoster vaccine (1st). Due on due Goal INNER TUBE TUBER MACHINE OPERATOR Scanned. Due on due Goal Lipid panel. Due on due Goal HPV. Due on [...] Medication Recon ciliation. Due on due Goal Order Annual PT. Due on due Goal Lipid panel. Due on due Goal PHQ-9. Due on du e Goal UDT. Due on due Goal FIT-DNA. Due on due Goal Creatinine. Due on due Goal ALT (SGPT). Due on due Goal Zoster vaccine (1st). Due on due Goal HPV. Due on due Goal Unhealthy drug u se screening. Due on due Goal Hepatitis C screening. Due o n due Goal HEEL SPLITTER Paperwork. Due on due Goal INNER TUBE TUBER MACHINE OPERATOR Scanned. Due on due Goal Tobacco Use. Due on due Goal Update Social History. Due o n due Goal Height. Due on d ue Goal Review Allergy List. Due on due Goal FIT. Due on due Goal AST (SGOT). Due on due Goal Weight. Due on d ue Goal Medication Recon ciliation. Due on due Goal OARS. Due on due Goal CT-Colonography. Due on due Goal Order Annual PT. Due on due Goal ALT (SGPT). Due on due Goal INNER TUBE TUBER MACHINE OPERATOR Scanned. Due on due Goal Order Annual PT. Due on due Goal AST (SGOT). Due on due Goal Height. Due on d ue Goal Update Social History. Due o n due Goal HEEL SPLITTER Paperwork. Due on due Goal Weight. Due on d ue Goal UDT. Due on due Goal OARS. Due on due Goal Medication Recon ciliation. Due on due Goal Review Allergy List. Due on due Goal PHQ-9. Due on du e Goal Tobacco Use. Due on due Goal Medication Recon ciliation. [...] due Goal UDT. Due on due Goal HEEL SPLITTER Paperwork. Due on due Goal AST (SGOT). Due on due Goal INNER TUBE TUBER MACHINE OPERATOR Scanned. Due on due Goal ALT (SGPT). Due on due Goal Height. Due on d ue Goal AST (SGOT). Due on 21 due Goal Weight. Due on d ue Goal Update Social History. Due o n due Goal Order Annual PT. Due on due Goal HEEL SPLITTER Paperwork. Due on due Goal ALT (SGPT). Due on due Goal UDT. Due on due Goal Tobacco Use. Due on due Goal INNER TUBE TUBER MACHINE OPERATOR Scanned. Due on due Goal Medication Recon ciliation. Due on due Goal OARS. Due on due Goal PHQ-9. Due on du e Goal Review Allergy List. Due on due Goal ALT (SGPT). Due on due Goal UDT. Due on due Goal HEEL SPLITTER Paperwork. Due on due Goal OARS. Due on due Goal INNER TUBE TUBER MACHINE OPERATOR Scanned. Due on due Goal AST (SGOT). Due on due Goal Order Annual PT. Due on due Goal Review Allergy List. [...] Goal Tobacco Use. Due on due Goal HEEL SPLITTER Paperwork. Due on due Goal INNER TUBE TUBER MACHINE OPERATOR Scanned. Due on due Goal Order Annual PT. Due on due Goal Update Social History. Due o n due Goal HEEL SPLITTER Paperwork. Due on due Goal INNER TUBE TUBER MACHINE OPERATOR Scanned. Due on due Goal Review Allergy [...] Goal ALT (SGPT). Due on due Goal INNER TUBE TUBER MACHINE OPERATOR Scanned. Due on due Goal Order Annual PT. Due on due Goal OARS. Due on due Goal PHQ-9. Due on du e Goal Review Allergy List. Due on due Goal Tobacco Use. Due on due Goal UDT. Due on due Goal Medication Recon ciliation. Due on due Goal HEEL SPLITTER Paperwork. Due on due Goal Weight. Due on d ue Goal Update Social History. Due o n due Goal Height. Due on d ue Referral Ordered: Shelbi Fuller PA-CPhysician Assistants & Advanced Practice Nursing Providers : Physician Mixing And Molding Machine Operator (related to Other intervertebral disc degeneration, lumbosacral region) ordered Referral Ordered: Shelbi Fuller PA-CPhysician Assistants & Advanced Practice Nursing Providers : Physician Mixing And Molding Machine Operator (related to Other intervertebral disc degeneration, lumbosacral region) ordered Referral Ordered: Shelbi Fuller PA-CPhysician Assistants & Advanced Practice Nursing Providers : Physician Mixing And Molding Machine Operator (related to Fibromyalgia) ordered Referral Ordered: Shelbi Fuller PA-CPhysician Assistants & Advanced Practice Nursing Providers : Physician Mixing And Molding Machine Operator (related to Fibromyalgia) ordered Referral Ordered: Shelbi Fuller PA-CPhysician Assistants & Advanced Practice Nursing Providers : Physician Mixing And Molding Machine Operator (related to Fibromyalgia) ordered Referral Ordered: Shelbi Fuller PA-CPhysician Assistants & Advanced Practice Nursing Providers : Physician Mixing And Molding Machine Operator (related to Fibromyalgia) ordered Referral Ordered: Shelbi Fuller PA-C -Physician Assistants & Advanced Practice Nursing Providers : Physician Mixing And Molding Machine Operator (related to Fibromyalgia) ordered Referral Ordered: Shelbi Fuller PA-C -Physician Assistants & Advanced Practice Nursing Providers : Physician Mixing And Molding Machine Operator (related to Fibromyalgia) ordered Referral Ordered: Shelbi Fuller PA-CPhysician Assistants & Advanced Practice Nursing Providers : Physician Mixing And Molding Machine Operator (related to Fibromyalgia) ordered Referral Ordered: Shelbi NormanPhysician Assistants & Advanced Practice Nursing Providers : Physician Mixing And Molding Machine Operator (related to Fibromyalgia) ordered Referral Ordered: Shelbi Fuller PA-CPhysician Assistants & Advanced Practice Nursing Providers : Physician Mixing And Molding Machine Operator (related to Fibromyalgia) ordered Referral Referred To: Shelbi Norman [facility]
[address] [place], [address] [phone] Ordered: Referrals: Physician Assistants & Advanced Practice Nursing Providers : Physician . Shelbi Norman ordered Referral Referred To: Shelbi Fuller PA-C [facility]
[address] [place], [address] [phone] Ordered: Referrals: Physician Assistants & Advanced Practice Nursing Providers : Physician . Shelbi Fuller PA-C ordered Referral Ordered: [facility] -Family Medicine (related to Fibromyalgia) ordered Referral Referred To: [address], [address] [phone] Ordered: Referrals: Family Medicine. [facility] ordered Referral Ordered: [facility], [facility] -D -Neurology (related to Other intervertebral disc degeneration, lumbosacral region) ordered Referral Referred To: [facility] [address] [place], [place], [phone] Ordered: Referrals: D -Neurology. [facility], [facility] ordered Referral Ordered: X-RAY EXAM OF KNEE, 3 ordered Appointment Georgiana Grover BOOKED Appointment Georgiana Grover BOOKED Future Order: Lab Order Toxicolo gy Preliminary Panel ([id number]), Sent on: Sent Future Order: Lab Order COMPLIAN CE DRUG ANALYSIS, URINE, WITH MED REPORT ([id number]), Ordered on: Ordered Future Order: Lab Order ALT (SGP T),SERUM ([id number]), Ordered on: Ordered Future Order: Lab Order AST (SGO T),SERUM ([id number]), Ordered on: Ordered Future Order: Lab Order CREATINI NE,SERUM ([id number]), Ordered on: Ordered History Of Present Illness [...] problems to arise and be without meds. Comments: Georgiana presents for follow up and [...] SSD. Denies side effects. No other concerns. Widespread pain Severity level i s 3. [...] also affects her pain. No other concerns. Comments: Georgiana presents for [...] changing positions. Fibromyalgia Severity level i s 7. Location [...] regimen. No other concerns today. Fibromyalgia (comments) Patient is here for follow [...] cold, Rx Meds and changing positions. Fibromyalgia Severity level i s 8. Duration: [...] (urinary). Fibromyalgia (comments) Georgiana moore resents for a virtual follow up and [...] No other concerns today. Fibromyalgia (comments) Georgiana moore resents for a virtual follow up and [...] incontinence (urinary). Fibromyalgia Severity level i s 4-8. 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 Reports increased nerve [...] long enough.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
--- OUTSIDE RECORDS SUMMARY | 2023-02-04 01:39 | XMS_ITS | Continuity of Care Document ---
Author Name Unknown Organization [facility] Address [address] [address] [place] [address] Phone Care Team Providers Care Ventilating Engineer Name Role Phone Unavailable Unavailable Unavailable Allergies, [...] Diagnoses Date Provider Providers Copied on Encounter [facility] [address] [address], [place], [id number], [place] tel:[phone] [facility] Status post gastric bypassScreeni ng colonoscopyHe morrhoidsAbdo riya PainColon Cancer ScreeningBari atric Surgery StatusHemorrh oids 4 No Information Referring Provider: Referral Self. [facility] Maurilio HUITRON [address] [address], [place], [id number], [place] tel:[phone] [facility] Screening colonoscopyEp igastric Pain 4 No Information Referring Provider: Shelbi Adhikari, [address], [place], [address]. tel:[phone] [facility] [address] [address], [place], [id number], [place] tel:[phone] [facility] No Information Oct- 3- 4 No Information [facility], [address] [address], [place], [id number], [place] tel:[phone] [facility] No Information Feb- 2- 3 No Information Offic/outpt E&m Estab Low-mod [facility], [address] [address], [place], [id number], [place] tel:[phone] [facility] Nausea & vomiting (chief complaint) Epigastric PainEpigastri c PainNausea With Vomiting 5 3 No Information Referring Provider: Referral Self. [facility], [address] [address], [place], [id number], [place] tel:[phone] [facility] Epigastric Pain Sep-3 0- 3 No Information Referring Provider: Shelbi Adhikari, [address], [place], [address]. tel:[phone] Offic/outpt E&m Estab Low-mod [facility], [address] [address], [place], [id number], [place] tel:[phone] [facility] Abdominal pain (chief complaint) Epigastric PainEpigastri c Pain Sep-2 3 No Information Referring Provider: Referral Self. [facility], [address] [address], [place], [id number], [place] tel:[phone] [facility] Post-op Aftercare NecGastric/an tral Ulcer UnspecBariatr ic Surgery Status Dec-0 3 No Information Referring Provider: Shelbi Adhikari, [address] [place], [address]. tel:[phone] [facility], [address] [address], [place], [id number], [place] tel:[phone] [facility] Post-op Aftercare NecGastric/an tral Ulcer UnspecGastrod uodenal Dis NosBariatric Surgery StatusGastric /antral Ulcer UnspecBariatr ic Surgery StatusGastrod uodenal Dis Nos 3 No Information Referring Provider: Shelbi Adhikari, [address] [place], [address]. tel:[phone] Offic/outpt [facility] [place] [facility] ROSE HUIT[address] [address], [place], [place], [id number], tel:[phone] [facility] Abdominal pain (chief complaint) Epigastric Pain 3 No Information Referring Provider: Shelbi Adhikari, [address] [place], [address]. tel:[phone] Family History Family Member Type Diagnosis Age [...] colon Payers Payer name Insurance type Covered democrat ID Authoriza 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 [facility] CI [id number] Social History Type Description Quantity Date Captured [...]
[2023-02-04 02:12] LABS: Basophils Absolute Auto 0.03 K/uL (0.00-0.30); Basophils Percent Auto 0.5 % (0.0-3.0); Eosinophils Percent Auto 1.6 % (0.0-7.0); Hematocrit 37.8 % (33.0-51.0); Hemoglobin* 12.6 gm/dL (12.0-16.0); Immature Granulocytes Abs Auto 0.01 K/uL (0.00-0.30); Immature Granulocytes Pct Auto 0.2 %; Lymphocytes Absolute Auto 2.43 K/uL (0.90-2.90); Lymphocytes Percent Auto 39.5 % (20-44); Mean Corpuscular HGB Conc 33 gm/dL (32-36); Mean Corpuscular Hemoglobin 29 pg (26-34); Mean Corpuscular Volume 86 fL (80-100); Monocytes Percent Auto 8.1 % (0.0-11.0); Neutrophils Absolute Auto 3.08 K/uL (1.7-7.0); Neutrophils Percent Auto 50.1 % (42.0-72.0); Platelet Count* 306 K/uL (140-440); RDW Coefficient of Variation % 14.7 % (11.5-15.5); Red Blood Count 4.39 m/uL (4.00-5.20); White Blood Count* 6.15 K/uL (4.50-11.00)
[2023-02-04 02:13] LABS: Slide Review Reflex Yes
[2023-02-04 02:14] LABS: Slide Review Acceptable Review (Acceptable)
--- NOTE | 2023-02-04 02:29 | PC.NURSE ---
Pt to CT via [facility]. All cares explained with family member at bs
[2023-02-04 02:36] LABS: Albumin* 4.2 g/dL (3.3-5.0); Chloride* 101 mmol/L (96-114); Sodium* 137 mmol/L (135-149)
[2023-02-04 02:38] LABS: Creatinine* 0.8 mg/dL (0.5-1.5); Est. Creatinine Clearance* 80.87; Estimated Glomerular Filt Rate 84 ml/min
[2023-02-04 02:39] LABS: Alanine Aminotransferase* 21 U/L (4-35); Alkaline Phosphatase* 84 U/L (40-150); Ammonia* < 9.0 umol/L (13.1-30.0); Anion Gap 10 mEq/L (7-15); Aspartate Amino Transferase* 28 U/L (12-35); Bilirubin Direct* 0.1 mg/dL (0.0-0.5); Bilirubin Total* 0.5 mg/dL (0.1-1.5); Blood Urea Nitrogen* 12 mg/dL (7-30); Calcium* 9.8 mg/dL (8.4-10.6); Carbon Dioxide* 26 mmol/L (20-32); Glucose* 113 mg/dL (60-115); Potassium* 2.7 mmol/L (3.6-5.1); Total Protein* 7.3 g/dL (6.0-8.3)
[2023-02-04 02:40] LABS: Ethanol* < 0.01 % (0.01-0.03); Magnesium* 1.5 mg/dL (1.5-2.6)
[2023-02-04 02:54] LABS: Troponin I* 0.02 ng/mL (0.01-0.04)
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
[2023-02-04] MEDS: POTASSIUM CHLORIDE 10 MEQ CAPSULE ER 20 MEQ PO (03:31)
[2023-02-04] MEDS: POTASSIUM CHLORIDE 10 MEQ/100 ML PIGGYBACK 100 MEQ IVPB (03:31)
--- NOTE | 2023-02-04 03:50 | PC.NURSE ---
report given to Alia bradford/urology surgeon patient going to room 247
--- NOTE | 2023-02-04 04:02 | PC.NURSE ---
travel writer asked if patient would be able to use BR to leave a urine sample, patient stated yes and would like to use a BSC, stated he would step out of the room while she used BSC. when left room patient began repeating kendall, I am looking at the ceiling, do you see where I am looking travel writer asked patient what this meant and why she was repeating it and reminded patient that kendall was outside the room then patient stated I need to know that he went out to the car and that he is safe, I need him to help me to calm down, I am looking at the ceiling Kendall was then called back into room per patients request, while in the room patient began to get frustrated with Kendall, repeating that she is looking at the ceiling and that he doesn't understand. patient tried to calm patient but she continued to get angry with him for not understanding what she was telling him. kendall left the room again. patient then assisted back into bed after not being able to urinate and began having a conversation with Kendall, who is not in the room,. patient states Kendall I know you are trying to help me and keep me from withdrawing but I have been lying to you, I always lie to you and fuck things up. reassurance provided by travel writer and patient states she know she is confused and repeating self, able to be reoriented for short periods but then continues to have conversations with Kendall who isnt in the room.
[2023-02-04] MEDS: LORazepam 2 MG/ML inj 0.5 MG IVP ×3 (05:00→19:51)
--- NOTE | 2023-02-04 06:00 | P.IMHP_ITS ---
Hospitalist- H&P: HPI History of Present Illness Date Seen: 02/04/23 Chief complaint: Fall Narrative: Georgiana España is a 62 year old female who is seen as a interactive telehealth visit. Georgiana is seen in the room initially with her Jamarcus. Unfortunately, it is quite difficult to get a history from Georgiana as she is currently suffering from an acute encephalopathy and is quite belligerent and screaming. The history from the emergency room physician is that she did have a fall a number of days is all and has been having some worsening encephalopathy over the last 2 to 3 days. She has been quite unsteady on her feet and has been having confusion. She did come into the emergency room where she was evaluated for her acute encephalopathy including laboratory evaluation and also CT scan of the head. Unfortunately, there was no clear evidence as to her acute enceph alopathy and she was admitted to the medical service for further evaluation and treatment. Again, upon evaluation, she was originally wanting to get up and leave and was very confused. She was given some IV Ativan and this did help with her behavioral difficulties. She does know that she is in the hospital and does not know the year but otherwise continues to worry about the cardiac murmur that was mentioned in the emergency room and perseverates about it. She denies any acute chest pain or shortness of breath, but does complain of a slight headache over the area that is bruised on her forehead from her recent fall. She otherwise denies any other acute complaints or problems at the time I am seeing her. Review of Systems Status of ROS: Reports: 10 or more systems reviewed and unremarkable except as noted in History and below [facility] Medical History Ataxia ?R27.0 - Ataxia, unspecified (ICD-10) Humeral fracture ?S42.309A - Unspecified fracture of shaft of humerus, unspecified arm, initial encounter for closed fracture (ICD-10) Fibromyalgia ?M79.7 - Fibromyalgia (ICD-10) Chronic back pain ?M54.9 - Dorsalgia, unspecified (ICD-10) ?G89.29 - Other chronic pain (ICD-10) Obesity ?E66.9 - Obesity, unspecified (ICD-10) Chronic, continuous use of opioids ?F11.90 - Opioid use, unspecified, uncomplicated (ICD-10) Chronic pain ?G89.29 - Other chronic pain (ICD-10) Concussion ?S06.0XAA - Concussion with loss of consciousness status unknown, initial encounter (ICD-10) Surgical History History of cholecystectomy ?Z90.49 - Acquired absence of other specified parts of digestive tract (ICD- 10) History of gastric bypass ?Z98.84 - Bariatric surgery status (ICD-10) Family History Father Heart disease Stroke Substance use disorder Mother Diabetes High blood pressure Social History Narrative: She lives with her who is with her most the time during the day. She does not smoke. She occasionally drinks alcohol. Her and son are present with her in the emergency department today. She does not drive. Smoking Status: Never smoker Do you use any of these nicotine containing products: None Second hand tobacco smoke exposure: Yes How often do you have a drink containing alcohol: never How often do you have six or more drinks on one occasion: Never AUDIT-C Alcohol total score: 0 Non-prescribed substance use: denies use service: No Meds Home Medications and Allergies Home Medications Medication Instructions Recorded Confirmed Type chlorthalidone 25 mg tablet mg 07/05/22 History cyclobenzaprine 5 mg tablet mg 07/05/22 History duloxetine PO 07/05/22 History lisinopril 10 mg tablet mg 07/05/22 History oxycodone 10 mg tablet,crush mg PO 07/05/22 History resistant,extended release 12 hr (OxyContin) oxycodone 20 mg tablet,crush mg PO 07/05/22 History resistant,extended release 12 hr (OxyContin) omeprazole 20 mg capsule,delayed 20 mg PO DAILY 02/04/23 02/04/23 History release Allergies Allergy/AdvReac Type Severity Reaction Status Date / Time hydrochlorothiazide Allergy Unknown Verified 02/04/23 03:14 gluten Allergy Uncoded 02/04/23 03:14 Exam Narrative: Exam Narrative: GENERAL: ?vital signs reviewed, well developed and nourished. She is very conf used with obvious encephalopathy HEART: Regular rate and rhythm without any rubs or gallops. There is a 1/6 ALEKSANDER heard best over the aortic area LUNGS: Clear to auscultation bilaterally with good air movement throughout ABDOMEN: Observation from nurse assisted exam, abdomen appears soft, minimally tender diffusely, and nondistended with Positive bowel sounds noted. EXTREMITIES: Strength and sensation is observed to be grossly within normal limits in the upper and lower extremities.? No focal strength deficit is observed. Restraints were placed for patient and staff protection. SKIN:? Observed warm and dry with color normal NEUROLOGIC: She is awake and alert and oriented to place and year, but is very encephalopathic. No other focal neurologic deficiets are noted. Const: Vital Signs, click to edit/add: Vital Signs - 24 hr 02/04/23 00:52 02/04/23 02:00 02/04/23 03:06 Temperature 98.4 F Pulse Rate 105 H 106 H Pulse Rate [Pulse Oximeter] 106 H Respiratory Rate 18 Blood Pressure 163/94 H Blood Pressure [Le ft Upper Arm] 149/84 H Pulse Oximetry 100 98 100 Oxygen Delivery Me thod Room Air 02/04/23 03:29 02/04/23 03:31 Temperature Pulse Rate 100 103 H Pulse Rate [Pulse Oximeter] Respiratory Rate 18 18 Blood Pressure 158/121 H 155/100 H Blood Pressure [Le ft Upper Arm] Pulse Oximetry 97 93 Oxygen Delivery Me thod Documenting provider has reviewed patient's vital signs: yes Exam limitations: altered mental status and behavioral limitations Hospitalist - H&P: Result Labs Labs: Short CBC 02/04/23 Range/Units 01:45 WBC 6.15 (4.50-11.00) K/uL Hgb 12.6 (12.0-16.0) gm/dL Hct 37.8 (33.0-51.0) % Plt Count 306 (140-440) K/uL BMP 02/04/23 01:45 Sodium 137 Potassium 2.7 L* Chloride 101 Carbon Dioxide 26 BUN 12 Creatinine 0.8 Glucose 113 Calcium 9.8 Cardiac Enzymes 02/04/23 Range/Units 01:45 Troponin I 0.02 (0.01-0.04) ng/mL Liver Function 02/04/23 Range/Units 01:45 Total Bilirubin 0.5 (0.1-1.5) mg/dL Direct Bilirubin 0.1 (0.0-0.5) mg/dL AST 28 (12-35) U/L ALT 21 (4-35) U/L Alkaline Phosphatase 84 (40-150) U/L Albumin 4.2 (3.3-5.0) g/dL Imaging CT scan - head: Attestation: I have reviewed the pertinent imaging results. Assessment and Plan Assessment and plan (1) Acute encephalopathy: Status: Acute (2) Acute hypokalemia: Status: Acute (3) Chronic, continuous use of opioids: Problem comment: Does not appear to be suffering from excess opioid ingestion at this time Status: Acute (4) Closed head injury: Status: Acute (5) Concussion: Problem comment: I think the most likely explanation for her head injury and amnesia is that she had another fall hitting her head and then having acute confusion or loss of consciousness. Other possibilities include seizure or syncope. Status: Acute (6) Ataxia: Problem comment: She is mildly ataxic when I examine her today. History of recurrent falls suggests that this is a chronic problem. Cause for this is uncertain. Consider outpatient evaluation Status: Acute Plan At this point Georgiana is admitted to the medical service. I am not quite certain as to the reason for her acute encephalopathy, but I do believe this is most likely an acute mixture of both metabolic and toxic encephalopathy. I do believe that she may be having some medication sequelae with her pain medications that she takes for her fibromyalgia. I do see that she is on a fair amount of high-dose narcotics and also muscle relaxants and I cannot determine whether she is having some withdrawal from these medications or sequelae of the medications. I did have to initially apply some restraints in order to keep her from harming herself or the staff as she was very belligerent and aggressive trying to leave initially. She did have a favorable response to some IV Ativan that was given and she did calm down to the point that we could actually loosen/remove her restraints. She is quite encephalopathic and would be a candidate for a 72-hour hold if she would try to leave. At this point I will continue with some IV fluids and watch her mental status closely. She may be ceballos ving sequelae to the recent fall and concussion that could be contributing to her current condition. The CT scan of her head is somewhat reassuring that it does not show any sign of acute head bleed, but she may need to be evaluated further with an MRI and acute TIRE MOLD TESTER infection is always considered, but she does not have any signs or symptoms of an acute infection as she does not have a leukocytosis, does not have a fever and is not having any meningeal signs. At this point I will give her some IV fluid for hydration and will offer her a diet. Hopefully she will improve her mental status over the next 12 to 24 hours. We will watch for neuro status closely and will get neurochecks. I will offer some Zyprexa as needed for her behavioral difficulties. I have discussed this plan with the patient, her Jamarcus and also her son who was present in the all agreed to proceed. We will continue to follow closely from medical standpoint.
[2023-02-04] MEDS: 0.9 % SODIUM CHLORIDE 1000 ml 1,000 ML 75 ML IV ×2 (06:28→20:07)
--- NOTE | 2023-02-04 07:28 | PC.NURSE ---
pt to floor at 0357, pt confused and combative, pt did not know where she was upon initial arrival to the floor. kendall at bedside. Pt became very paranoid, stating she doesn?t trust anyone and that she needs immediate surgery, or else im going to . She would not let staff assess her. She continued to scream and yell. She said she would scream and yell till someone helped her, yet refused to be compliant with any attempts to assess pt or ask questions, often telling staff to leave the room. Pt then was attempting to get out of bed, flailing arms and kicking. Jonatan TURNER was supervisor industrial arts education for this, he ordered restraints be put in place and for Ativan to be given. Security, Metal Precision Machine Assembler, Extrusion Line Operator, and 2 other staff in room at this time. After Ativan was given, and restraints started to be initiated, pt started to calm and be compliant with cares, 2 ankle restraints were placed for 5 mins, ok?d to remove. Son farooq was called to come and stay with pt since spouse had to leave.
[2023-02-04 09:18] LABS: Chloride* 100 mmol/L (96-114); Potassium* 3.4 mmol/L (3.6-5.1); Sodium* 139 mmol/L (135-149)
[2023-02-04 09:20] LABS: Creatinine* 0.9 mg/dL (0.5-1.5); Est. Creatinine Clearance* 71.88; Estimated Glomerular Filt Rate 73 ml/min
[2023-02-04 09:21] LABS: Anion Gap 10 mEq/L (7-15); Blood Urea Nitrogen* 11 mg/dL (7-30); Calcium* 10.3 mg/dL (8.4-10.6); Carbon Dioxide* 29 mmol/L (20-32); Glucose* 114 mg/dL (60-115)
--- NOTE | 2023-02-04 09:26 | CRLHL7_ITS ---
For Patients: As a result of the Century Cures Act, medical imaging exams and procedure reports are released immediately into your electronic medical record. You may view this report before your referring provider. If you have questions, please contact your health care provider. INDICATION: Altered mental status. TECHNIQUE: Multiplanar multisequence noncontrast MR images acquired through the brain. COMPARISON: CT brain 02/01/2023. FINDINGS: Prominence of the ventricles and sulci compatible with mild diffuse cerebral volume loss. No mass effect or midline shift. Few punctate FLAIR hyperintensities in the supratentorial white matter, typical for minimal chronic microvascular ischemic changes. No intracranial hemorrhage or pathologic extra-axial fluid collection. No diffusion restriction to suggest acute infarction. The major arterial flow voids of the skullbase are preserved. The globes are symmetric. The paranasal sinuses and mastoid air cells are clear. IMPRESSION: 1. No acute infarction, mass effect, or intracranial hemorrhage. 2. Mild diffuse cerebral volume loss and minimal chronic microvascular ischemic changes. Dictated by Brent Perrin MD @ 02/04/2023 11:57:12 AM (Electronically Signed)
[2023-02-04] MEDS: DULOXETINE 30 MG CAPSULE DR 60 MG PO (09:41)
[2023-02-04] MEDS: lisinopriL 10 MG TABLET PO (09:41)
[2023-02-04] MEDS: OMEPRAZOLE 20 MG CAPSULE DR PO (09:41)
[2023-02-04] MEDS: POTASSIUM BICARB 25 MEQ EFFERVESCENT TAB PO (09:42)
[2023-02-04] MEDS: SODIUM CHLORIDE 0.9 % (FLUSH) 10 ML SYRINGE 5 ML IVF ×2 (09:42→21:52)
[2023-02-04 09:51] LABS: Appearance Urine Clear (Clear); Bilirubin Urine Negative (Negative); Blood Urine Trace-intact (Negative); Color Urine Yellow (Yellow); Glucose Urine Negative (Negative); Ketones Urine Negative (Negative); Leukocyte Esterase Urine 1+ (Negative); Nitrite Urine Negative (Negative); Protein Urine Negative (Negative); Specific Gravity Urine 1.015 (1.000-1.030); Urobilinogen Urine 0.2 (0.2-1.0); pH Urine 6.5 (5.0-8.5)
[2023-02-04 10:10] LABS: Bacteria Urine Few; RBC Urine 0-2 (0-2); Squamous Epithelial Cell Urine Few (None-Few)
--- NOTE | 2023-02-04 10:35 | P.IMPN_ITS ---
Progress Note: A&P Assessment and plan (1) Acute encephalopathy: Problem details: - cleared on 02/04 - ddx: concussion from fall on 02/01, iatrogenic (although on opiates chronically with no dosing change), metabolic (hypokalemia), infection, life stressors - initial imaging reassuring, labs stable - MRI ordered 02/04; no acute findings noted - TTE pending, A1c pending - will request tele neurology consult given symptoms and concern for ataxia Status: Acute (2) Murmur: Problem details: - TTE ordered 02/04 Status: Acute (3) Ataxia: Problem details: - noted on previous evaluations in addition to history of falls - TTE and MRI 02/04, will likely require outpatient f/u with PCP and Neuro (tel eNeuro consult requested 02/04) Status: Acute (4) Chronic, continuous use of opioids: Problem details: - does not appear to be suffering from excess opioid ingestion at this time, Utox appropriate Status: Acute (5) Closed head injury: Problem details: - on 02/01, unknown mechanism. ED imaging reassuring on DOI (hospitalization recommended, patient left AMA) Status: Acute (6) Acute hypokalemia: Problem details: - patient and family endorse mild GI distress on 02/03, also on Chlorthalidone - replace and follow Status: Acute Plan - Neurology teleconsult and TTE today - likely home late afternoon or early tomorrow pending results and clinical course - family updated at bedside, questions answered Subjective Date Seen: 02/04/23 Interval history: Georgiana was admitted to the hospital early this morning for an episode of acute confusion and agitation. When I see her, she has cleared and is very apologetic regarding her act shins last night. She does remember getting upset and yelling at family and staff. and cousin are present during exam; they note that these symptoms have not been present in the past. They do note that patient had some GI disturbance yesterday with self resolved nausea and vomiting. Hypokalemia from admission has resolved. Patient has had no changes to her chronic medications (long history of regular opiate use), no ETOH, no other drugs. Notably, has a long history of recurrent falls; these seem to have increased over the past year. Ataxic gait noted in the ER and upon admission. Patient does have occasional presyncope and was noted to have a fall earlier this week. She does not have significant memory of this fall, has facial bruising. Imaging in the ER at that time was reassuring (02/01/23). Exam Narrative: Exam Narrative: GEN: Alert and sitting comfortably in bed, nontoxic. She is answering questions appropriately. HEENT: PERRL and EOMIs bilaterally, no scleral icterus. No facial droop, tongue protrudes midline CV: Regular rate and rhythm (Pulse in the 90s), blowing holosystolic murmur heard best at left sternal border with radiation into bilateral carotids R: LCTA bilaterally without concerning wheezing, air movement adequate Ext: wwp, trace bilateral pretibial edema Skin: Bruising left upper extremity, bruising above right eye Neuro: No facial droop, no resting tremor, no dysmetria on [id number] exam. Gait not observed this morning Psych: Appropriate Const: Vital Signs, click to edit/add: Vital Signs - 24 hr 02/04/23 00:52 02/04/23 02:00 02/04/23 03:06 Temperature 98.4 F Pulse Rate 105 H 106 H Pulse Rate [Pulse Oximeter] 106 H Respiratory Rate 18 Blood Pressure 163/94 H Blood Pressure [Le ft Upper Arm] 149/84 H Blood Pressure [Ri ght Arm] Pulse Oximetry 100 98 100 Oxygen Delivery Me thod Room Air 02/04/23 03:29 02/04/23 03:31 02/04/23 04:00 Temperature 98.1 F Pulse Rate 100 103 H Pulse Rate [Pulse Oximeter] 106 H Respiratory Rate 18 18 18 Blood Pressure 158/121 H 155/100 H Blood Pressure [Le ft Upper Arm] Blood Pressure [Ri ght Arm] 150/82 H Pulse Oximetry 97 93 100 Oxygen Delivery Me thod Room Air 02/04/23 05:05 02/04/23 07:00 Temperature 98.0 F Pulse Rate Pulse Rate [Pulse Oximeter] 102 H Respiratory Rate 18 Blood Pressure Blood Pressure [Le ft Upper Arm] Blood Pressure [Ri ght Arm] 166/95 H Pulse Oximetry 100 96 Oxygen Delivery Me thod Room Air Labs Labs: Laboratory Results - last 24 hr 02/04/23 02/04/23 02/04/23 01:45 08:44 09:43 WBC 6.15 RBC 4.39 Hgb 12.6 Hct 37.8 MCV 86 MCH 29 MCHC 33 RDW Coeff of Swapnil 14.7 Plt Count 306 Neut % (Auto) 50.1 Lymph % (Auto) 39.5 Schley % (Auto) 8.1 Eos % (Auto) 1.6 Baso % (Auto) 0.5 Neut # (Auto) 3.08 Lymph # (Auto) 2.43 Schley # (Auto) 0.50 Eos # (Auto) 0.10 Baso # (Auto) 0.03 Abs Immat Gran (auto) 0.01 Imm/Tot Granulo (auto) 0.2 Diff Slide Review Acceptable Review Sodium 137 139 Potassium 2.7 L* 3.4 L Chloride 101 100 Carbon Dioxide 26 29 Anion Gap 10 10 BUN 12 11 Creatinine 0.8 0.9 Estimated Creat Clear 80.87 71.88 Estimated GFR 84 73 Glucose 113 114 Lactate 1.0 Calcium 9.8 10.3 Magnesium 1.5 Total Bilirubin 0.5 Direct Bilirubin 0.1 AST 28 ALT 21 Alkaline Phosphatase 84 Ammonia < 9.0 L Troponin I 0.02 Total Protein 7.3 Albumin 4.2 TSH 2.070 Urine Color Yellow Urine Appearance Clear Urine pH 6.5 Ur Specific Mcdaniel 1.015 Urine Protein Negative Urine Glucose (UA) Negative Urine Ketones Negative Urine Blood Trace-intact A Urine Nitrite Negative Urine Bilirubin Negative Urine Urobilinogen 0.2 Ur Leukocyte Esterase 1+ A Urine RBC 0-2 Urine WBC 5-10 A Ur Squamous Epith Cells Few Urine Bacteria Few A Ethyl Alcohol < 0.01 L
[2023-02-04] MEDS: OXYCODONE 5 MG TABLET PO (11:11)
[2023-02-04 11:25] LABS: Amphetamine Screen Urine Negative (Negative); Barbiturate Screen Urine Negative (Negative); Benzodiazepines Screen Urine Negative (Negative); Cannabinoid Screen Urine Negative (Negative); Cocaine Screen Urine Negative (Negative); Methadone Screen Urine Negative (Negative); Methamphetamines Screen Urine Negative (Negative); Opiate Screen Urine Negative (Negative); Oxycodone Screen Urine POSITIVE (Negative); Phencyclidine Screen Urine Negative (Negative); Tricyclic Antidepressant Urine Negative (Negative)
[2023-02-04 11:50] LABS: Hemoglobin A1C* 5.34 % (0-5.6)
[2023-02-04 14:55] LABS: Vitamin B12* 345 pg/mL (243-894)
[2023-02-04] MEDS: OLANZapine 5 MG TAB.RAPDIS PO (16:54)
[2023-02-04] MEDS: diphenhydrAMINE 50 MG/ML inj 25 MG IVP (16:54)
[2023-02-04] MEDS: CYANOCOBALAMIN (VITAMIN B-12) 500 MCG TABLET PO (17:57)
[2023-02-04] MEDS: OXYCODONE (CR) 10 MG TAB.ER.12H PO (17:57)
--- NOTE | 2023-02-04 18:17 | PC.NURSE ---
End of Shift- A&Ox4 although will not answer a question directly.. rambles on about another topic. Echo, MRI and teleneuroconsult were completed today. See diagnostics and provider noted regarding details. SBA to the BR. Pt reported nausea after breakfast, no PRN given. Chronic pain in her R knee and L toes on scheduled and PRN oxy. .9 running @ 75 ml/hr. Appetite is fair ate only abot 50% of breakfast and dinner. Voided over 1000 today, 1 large BM today. Labs to recheck tomorrow AM. Family member stated that she was paranoid and thought we were a conspiracy theory and laughing/ making fun out of her. Although pleasant with interactions throughout the day. is in room with patient. Anxious on and off throughout the day IV Ativan given 1x before the MRI. Call light within reach.
[2023-02-04] MEDS: ENOXAPARIN 40 MG/0.4 ML INJ SUBCUT (20:07)
--- NOTE | 2023-02-04 22:04 | W.PM.CROSSCO ---
Subjective Subjective Interval history: patient started on ceftriaxone for possible uti
[2023-02-04] MEDS: cefTRIAXone 1 GM in 0.9 % SODIUM CHLORIDE Mini-bag 100 ML IVPB (22:25)
[2023-02-05 04:19] VITALS: BP 115/47; PULSE 83; RESP 16; TEMP 36.8; O2SAT 99
[2023-02-05] MEDS: OXYCODONE (CR) 10 MG TAB.ER.12H PO (05:41)
[2023-02-05] MEDS: OMEPRAZOLE 20 MG CAPSULE DR PO (05:41)
--- NOTE | 2023-02-05 06:12 | PC.NURSE ---
Pt alert and oriented x3. Afebrile. Pt reports 7/10 pain in right hand and right knee, pain managed with scheduled medications. Pt reported feeling anxious, anxiousness managed with PRN medications. Pt reported feeling a ?burning sensation? when urinating, RN updated , ordered ceftriaxone.?Pt denies?chest pain, SOB, and N/V. Pt is up SBA with walker gait belt to bathroom. Pt slept throughout most of night.??
[2023-02-05 07:01] LABS: Basophils Absolute Auto 0.02 K/uL (0.00-0.30); Basophils Percent Auto 0.2 % (0.0-3.0); Eosinophils Absolute Auto 0.12 K/uL (0.00-0.50); Eosinophils Percent Auto 1.2 % (0.0-7.0); Hematocrit 36.7 % (33.0-51.0); Hemoglobin* 12.2 gm/dL (12.0-16.0); Immature Granulocytes Abs Auto 0.02 K/uL (0.00-0.30); Immature Granulocytes Pct Auto 0.2 %; Lymphocytes Percent Auto 17.9 % (20-44); Mean Corpuscular HGB Conc 33 gm/dL (32-36); Mean Corpuscular Hemoglobin 29 pg (26-34); Mean Corpuscular Volume 87 fL (80-100); Monocytes Percent Auto 5.9 % (0.0-11.0); Neutrophils Percent Auto 74.6 % (42.0-72.0); Platelet Count* 341 K/uL (140-440); RDW Coefficient of Variation % 14.9 % (11.5-15.5); White Blood Count* 10.12 K/uL (4.50-11.00)
[2023-02-05 07:04] LABS: Chloride* 101 mmol/L (96-114); Potassium* 3.5 mmol/L (3.6-5.1); Sodium* 138 mmol/L (135-149)
[2023-02-05 07:06] LABS: Creatinine* 0.7 mg/dL (0.5-1.5); Est. Creatinine Clearance* 92.42; Estimated Glomerular Filt Rate 99 ml/min
[2023-02-05 07:07] LABS: Anion Gap 8 mEq/L (7-15); Blood Urea Nitrogen* 14 mg/dL (7-30); Calcium* 9.5 mg/dL (8.4-10.6); Carbon Dioxide* 29 mmol/L (20-32); Glucose* 102 mg/dL (60-115)
[2023-02-05 07:12] LABS: Slide Review Reflex No
[2023-02-05 07:57] LABS: Vitamin B12* 438 pg/mL (243-894)
[2023-02-05 08:01] VITALS: BP 147/62; PULSE 90; RESP 16; TEMP 36.7; O2SAT 95
[2023-02-05 08:06] LABS: TSH With Reflex to FT4* 0.638 uIU/mL (0.270-4.200)
[2023-02-05] MEDS: OXYCODONE 5 MG TABLET PO (08:26)
[2023-02-05] MEDS: DULOXETINE 30 MG CAPSULE DR 60 MG PO (08:26)
[2023-02-05] MEDS: SODIUM CHLORIDE 0.9 % (FLUSH) 10 ML SYRINGE 5 ML IVF (08:27)
[2023-02-05] MEDS: lisinopriL 10 MG TABLET PO (08:27)
[2023-02-05] MEDS: CYANOCOBALAMIN (VITAMIN B-12) 500 MCG TABLET PO (08:27)
[2023-02-05 10:00] VITALS: PULSE 85
--- NOTE | 2023-02-05 13:25 | PC.NURSE ---
Discharge-- Pleasant and cooperative, alert and oriented patient discharged to home via wheelchair with at approximately 1245. VSS and pt is afebrile. SPO2 maintained >90% on RA. Patient appears well managed with scheduled Oxycodone only. Discharge education was provided including diagnosis info, symptoms to report, medications and follow up plan. No further questions asked. SL was removed with tip intact.
--- NOTE | 2023-02-05 16:20 | P.DS_ITS ---
DS: Providers Provider Time Seen by Provider: 10:00 Date Seen: 02/05/23 Date of admission: 02/04/23 03:56 Primary care physician: Gregory Wang DO Admitting Clinician: Zaire Albarran MD Consults: 02/04/23 05:44 Consult to Physical Therapy [CONS] Routine Comment: Reason(s) for PT Consult:: Evaluate and Treat Any Restrictions?:: No Restrictions Consult to Pl[employer]der [CONS] Routine Comment: Reason for Consult:: Social Service Consult 02/04/23 05:47 Consult to Occupational Therapy [CONS] Routine Comment: Reason(s) for OT Consult:: Evaluate and Treat Any Restrictions?:: No Restrictions Attending Physician on discharge: Angel Blackwell MD Date of Discharge: 02/05/23 DS: Diagnosis Discharge Diagnosis (1) Acute confusion: Status: Acute (2) Closed head injury: Status: Acute Problem details: - on 02/01, unknown mechanism. ED imaging reassuring on DOI (hospitalization recommended, patient left AMA) (3) Concussion: Status: Acute (4) Amnesia: Status: Acute Problem details: Amnesia likely due to concussion. Alternative explanation could be seizure with postictal status (5) Acute encephalopathy: Status: Acute Problem details: - cleared on 02/04 - ddx: concussion from fall on 02/01, iatrogenic (although on opiates chronically with no dosing change), metabolic (hypokalemia), infection, life stressors - initial imaging reassuring, labs stable - MRI ordered 02/04; no acute findings noted - TTE pending, A1c pending - will request tele neurology consult given symptoms and concern for ataxia (6) Chronic, continuous use of opioids: Status: Acute Problem details: - does not appear to be suffering from excess opioid ingestion at this time, Utox appropriate (7) Ataxia: Status: Acute Problem details: - noted on previous evaluations in addition to history of falls - TTE and MRI 02/04, will likely require outpatient f/u with PCP and Neuro (teleNeuro consult requested 02/04) (8) Acute hypokalemia: Status: Acute Problem details: - patient and family endorse mild GI distress on 02/03, also on Chlorthalidone - replace and follow (9) Murmur: Status: Acute Problem details: - TTE 02/04/2023 preliminary report demonstrates hyperdynamic left ventricle with mild valvular disease, final report still pending DS: Summary Hospital Course Hospital Course: Patient 1st presented to the emergency department on 02/01/2023, and Dr. Rowley was asked to admit her and noted the following: Georgiana España is a 62 year old female with chronic pain, fibromyalgia, obesity, hypertension admitted to the hospital after being found down at home by her , confused and with a bruise over her right forehead. The patient does not recall any of the events that occurred leading up to her being found down by her . reports that he was at home with her until about 3:00 p.m. today. He left the house for about an hour and returned about 4:00 p.m. at that time he found her partly laying on the bed. She seemed confused and did not recall anything that happened. She has a new bruise above her right eyebrow. Her son came home about 530. He noted that her pupils were quite small though he was looking at her outside in the sunshine. She is brought to the emergency room for evaluation. She does have occasional problems with falling at home. She does not have any history of syncope or seizure. She has no recollection of ever having a loss of consciousness episode or finding herself on the floor. She is on chronic oxycodone 10 mg q.i.d. and OxyContin 20 mg b.i.d. her controls her opioids in says he she does not have access to them. She denies taking excess. She denies any other ingestions of mood altering substances. She reports taking her medications as prescribed. In the emergency department she had evaluation including head and C-spine CT scan showing no acute injury. Vital signs have been normal other than persistent hypertension. Her mental status is back to baseline. She is adamantly demanding to go home. She reports no recent illness, shortness of breath, chest pain, abdominal pain, nausea, vomiting, diarrhea, urinary problems. No bleeding or clotting problems. She does report feeling dehydrated today but has not had any restriction on access to food and fluid. She also reports being quite fatigued recently. She reports this is been going on for months or years. I was asked to admit the patient to the hospital for ongoing neurologic monitoring. Patient left against medical advice on 02/01/2023. She was reassessed on 02/04/[address] Ceron admitted her and noted the following: Interval history: Georgiana was admitted to the hospital early this morning for an episode of acute confusion and agitation. When I see her, she has cleared and is very apologetic regarding her act shins last night. She does remember getting upset and yelling at family and staff. and cousin are present during exam; they note that these symptoms have not been present in the past. They do note that patient had some GI disturbance yesterday with self resolved nausea and vomiting. Hypokalemia from admission has resolved. Patient has had no changes to her chronic medications (long history of regular opiate use), no ETOH, no other drugs. Notably, has a long history of recurrent falls; these seem to have increased over the past year. Ataxic gait noted in the ER and upon admission. Patient does have occasional presyncope and was noted to have a fall earlier this week. She does not have significant memory of this fall, has facial bruising. Imaging in the ER at that time was reassuring (02/01/23). Patient was subsequently assessed by telehealth neurology and on 02/04/2023 Dr. Rodriguez concluded the following: ?62-year-old woman ataxia and cognitive decline. I suspect that the 2 are related. MRI of the brain is negative for an explanation. Her gait appears ataxic and wide-based. She has a history of gastric bypass therefore vitamin deficiencies are possible. She has not been taking vitamins for years now. Another possible underlying causes a neuro degenerative process affecting gait as well as cognition. She does not have signs of parkinsonism or movement disorder. If she does have a neuro degenerative process and is 1 that also causes cerebellar degeneration. I recommend for starting with the neuropathy and vitamin deficiency workup. Of note vitamin B12 is about 300, which can certainly still cause neurologic complications. Obtain methylmalonic acid level. Replace vitamin B12. Vitamin B1, vitamin B6, vitamin-D, plasma copper, vitamin-D levels. SPEP and UPEP. TSH. PT and OT. Patient and note that patient is back to baseline on date of discharge. She declines home PT and OT. She indicates she will be adhering to balance recommendations provided to her by our therapist. She will follow up with her primary care physician as specified, hopefully with results of various laboratory studies back by that time. Status at Discharge Cognitive/behavioral status at discharge: Back to baseline. Suspect transient cognitive deficiency related to concussion. Overall status at discharge: patient is back to baseline Time Spent with Patient Time attestation: Total time spent providing and/or coordinating discharge services: Time spent: Greater than 30 minutes Exam Narrative: Exam Narrative: GEN: Alert and sitting comfortably in bed, nontoxic. She is answering questions appropriately. HEENT: PERRL and EOMIs bilaterally, no scleral icterus. No facial droop, tongue protrudes midline CV: Regular rate and rhythm (Pulse in the 90s), blowing holosystolic murmur heard best at left sternal border with radiation into bilateral carotids R: LCTA bilaterally without concerning wheezing, air movement adequate Ext: wwp, trace bilateral pretibial edema Skin: Bruising left upper extremity, bruising above right eye Neuro: No facial droop, no resting tremor, no dysmetria on [id number] exam. Broad-based gait. Psych: Appropriate Const: Vital Signs, click to edit/add: Vital Signs - 24 hr 02/04/23 18:59 02/04/23 19:40 02/04/23 22:56 Temperature 98.5 F Pulse Rate 96 91 Pulse Rate [Pulse Oximeter] 99 Respiratory Rate 18 Blood Pressure [Ri ght Arm] 118/71 Pulse Oximetry 94 Oxygen Delivery Me thod Room Air 02/04/23 22:56 02/04/23 22:56 02/05/23 04:19 Temperature 97.9 F 98.3 F Pulse Rate Pulse Rate [Pulse Oximeter] 99 91 83 Respiratory Rate 18 16 16 Blood Pressure [Ri ght Arm] 113/64 115/47 L Pulse Oximetry 95 99 Oxygen Delivery Me thod Room Air Room Air 02/05/23 08:01 02/05/23 10:00 Temperature 98.1 F Pulse Rate 85 Pulse Rate [Pulse Oximeter] 90 Respiratory Rate 16 Blood Pressure [Ri ght Arm] 147/62 H Pulse Oximetry 95 Oxygen Delivery Me thod Room Air Documenting provider has reviewed patient's vital signs: yes DS: Data Data Completed and Pending Labs on day of discharge: Labs from last 24 hours 02/05/23 05:43 WBC 10.12 RBC 4.20 Hgb 12.2 Hct 36.7 MCV 87 MCH 29 MCHC 33 RDW Coeff of Swapnil 14.9 Plt Count 341 Neut % (Auto) 74.6 H Lymph % (Auto) 17.9 L [place] % (Auto) 5.9 Eos % (Auto) 1.2 Baso % (Auto) 0.2 Neut # (Auto) 7.50 H Lymph # (Auto) 1.80 [place] # (Auto) 0.60 Eos # (Auto) 0.12 Baso # (Auto) 0.02 Abs Immat Gran (auto) 0.02 Imm/Tot Granulo (auto) 0.2 Sodium 138 Potassium 3.5 L Chloride 101 Carbon Dioxide 29 Anion Gap 8 BUN 14 Creatinine 0.7 Estimated Creat Clear 92.42 Estimated GFR 99 Glucose 102 Calcium 9.5 Vitamin B12 438 Vit B12 Status Pending Alpha-Tocopherol Vit E Pending Gamma-Tocopherol Vit E Pending TSH 0.638 Preliminary micro results at discharge 02/04/23 Unknown Urine Culture - Preliminary Urine,Clean Catch Culture in Progress 02/04/23 01:45 Blood Culture - Preliminary Blood NO GROWTH AFTER 24 HOURS 02/04/23 01:45 Blood Culture - Preliminary Blood NO GROWTH AFTER [address] angiogram of head and neck: Attestation: I have reviewed the pertinent imaging results. Radiologist's impression: IMPRESSION: Normal CT angiogram of the head without intracranial aneurysm or other neurovascular abnormality. MRI - head: Attestation: I have reviewed the pertinent imaging results. Radiologist's impression: IMPRESSION: 1. No acute infarction, mass effect, or intracranial hemorrhage. 2. Mild diffuse cerebral volume loss and minimal chronic microvascular ischemic changes. Discharge Plan Discharge Disposition: Home, Self-Care Date of Admission: 02/04/23 03:56 Attending Provider on Discharge: Angel Blackwell Consulting Providers: Braeden Rodriguez Primary Care Provider: Gregory Wang Condition: Improved Anticipated Discharge Date/Time: 02/05/23 13:00 Discharge Medications: New cephalexin 500 mg capsule 500 mg PO TID Qty: 15 0RF trazodone 50 mg tablet 50 mg PO QHS Qty: 30 2RF cyanocobalamin (vitamin B-12) [Vitamin B-12] 500 mcg tablet 500 mcg PO DAILY Qty: 60 1RF Continued omeprazole 20 mg capsule,delayed release(DR/EC) 20 mg PO DAILY oxycodone 5 mg tablet 5 - 10 mg PO Q4-6H PRN (Reason: chronic pain) duloxetine 60 mg capsule,delayed release(DR/EC) 60 mg PO DAILY chlorthalidone 25 mg tablet 25 mg PO DAILY Patient Comments: lisinopril 10 mg tablet 10 mg PO DAILY Patient Comments: cyclobenzaprine 5 mg tablet 5 - 10 mg PO Q8H PRN Patient Comments: oxycodone [OxyContin] 10 mg tablet,oral only,ext.rel.12 hr 10 mg PO Q12H Patient Comments: Discharge Orders: Discharge Order (Routine); Ordered 02/05/23 Ordered By: Angel Blackwell Patient Education: Cephalexin (By mouth), Trazodone (By mouth), Vitamin B-12 (By mouth), Urinary Tract Infection in Women (DC), Fall Prevention (DC) Additional Instructions: 1. Follow up with your primary home health care coordinator in 1-2 weeks. Results of blood tests recommended by your neurologist, Dr. Braeden Rodriguez, will need to be reviewed by your doctor when you see your doctor in follow-up. 2. Make time to care for yourself. 3. Fall prevention precautions! 4. Return to clinic or hospital sooner if warranted. Activity Level: Activity as Tolerated and Use Walker Discharge Diet: Regular Follow Up Appointments: Provider,Not a Local [Referring] - Gregory Wang DO [Primary Care Provider] - (see Dr. Wang in 1-2 weeks for hospital d/c followup. Take a copy of your neurology telehealth consult with your follow-up appointment with your primary doctor. ) Forms: [employer] Info Instructions
[2023-02-05 19:06] LABS: Folate, Serum 14.9 ng/mL (>=5.9)
[2023-02-05 20:01] LABS: Cortisol, Serum 28.2 ug/dL
[2023-02-06 16:25] LABS: Copper, Serum/Plasma 152.6 ug/dL (80.0-155.0)
[2023-02-07 12:01] LABS: Albumin 4.08 g/dL (3.75-5.01); Alpha 1 Globulin 0.32 g/dL (0.19-0.46); Alpha 2 Globulin 0.77 g/dL (0.48-1.05); Total Protein, Serum 7.1 g/dL (6.3-8.2)
[2023-02-08 08:33] LABS: Vitamin B1, Whole Blood 156 nmol/L (70-180)
[2023-02-08 12:44] LABS: MMA Vitamin B12 Status 0.27 umol/L (0.00-0.40)
== END 2023-02-05 12:41 | disposition home or self-care (01) | DRG 52 ==
LOC: ED 02:53 → MEDSURG 03:57
PROVIDERS: Family Medicine; Hospitalist; Admitting Provider Family Medicine; Emergency Provider Family Medicine; PCP Family Medicine; Visit Provider Family Medicine
DX: G93.41 Metabolic encephalopathy (principal); G92.8 Other toxic encephalopathy; N39.0 Urinary tract infection, site not specified; S06.0XAA Concussion with loss of consciousness status unknown, initial encounter; R27.0 Ataxia, unspecified; F11.90 Opioid use, unspecified, uncomplicated; E87.6 Hypokalemia; R41.3 Other amnesia; R41.0 Disorientation, unspecified; I10 Essential (primary) hypertension; R01.1 Cardiac murmur, unspecified; E66.9 Obesity, unspecified; M79.7 Fibromyalgia; G89.29 Other chronic pain; M54.9 Dorsalgia, unspecified; Z98.84 Bariatric surgery status; Z91.81 History of falling
CPT/HCPCS: 36415; 70496; 70498; 70551; 80048; 80076; 80306; 81001; 82077; 82140; 82525; 82533; 82607; 82746; 83036; 83605; 83735; 84165; 84207; 84425; 84443; 84446; 84484; 85025; 87040; 87086; 87186; 93005; 93306; 97112; 97116; 97162; 97165; 97530; 97535; 99285; G0427; A9270; J0696; J1200; J1650; J2060; J3480; J7030; Q9967